=== PATIENT | male | born 1950 | race Caucasian/White ===

== ENCOUNTER → 2018-03-08 | Outpatient (CLI) | payer MEDICARE ==
--- NOTE | 2018-03-08 15:01 | CT ---
EXAMINATION TYPE: CT angio chest DATE OF EXAM: 03/08/2018 2:43 PM COMPARISON: None HISTORY: Chest pain and shortness of breath. CT DLP: 261.4 mGycm Automated exposure control for dose reduction was used. CONTRAST: CTA scan of the thorax is performed with IV Contrast, patient injected with 60ml mL of Isovue 370, pu lmonary embolism protocol. . FINDINGS: LUNGS: The lungs are grossly clear, there is no concerning parenchymal mass or nodule identified. T here is no pleural effusion or pneumothorax seen. The tracheobronchial tree is patent. Changes noted . 3 mm nodule right upper lobe MEDIASTINUM: There is satisfactory enhancement of the pulmonary artery and its branches, there is no CT evidence for pulmonary embolism. There are no greater than 1 cm hilar or mediastinal lymph nodes. No pericardial effusion is seen. Atherosclerotic change of the aorta. Coronary artery calcificatio n noted. Tiny pericardial effusion. Mild atherosclerotic change of the great vessels. Ascending aorta measures a maximal dimension of 3.7 cm OTHER: There is a spinal stimulator device or wire overlying the thoracic spine. Hypertrophic and de generative change of the vertebral column. 2.8 cm right adrenal lesion measures -25 Hounsfield units suggestive of adenoma. IMPRESSION: 1. No diagnostic evidence of central pulmonary embolism. 2. 3 mm right upper lobe pulmonary nodule too small to characterize recommend 6 month follow-up study to assess stability. 3. Correlate for COPD. 4. Tiny pericardial effusion.
== END | disposition home or self-care (01) ==
LOC: RADCTMAIN 13:25
PROVIDERS: ATTEND Family Medicine
DX: R91.1 Solitary pulmonary nodule (principal); R07.9 Chest pain, unspecified; R06.02 Shortness of breath; Z88.5 Allergy status to narcotic agent
CPT/HCPCS: 85379; 82565; 84520; 71275; Q9967

== ENCOUNTER → 2019-12-13 | Outpatient (CLI) | payer MEDICARE | END | disposition home or self-care (01) | LOC: LABWHC1 13:16 | PROVIDERS: ATTEND Family Medicine | DX: Z03.818 Encounter for observation for suspected exposure to other biological agents ruled out (principal) | CPT/HCPCS: U0003; C9803 ==

== ENCOUNTER → 2020-09-05 | Outpatient (CLI) | payer MEDICARE ==
[2020-09-05 18:54] LABS: Basophils # (A) 0.02 X 10*3/uL (0.00-0.10); Basophils % (A) 0.3 %; Eosinophils # (A) 0.14 X 10*3/uL (0.04-0.35); Eosinophils % (A) 2.4 %; HCT 35.9 % (39.6-50.0); HGB 10.9 g/dL (13.0-17.0); Lymphocytes # (A) 1.56 X 10*3/uL (0.90-5.00); Lymphocytes % (A) 26.5 %; MCH 29.2 pg (27.0-32.0); MCHC 30.4 g/dL (32.0-37.0); MCV 96.2 fL (80.0-97.0); Mean Platelet Volume 9.1 fL (9.5-12.2); Monocytes # (A) 0.48 X 10*3/uL (0.20-1.00); Monocytes % (A) 8.2 %; Neutrophils # (A) 3.66 X 10*3/uL (1.80-7.70); Neutrophils % (A) 62.3 %; Platelet Count 450 X 10*3/uL (140-440); RBC 3.73 X 10*6/uL (4.40-5.60); RDW 13.8 % (11.5-14.5); WBC 5.88 X 10*3/uL (4.50-10.00)
[2020-09-05 22:50] LABS: % Iron Saturation 18.4 (15.00-50.00); African American GFR (CKD) 71.1 (60.0-200.0); Albumin 4.1 g/dL (3.80-4.90); Albumin/Globulin Ratio 1.58 (1.60-3.17); Anion Gap 9.7 mmol/L (4.00-12.00); BUN/Creat Ratio 15.83 Ratio (12.00-20.00); Calcium 9.8 mg/dL (8.7-10.3); Carbon Dioxide 27.3 mmol/L (21.6-31.8); Globulin 2.6 g/dL (1.6-3.3); Non-African American GFR(CKD) 61.3 (60.0-200.0); Potassium 4.7 mmol/L (3.5-5.5); Total Bilirubin 0.4 mg/dL (0.3-1.2); Total Protein 6.7 g/dL (6.2-8.2)
[2020-09-05 23:33] LABS: Ferritin 617.5 ng/mL (22.0-322.0)
== END | disposition home or self-care (01) ==
LOC: LABWHC1 09:41
PROVIDERS: ATTEND Internal Medicine
DX: K25.9 Gastric ulcer, unspecified as acute or chronic, without hemorrhage or perforation (principal)
CPT/HCPCS: 36415; 80053; 82728; 83540; 83550; 85025

== ENCOUNTER → 2020-09-22 | Outpatient (CLI) | payer MEDICARE | END | disposition home or self-care (01) | LOC: RADMRIMAIN 08:49 | PROVIDERS: ATTEND Internal Medicine | DX: Z53.9 Procedure and treatment not carried out, unspecified reason (principal) ==

== ENCOUNTER 2020-10-07 08:23 | Day surgery (SDC) | payer MEDICARE ==
[2020-10-02 10:49] VITALS: BMI 24.8
[~2020-10-07 08:23] MED LIST: LACTATED RINGERS 1,000 ML IV SCH; LIDOCAINE 1% (10MG/ML) FOR IV START INTRADERMA PRN
[2020-10-07 08:47] VITALS: RESP 20; TEMP 97.6
[2020-10-07] MEDS ORDERED: LIDOCAINE 1% INJ 10MG/ML (20 ML MDV) ONE (09:14)
[2020-10-07] MEDS ORDERED: PROPOFOL 10 MG/ML 20 ML VIAL IV ONE (09:14)
--- NOTE | 2020-10-07 09:34 | P.PCN ---
Date of Procedure: 10/07/20 Description of Procedure: BRIEF HISTORY: Patient is a 70-year-old male presents for outpatient esophagogastroduodenoscopy for evaluation of pancreatitis and history of peptic ulcer disease. The patient had been seen at an outside hospital where he was treated for ileus, GI bleed and splenic vein thrombosis. EGD on 08/13/20 showed severe esophagitis, a cratered gastric ulcer in a linear gastric ulcer in the body and all with no active bleeding. The patient has been on Protonix therapy which has been decreased to daily. PROCEDURE PERFORMED: Esophagogastroduodenoscopy with biopsy. PREOPERATIVE DIAGNOSIS: Pancreatitis, peptic ulcer disease. ESTIMATED BLOOD LOSS: Minimal. IV sedation per anesthesia. PROCEDURE: After informed consent was obtained, the patient was brought into the endoscopy unit. IV sedation was administered by Anesthesia under continuous monitoring. Initially the Olympus GIF-190 video endoscope was inserted into the mouth. Esophagus intubated without any difficulty. It was gradually advanced into the stomach and duodenum and carefully examined. The bulb and the second part of the duodenum appeared normal, with biopsies taken. The scope at this time was withdrawn to the stomach, adequately insufflated with air, and upon careful examination, mucosa of the antrum, body, cardia and the fundus appeared normal, with some mild punctate erythema suggestive of mild gastritis biopsy of the antrum and body taken. Previously noted gastric ulcers appear to be well healed. The scope was then withdrawn into the esophagus. The GE junction was located at 41 cm from the incisors. The esophagus appeared marco antonio, with lower esophageal biopsies taken l. There were no erosions or ulcerations seen and the patient tolerated the procedure well. IMPRESSION: 1. Mild gastritis. 2. Previously noted peptic ulcer disease and esophagitis appears to be well- healed. 3. Biopsies of duodenum, antrum body and lower esophagus. RECOMMENDATIONS: The findings of this examination were discussed with the patient and his . Okay to resume diet. Okay to resume medications today and anticoagulation tomorrow. Recommend patient remains on daily Protonix therapy. Await pathology from biopsies. Follow up in the clinic as scheduled.
[2020-10-07 09:49] VITALS: PULSE 62
[2020-10-07 09:55] VITALS: BP 110/71
== END 2020-10-07 10:05 | disposition home or self-care (01) ==
LOC: ORWHC2ENDO 08:23
PROVIDERS: ATTEND Internal Medicine
DX: K29.50 Unspecified chronic gastritis without bleeding (principal); I10 Essential (primary) hypertension; E78.5 Hyperlipidemia, unspecified; Z87.891 Personal history of nicotine dependence; F41.9 Anxiety disorder, unspecified; K21.00 Gastro-esophageal reflux disease with esophagitis, without bleeding; Z88.5 Allergy status to narcotic agent; Z79.01 Long term (current) use of anticoagulants; Z79.891 Long term (current) use of opiate analgesic
CPT/HCPCS: 88305; 88312; 43239; J2001; J2704

== ENCOUNTER → 2020-10-08 | Outpatient (CLI) | payer MEDICARE ==
[2020-10-08 14:03] LABS: Basophils % (A) 0 %; Eosinophils # (A) 0.2 k/uL (0-0.7); Eosinophils % (A) 4 %; HCT 31.9 % (39.0-53.0); HGB 10.9 gm/dL (13.0-17.5); Lymphocytes # (A) 1.3 k/uL (1.0-4.8); Lymphocytes % (A) 24 %; MCH 31.2 pg (25.0-35.0); MCHC 34.1 g/dL (31.0-37.0); MCV 91.6 fL (80.0-100.0); Mean Platelet Volume 6.6; Monocytes # (A) 0.3 k/uL (0-1.0); Monocytes % (A) 6 %; Neutrophils # (A) 3.4 k/uL (1.3-7.7); Neutrophils % (A) 65 %; Platelet Count 323 k/uL (150-450); RBC 3.48 m/uL (4.30-5.90); RDW 14.6 % (11.5-15.5); WBC 5.3 k/uL (3.8-10.6)
[2020-10-08 14:16] LABS: Albumin 3.8 g/dL (3.5-5.0); Calcium 9.2 mg/dL (8.4-10.2); Potassium 5.1 mmol/L (3.5-5.1); Total Bilirubin 0.3 mg/dL (0.2-1.3); Total Protein 6.1 g/dL (6.3-8.2)
--- NOTE | 2020-10-08 15:23 | CT ---
CT pancreas HISTORY: Acute pancreatitis Helical acquisition obtained through the pancreas. Post contrast administration, patient received 100 cc Isovue-370 IV. Automated exposure control for dose reduction. DLP 755.10 mGycentimeters. No comparisons There is a focal oval area of low-attenuation involving the body tail the pancreas measuring approxim ately 11 cm in greatest transverse dimension by 6 cm in AP dimension by 6 cm in cephalad to caudal di mension with a peripheral enhancing wall, fluid attenuation, possibly internal septations. The liver, gallbladder, left adrenal gland, kidneys, and spleen are unremarkable. Right adrenal gland shows a low dense focus measuring 2.1 cm likely representing an adenoma. Infrarenal abdominal aorta show change measuring 4.3 calcification and plaque noted. No retroperitone al adenopathy or ascites. Fluid-filled loops of small bowel are noted and are nonspecific. Lung bases show emphysematous changes. No pleural effusion, there is small pericardial effusion. Postop changes are noted to the lumbar spine, there is degenerative disc change in the visualized spi ne. IMPRESSION: Findings may represent sequela of pancreatitis, pseudocyst formation along the pancreas, lesser curvature of the stomach. Infrarenal abdominal aortic aneurysm. Postop changes.
[2020-10-09 20:34] LABS: % Iron Saturation 23.08 (15.00-50.00)
[2020-10-09 20:42] LABS: Ferritin 210.7 ng/mL (22.0-322.0)
== END | disposition home or self-care (01) ==
LOC: RADCTMAIN 13:11
PROVIDERS: ATTEND Internal Medicine
DX: K85.90 Acute pancreatitis without necrosis or infection, unspecified (principal); I71.4 Abdominal aortic aneurysm, without rupture
CPT/HCPCS: 80053; 82728; 83540; 83550; 85025; 74160; Q9967

== ENCOUNTER → 2021-02-18 | Outpatient (CLI) | payer MEDICARE ==
--- NOTE | 2021-02-18 12:25 | NM ---
EXAMINATION TYPE: NM stress cardiolite complete DATE OF EXAM: 02/18/2021 COMPARISON: NONE HISTORY: Chest pain TECHNIQUE: After the intravenous administration of 9 mCi Tc 99m Sestamibi - Rest images obtained 45 minutes post injection. The patient exercised using a DELIA protocol and 1 minute prior to peak exe rcise was injected with 24.3 mCi Tc 99m Sestamibi - Stress images obtained 20 minutes post injection. FINDINGS: Targeted heart rate was achieved during performance of the study. Review of stress and rest SPECT marisol ges demonstrates multiple tiny area of stress-induced reversibility involving the inferior septum. G ated analysis shows normal wall motion with an estimated left ventricular ejection fraction of 56 %. IMPRESSION: 1. Cannot exclude a tiny area of stress-induced reversible ischemia in the inferior septum correlate clinically.
--- NOTE | 2021-02-18 14:30 | EST ---
EXERCISE STRESS AGE: 70 SEX: M HT: 69 WT: 174 lbs PROTOCOL: Cardiolite STAGE: 2 DURATION OF EXERCISE: 8:00 HEART RATE REST: 69 BLOOD PRESSURE REST: 130/85 MAXIMUM HEART RATE ACHIEVED: 129 MAXIMUM BLOOD PRESSURE: 200/102 85% MPHR: 128 100% MPHR: 151 METS: 7.1 RESULTS: Baseline EKG revealed normal sinus rhythm, with LVH by voltage criteria, isolated PVCs and no significant ST-segment changes. Patient exercised on standard King protocol for 8 minutes and achieved a maximal heart rate of 129 beats per minute which is 85% of predicted maximum. Developed fatigue and shortness of breath. There was a lot of baseline artifact but no ST-segment changes to indicate ischemia. Peak heart rate was almost 150 beats per minute. There were no EKG changes to indicate ischemia. There was a lot of baseline artifact. By EKG criteria, this is a negative stress test with fair exercise capacity. The nuclear scan results which are more pertinent, will be reported by the radiologist. The patient also complained of some nondescript chest tightness, but the quality of pain was not anginal. The nuclear scan results which are more pertinent, will be reported by the radiologist. MMODL / IJN: [id number] /
== END | disposition home or self-care (01) ==
LOC: RADNMMAIN 09:06
PROVIDERS: ATTEND Urology
DX: I20.9 Angina pectoris, unspecified (principal)
CPT/HCPCS: 93017; 78452; A9500

== ENCOUNTER 2021-02-27 06:32 | Day surgery (SDC) | payer MEDICARE ==
[2021-02-25 13:56] VITALS: BMI 25.4
[~2021-02-27 06:32] MED LIST changes: +ALPRAZolam 0.25 MG TAB PO PRN; +ALPRAZolam 0.5 MG TAB PO PRN; +ASPIRIN 325 MG TAB PO STA; +ATORVASTATIN 80 MG TAB PO STA; -LACTATED RINGERS 1,000 ML IV SCH; -LIDOCAINE 1% (10MG/ML) FOR IV START INTRADERMA PRN; +NITROGLYCERIN SL TABS 0.4 MG TAB SUBLINGUAL PRN; +SODIUM CHLORIDE 0.9% 1,000 ML in EMPTY BAG 1 BAG IV SCH
[2021-02-27 07:18] VITALS: TEMP 97.9
[2021-02-27] MEDS ORDERED: fentaNYL (PF) 50 MCG/ML 2 ML AMP ONE (07:26)
[2021-02-27] MEDS ORDERED: HEPARIN SODIUM 1,000 UN/ML (10ML VL) ONE (07:26)
[2021-02-27] MEDS ORDERED: fentaNYL (PF) 50 MCG/ML 2 ML AMP IV ONE (07:39)
[2021-02-27] MEDS ORDERED: LIDOCAINE 1% INJ 10MG/ML (20 ML MDV) SQ ONE (07:45)
[2021-02-27] MEDS ORDERED: MIDAZOLAM 2 MG/2 ML VIAL IV ONE (07:47)
[2021-02-27] MEDS ORDERED: HEPARIN SODIUM 1,000 UN/ML (10ML VL) IV ONE (07:52)
[2021-02-27] MEDS ORDERED: IOPAMIDOL-370 125ML BTL INJ ONE ×2 (08:03)
[2021-02-27] MEDS ORDERED: IOPAMIDOL-370 100ML BTL INJ ONE (08:06)
[2021-02-27] MEDS ORDERED: RX INFO: IV CONTRAST WAS GIVEN 1 EACH MISC MISCELLANE PRN (08:22)
[2021-02-27] MEDS ORDERED: SODIUM CHLORIDE 0.9% 1,000 ML IV SCH (08:30)
[2021-02-27] MEDS ORDERED: SENNOSIDES 8.6 MG TAB PO SCH (09:00)
[2021-02-27] MEDS ORDERED: CHOLECALCIFEROL 25 MCG (1000 IU) TABLET PO SCH (09:00)
[2021-02-27] MEDS ORDERED: FERROUS SULFATE 325 MG TAB PO SCH (09:00)
[2021-02-27 09:13] VITALS: RESP 16
--- NOTE | 2021-02-27 11:55 | CC ---
CARDIAC CATHETERIZATION REPORT DATE OF PROCEDURE: Mr. Adhikari is a 70-year-old male with known history of hypertension, hyperlipidemia and abdominal aortic aneurysm who has been complaining of episodes of chest discomfort. He underwent myocardial perfusion imaging recently that revealed evidence of inducible ischemia. In view of that, recommendation was made regarding cardiac catheterization. The procedure as well as its risks and complications were discussed with the patient, who was in full understanding and agreement. PROCEDURE DESCRIPTION: Patient was brought to the labelling machine operator in a fasting, semi-sedated state after receiving fentanyl and Benadryl and achieving a moderate conscious sedated state. Using Xylocaine anesthesia and Seldinger technique, a 6-Irish sheath was introduced in the right radial artery. Selective right and left coronary angiography was performed using 5- Irish 3.5 bend right and left Emelia catheters. Multiple views were taken of the arteries, including hemiaxial views. Following that, a 5-Irish tight pigtail catheter was introduced into the left ventricle and a 30-degree [place] view of the left ventricle was obtained. Following that, catheter and sheath were removed. Hemostasis was obtained with deployment of a TR band. There was no immediate complication. Patient was returned to his room in stable condition. Of note, the patient received 4000 units of intravenous heparin as well as intra-arterial verapamil. FINDINGS: LEFT MAIN: This is a short-sized vessel, bifurcating into left circumflex and left anterior descending coronary artery. Left main coronary artery has no evidence of high- grade stenosis. LEFT ANTERIOR DESCENDING ARTERY: This is a large-sized vessel reaching to the apex with a wrap around the apex segment giving rise to 2 small to moderate-sized diagonal branches proximally. The left anterior descending artery as well as its branches have no evidence of obstructive coronary artery disease. LEFT CIRCUMFLEX: This is a dominant vessel giving rise to a large obtuse marginal branch proximally, distally bifurcating into PDA and posterolateral segment and branches. The left circumflex as well as its branches have no evidence of obstructive coronary artery disease. RIGHT CORONARY ARTERY: This vessel is moderate in caliber, codominant, has a superior takeoff and has no evidence of high-grade stenosis. LEFT VENTRICULOGRAM: Left ventriculogram was performed in 30-degree [place] view and revealed normal left ventricular size and systolic function. Evidence of abdominal aortic aneurysm was noted, infrarenal. There was no significant mitral regurgitation. HEMODYNAMICS: There was no gradient across the aortic valve. The left ventricular end- diastolic pressure was 12-16 mmHg. CONCLUSION: 1. Normal coronary arteries. 2. Normal left ventricular size and systolic function. 3. Evidence of abdominal aortic aneurysm. RECOMMENDATIONS: In view of findings and anatomy, I have recommended continued medical therapy with the aggressive risk factor modifications that have been initiated. Those findings and recommendations were discussed with the patient and his family, who are in full understanding and agreement. MMODL / IJN: [id number] /
--- NOTE | 2021-02-27 11:55 | LTR ---
February 27, 2021 To: Dr. Nicole Re: Jordi Adhikari (52) Dear Dr. Nicole, I had the pleasure of performing cardiac catheterization on Mr. Adhikari at [facility] on February 27, and a full copy of the procedure will be forwarded to you. In brief, he was found to have no evidence of obstructive coronary artery disease, with preserved left ventricular size and systolic function, and evidence of abdominal aortic aneurysm. Based on these findings, I have recommended continued medical therapy with the aggressive coronary risk modifications that have been initiated. Thank you again for allowing me to participate in this patient's care. Please feel free to call with any questions. Sincerely, aRhul Spicer M.D. ABBEY / LENA: [id number] /
[2021-02-27 12:41] VITALS: BP 131/78; PULSE 50
[2021-02-27] MEDS ORDERED: traZODone HCL 100 MG TAB PO SCH (21:00)
[2021-02-27] MEDS ORDERED: ATORVASTATIN 80 MG TAB PO SCH (21:00)
[2021-02-28] MEDS ORDERED: NON FORMULARY DRUG (Omeprazole 20 MG Capsule) PO SCH (07:30)
== END 2021-02-27 12:00 | disposition home or self-care (01) ==
LOC: CATHCVL 06:32
PROVIDERS: ATTEND Internal Medicine Interventional Cardiology
DX: R07.9 Chest pain, unspecified (principal); Z20.822 Contact with and (suspected) exposure to COVID-19; I10 Essential (primary) hypertension; E78.5 Hyperlipidemia, unspecified; I71.4 Abdominal aortic aneurysm, without rupture; Z87.891 Personal history of nicotine dependence; J44.9 Chronic obstructive pulmonary disease, unspecified; I73.9 Peripheral vascular disease, unspecified; Z79.01 Long term (current) use of anticoagulants; Z79.899 Other long term (current) drug therapy
CPT/HCPCS: 93458; 87635; C1894; C1769; J2250; J2001; J3010; J1644; Q9967 ×2

== ENCOUNTER → 2021-05-05 | Outpatient (CLI) | payer MEDICARE ==
[2021-05-05 17:53] LABS: African American GFR (CKD) >90 (>60 ml/min/1.73 sqM); Blood Urea Nitrogen 19 mg/dL (9-20); Non-African American GFR(CKD) 80 (>60 ml/min/1.73 sqM)
--- NOTE | 2021-05-06 08:21 | CT ---
EXAMINATION TYPE: CT abdomen w con DATE OF EXAM: 05/05/2021 COMPARISON: 10/08/2020 HISTORY: Pseudocyst, pancreas. Hx pancreatitis. Consulted w/Dr. Mendez, no pancreatic protocol necess kelli, Abdomen with is sufficient CT DLP: 541.20 mGycm CONTRAST: CT scan of the abdomen and pelvis is performed with Oral Contrast and with IV Contrast, patient injec vicky with 100 mL of Isovue 300. FINDINGS: LUNG BASES-: No visible nodule. No infiltrate. LIVER/GB: No calcified gallstones. No space occupying hepatic lesion. Biliary tree is of normal ca liber. PANCREAS: There is pseudocyst again noted along the course of the of the pancreatic body which is sma ller in size and currently measures 9.1 cm x 5.0 cm versus 12.2 x 5.9 cm previously. No additional co llections are seen. The remainder of the pancreas is unremarkable. SPLEEN: No splenic enlargement. No lesion seen. ADRENALS: Stable right adrenal nodule measuring 1.8 cm. No thickening. KIDNEYS/BLADDER: No hydronephrosis. No nephrolithiasis. No distinct renal mass. Urinary bladder g rossly unremarkable. BOWEL: Normal appendix. Normal bowel caliber. No inflammation. GENITAL ORGANS: No gross abnormality. LYMPH NODES: No greater than 1cm abdominal or pelvic lymph nodes are appreciated. AORTA: Infrarenal abdominal aortic aneurysm measuring 3.8 cm AP dimension. OSSEOUS STRUCTURES: No significant abnormality is seen. OTHER: No significant additional abnormality is seen. IMPRESSION: 1. pseudocyst again noted along the course of the of the pancreatic body which is smaller in size and currently measures 9.1 cm x 5.0 cm versus 12.2 x 5.9 cm previously. No additional collections are se en.
== END | disposition home or self-care (01) ==
LOC: RADCTMAIN 16:43
PROVIDERS: ATTEND Internal Medicine Gastroenterology
DX: K86.3 Pseudocyst of pancreas (principal)
CPT/HCPCS: 82565; 84520; 74160; 36415; Q9967

== ENCOUNTER → 2021-10-26 | Outpatient (CLI) | payer MEDICARE ==
[2021-10-26 09:37] LABS: African American GFR (CKD) >90 (>60 ml/min/1.73 sqM); Blood Urea Nitrogen 14 mg/dL (9-20); Non-African American GFR(CKD) 87 (>60 ml/min/1.73 sqM)
--- NOTE | 2021-10-26 12:29 | CT ---
EXAMINATION TYPE: CT abdomen w con DATE OF EXAM: 10/26/2021 COMPARISON: CT dated 05/05/2021 HISTORY: Pseudocyst of Pancreas CT DLP: 561.8 mGycm Automated exposure control for dose reduction was used. TECHNIQUE: Helical acquisition of images was performed from the lung bases through the top of iliac crest to include entire abdomen. CONTRAST: Performed without Oral Contrast and with IV Contrast, patient injected with 100 mL of Isovue 300. FINDINGS: LUNG BASES: COPD changes. LIVER/GB: No significant abnormality is appreciated. PANCREAS: Slight interval regression of the previously seen heterogeneous cyst replacing the pancreat ic body and tail measuring 4.8 x 8.7 x 5.2 cm compared to 4.8 x 9.2 x 5.3 cm previously. Unremarkable pancreatic head. SPLEEN: No significant abnormality is seen. ADRENALS: Stable right adrenal nodule measuring 19 mm. Unremarkable left adrenal. KIDNEYS: Tiny focal cortical defect is seen at the lateral aspect of the right kidney. Stable slightl y hyperdense left renal cyst likely representing a proteinaceous/hemorrhagic cyst. Unremarkable kidne ys otherwise. BOWEL: Unremarkable stomach, duodenum and visualized small bowel. No gross abnormality of the visual ized portion of the colon. LYMPH NODES: No pathologically enlarged abdominal lymph nodes. OSSEOUS STRUCTURES: Previous lower lumbar and left sacroiliac joint fixation. FREE AIR: No free air is visualized. OTHER: Arterial atherosclerotic calcification. Multilobar infrarenal abdominal aortic aneurysm measur ing up to 5 cm, for vascular surgery consultation. No sizable abdominal ascites. Small fat-containing umbilical hernia. IMPRESSION: Persistent heterogeneous cyst replacing the pancreatic body and tail, only slightly regressed in size compared to April 2021 CT scan as described above. Other findings and recommendations as describe d above.
== END | disposition home or self-care (01) ==
LOC: RADCTMAIN 08:45
PROVIDERS: ATTEND Internal Medicine Gastroenterology
DX: K86.3 Pseudocyst of pancreas (principal)
CPT/HCPCS: 82565; 84520; 74160; 36415; Q9967

== ENCOUNTER 2022-02-14 11:30 | Inpatient (IN) | payer MEDICARE ==
[2022-02-14] MEDS ORDERED: DIPH,PERTUS(ACELL)TETVAC-LF 0.5 ML VIAL IM ONE (11:43)
[2022-02-14] MEDS ORDERED: SODIUM CHLORIDE 0.9% 500 ML 500 ML IV STA (11:43)
[2022-02-14] MEDS ORDERED: KETOROLAC 15 MG/ML 1 ML VIAL IVP STA (11:45)
[2022-02-14] MEDS ORDERED: MORPHINE SULFATE 2 MG/ML SYRINGE IVP STA ×2 (11:46→12:32)
[2022-02-14 11:52] LABS: Glucose,Whole Blood 130 mg/dL (70-110)
[2022-02-14 12:12] LABS: Basophils % (A) 0 %; Eosinophils # (A) 0.2 k/uL (0-0.7); Eosinophils % (A) 2 %; HCT 37.7 % (39.0-53.0); HGB 12.7 gm/dL (13.0-17.5); Lymphocytes # (A) 0.8 k/uL (1.0-4.8); Lymphocytes % (A) 10 %; MCH 31.1 pg (25.0-35.0); MCHC 33.7 g/dL (31.0-37.0); Mean Platelet Volume 7.4; Monocytes # (A) 0.3 k/uL (0-1.0); Monocytes % (A) 3 %; Neutrophils # (A) 6.5 k/uL (1.3-7.7); Neutrophils % (A) 83 %; Platelet Count 373 k/uL (150-450); RBC 4.08 m/uL (4.30-5.90); RDW 13.3 % (11.5-15.5); WBC 7.8 k/uL (3.8-10.6)
[2022-02-14 12:16] LABS: MCV 92.5 fL (80.0-100.0)
[2022-02-14 12:17] LABS: ALT 27 U/L (4-49); AST 30 U/L (17-59); African American GFR (CKD) >90 (>60 ml/min/1.73 sqM); Albumin 4.4 g/dL (3.5-5.0); Alcohol <10 mg/dL; Alkaline Phosphatase 89 U/L (38-126); Anion Gap 12 mmol/L; Blood Urea Nitrogen 16 mg/dL (9-20); Calcium 9.6 mg/dL (8.4-10.2); Carbon Dioxide 22 mmol/L (22-30); Chloride 101 mmol/L (98-107); Glucose 138 mg/dL (74-99); Non-African American GFR(CKD) 85 (>60 ml/min/1.73 sqM); Potassium 4.5 mmol/L (3.5-5.1); Sodium 135 mmol/L (137-145); Total Bilirubin 0.5 mg/dL (0.2-1.3); Total Protein 6.5 g/dL (6.3-8.2)
[2022-02-14 12:18] LABS: Partial Thromboplastin Time 23.2 sec (22.0-30.0); Prothrombin Time 11.2 sec (9.0-12.0)
--- NOTE | 2022-02-14 12:21 | XR ---
Right wrist. HISTORY: Pain following trauma. COMPARISON: None. TECHNIQUE: 3 views of the right wrist are obtained. FINDINGS: There is a markedly comminuted intra-articular displaced fracture of the distal right radius with ape x volar angulation. There is a probable small avulsion fracture of the ulnar styloid as well. The carpal bones and articulations are normal. No soft tissue abnormalities are seen. IMPRESSION: Fracture of the right wrist as described above.
--- NOTE | 2022-02-14 12:24 | XR ---
Pelvis: HISTORY: Pain following trauma. COMPARISON: None. TECHNIQUE: 2 AP views of the pelvis were obtained. FINDINGS: There is fusion of the left SI joint. There is metallic fusion of the lower lumbar spine. The osseous structures are mildly osteopenic. There is no diastases of the pubic symphysis. There are no pelvic fractures. The hips are normal and symmetric bilaterally without fracture or disl ocation. IMPRESSION: 1. Postsurgical changes of the lower lumbar spine and pelvis. 2. No evidence of acute fracture.
--- NOTE | 2022-02-14 12:25 | XR ---
EXAMINATION TYPE: XR chest 1V portable DATE OF EXAM: 02/14/2022 COMPARISON: NONE HISTORY: Trauma TECHNIQUE: Single frontal view of the chest is obtained. FINDINGS: There is no focal air space opacity, pleural effusion, or pneumothorax seen. The cardiac silhouette size is within normal limits. The osseous structures are intact. IMPRESSION: No acute process.
--- NOTE | 2022-02-14 12:31 | CT ---
EXAMINATION TYPE: CT brain denise drake DATE OF EXAM: 02/14/2022 COMPARISON: None HISTORY: Fall from [address] DLP: 1676.5 mGycm Automated exposure control for dose reduction was used. TECHNIQUE: CT scan of the head and cervical spine are performed without contrast. FINDINGS: There is no acute intracranial hemorrhage, mass effect, or midline shift identified. The ventricles and sulci are within normal limits in size. The globes are intact and the visualized sin uses are clear. Cervical spine is visualized in its entirety from C1 through upper thoracic levels and demonstrates s atisfactory alignment without evidence of acute fracture or dislocation. Prevertebral soft tissue ap pears within normal limits. The C1-C2 articulation is unremarkable. There is severe degenerative di sc C6-7 level and moderate degenerative disc disease at the C3-4 and C5-C6 levels. IMPRESSION: 1. There is no acute fracture or dislocation evident in the cervical spine. 2. No acute intracranial hemorrhage, mass effect, or midline shift is seen.
--- NOTE | 2022-02-14 12:32 | ED ---
General Adult HPI - General Chief complaint: Fall Stated complaint: fell 5' from ladder, open fx arm Time Seen by Provider: 02/14/22 11:30 Source: patient, EMS, RN notes reviewed, old records reviewed Limitations: no limitations - History of Present Illness Initial comments: This is a 71-year-old male who presents emergency department after falling off of a ladder his feet red 5 feet in the air. Patient is on blood thinners. Patient doesn't think he hit his head he doesn't remember necessarily. Patient complains of right wrist pain. Patient also states he hurt his right buttocks area. Patient denies any headache patient denies numbness weakness. Patient does complain of some posterior neck pain. Patient denies any chest or upper back pain. Patient denies any abdominal pain. Patient denies any other extremity pain. - Related Data Home Medications Medication Instructions Recorded Confirmed Apixaban [Eliquis] 5 mg PO BID 10/02/20 02/27/21 Atorvastatin [Lipitor] 80 mg PO HS 10/02/20 02/27/21 Cholecalciferol [Vitamin D3 (25 25 mcg PO DAILY 10/02/20 02/27/21 Mcg = 1000 Iu)] Ferrous Sulfate [Feosol] 325 mg PO DAILY 10/02/20 02/27/21 Sennosides [Senna] 8.6 mg PO BID 10/02/20 02/27/21 diazePAM [Valium] 10 mg PO HS 10/02/20 02/27/21 oxyCODONE-APAP 10-325MG [Percocet 1 tab PO Q6HR PRN 10/02/20 02/27/21 10-325 mg] traZODone HCL 100 mg PO HS 10/02/20 02/27/21 Omeprazole [PriLOSEC] 20 mg PO AC-BRKFST 02/25/21 02/27/21 Allergies Allergy/AdvReac Type Severity Reaction Status Date / Time hydrocodone bitartrate Allergy Itching Unverified 02/25/21 13:45 [From Vicodin] Review of Systems ROS Statement: Those systems with pertinent positive or pertinent negative responses have been documented in the HPI. ROS Other: All systems not noted in ROS Statement are negative. Past Medical History Past Medical History: Chest Pain / Angina, GERD/Reflux, Hyperlipidemia, Hypertension, Prostate Disorder Additional Past Medical History / Comment(s): blood clot in splenic vein, pancreatitis, constipation, History of Any Multi-Drug Resistant Organisms: None Reported Past Surgical History: Back Surgery, Tonsillectomy Additional Past Surgical History / Comment(s): back surgery x 5(Fusion,laminectomy,cage) Past Anesthesia/Blood Transfusion Reactions: Motion Sickness Past Psychological History: No Psychological Hx Reported Smoking Status: Former smoker - Past Family History Mother Family Medical History: No Reported History General Exam - General Exam Comments Initial Comments: GENERAL: Patient is well-developed and well-nourished. Patient is nontoxic and well- hydrated and is in moderate distress. ENT: Neck is soft and supple. No significant lymphadenopathy is noted. Oropharynx is clear. Moist mucous membranes. Patient had some spinous process tenderness at about the C4 region EYES: The sclera were anicteric and conjunctiva were pink and moist. Extraocular movements were intact and pupils were equal round and reactive to light. Eyelids were unremarkable. PULMONARY: Unlabored respirations. Good breath sounds bilaterally. No audible rales rhonchi or wheezing was noted. CARDIOVASCULAR: There is a regular rate and rhythm without any murmurs gallops or rubs. ABDOMEN: Soft and nontender with normal bowel sounds. SKIN: Skin is clear with no lesions or rashes and otherwise unremarkable. NEUROLOGIC: Patient is alert and oriented x3. Cranial nerves II through XII are grossly intact. Motor and sensory are also intact. Normal speech, volume and content. Symmetrical smile. MUSCULOSKELETAL: Patient has some tenderness on the iliac crest on the right. Patient also has a gross deformity of the right wrist and it appears to be open. Patient does have normal capillary refill and his fingertips and normal sensation of the fin gertips LYMPHATICS: No significant lymphadenopathy is noted PSYCHIATRIC: Normal psychiatric evaluation. Limitations: no limitations Course Vital Signs 02/14/22 02/14/22 11:43 12:15 Temperature 98 F 98 F Pulse Rate 60 51 L Respiratory 20 16 Rate Blood Pressure 163/109 182/105 O2 Sat by Pulse 100 99 Oximetry Medical Decision Making - Medical Decision Making EKG shows sinus bradycardia 54 bpm NC interval 244 QRS is 78 QT interval 410 QTC is 398. Patient's EKG shows no ST segment elevation or depression. I called as a priority [address] of the brain and C-spine showed no acute abnormality. At this point time I went in the room and remove the collar and examine his neck he was still significantly tender and he was tender with any flexion or turning of the head right to left side but the collar back in place. X-ray of the chest and pelvis show no acute abnormality however he still having considerable right lower pelvic pain and the SI joint area and some in the lumbar sacral spine now so a CAT scan will be ordered. Wrist shows a comminuted distal radius fracture with significant displacement there is also a fracture of the distal ulna CT of the C-spine abdomen pelvis showed no acute abnormality. Dr. Contreras came back down and will be taking the patient to the OR Wound was irrigated the emergency department. - Lab Data Result diagrams: 02/14/22 11:54 02/14/22 11:54 Lab Results 02/14/22 02/14/22 02/14/22 Range/Units 11:50 11:51 11:54 WBC 7.8 (3.8-10.6) k/uL RBC 4.08 L (4.30-5.90) m/uL Hgb 12.7 L (13.0-17.5) gm/dL Hct 37.7 L (39.0-53.0) % MCV 92.5 D (80.0-100.0) fL MCH 31.1 (25.0-35.0) pg MCHC 33.7 (31.0-37.0) g/dL RDW 13.3 (11.5-15.5) % Plt Count 373 (150-450) k/uL MPV 7.4 Neutrophils % 83 % Lymphocytes % 10 % Monocytes % 3 % Eosinophils % 2 % Basophils % 0 % Neutrophils # 6.5 (1.3-7.7) k/uL Lymphocytes # 0.8 L (1.0-4.8) k/uL Monocytes # 0.3 (0-1.0) k/uL Eosinophils # 0.2 (0-0.7) k/uL Basophils # 0.0 (0-0.2) k/uL PT (9.0-12.0) sec INR (<1.2) APTT (22.0-30.0) sec Sodium (137-145) mmol/L Potassium (3.5-5.1) mmol/L Chloride (98-107) mmol/L Carbon Dioxide (22-30) mmol/L Anion Gap mmol/L BUN (9-20) mg/dL Creatinine (0.66-1.25) mg/dL Est GFR (CKD-EPI)AfAm (>60 ml/min/1.73 sqM) Est GFR (CKD-EPI)NonAf (>60 ml/min/1.73 sqM) Glucose (74-99) mg/dL POC Glucose (mg/dL) 130 H (70-110) mg/dL POC Glu Family Services Coordinator ID [place], Daniel Calcium (8.4-10.2) mg/dL Total Bilirubin (0.2-1.3) mg/dL AST (17-59) U/L ALT (4-49) U/L Alkaline Phosphatase (38-126) U/L Troponin I (0.000-0.034) ng/mL Total Protein (6.3-8.2) g/dL Albumin (3.5-5.0) g/dL Urine Opiates Screen (NotDetected) Ur Oxycodone Screen (NotDetected) Urine Methadone Screen (NotDetected) Ur Propoxyphene Screen (NotDetected) Ur Barbiturates Screen (NotDetected) U Tricyclic Antidepress (NotDetected) Ur Phencyclidine Scrn (NotDetected) Ur Amphetamines Screen (NotDetected) U Methamphetamines Scrn (NotDetected) U Benzodiazepines Scrn (NotDetected) Urine Cocaine Screen (NotDetected) U Marijuana (THC) Screen (NotDetected) Serum Alcohol mg/dL Blood Type O Positive Blood Type Recheck O Pos Bld Type Recheck Status No Antibody Screen NEGATIVE Spec Expiration Date 02/17/2022234902/14/22 02/14/22 02/14/22 Range/Units 11:54 11:54 11:54 WBC (3.8-10.6) k/uL RBC (4.30-5.90) m/uL Hgb (13.0-17.5) gm/dL Hct (39.0-53.0) % MCV (80.0-100.0) fL MCH (25.0-35.0) pg MCHC (31.0-37.0) g/dL RDW (11.5-15.5) % Plt Count (150-450) k/uL MPV Neutrophils % % Lymphocytes % % Monocytes % % Eosinophils % % Basophils % % Neutrophils # (1.3-7.7) k/uL Lymphocytes # (1.0-4.8) k/uL Monocytes # (0-1.0) k/uL Eosinophils # (0-0.7) k/uL Basophils # (0-0.2) k/uL PT 11.2 (9.0-12.0) sec INR 1.0 (<1.2) APTT 23.2 (22.0-30.0) sec Sodium 135 L (137-145) mmol/L Potassium 4.5 (3.5-5.1) mmol/L Chloride 101 (98-107) mmol/L Carbon Dioxide 22 (22-30) mmol/L Anion Gap 12 mmol/L BUN 16 (9-20) mg/dL Creatinine 0.91 (0.66-1.25) mg/dL Est GFR (CKD-EPI)AfAm >90 (>60 ml/min/1.73 sqM) Est GFR (CKD-EPI)NonAf 85 (>60 ml/min/1.73 sqM) Glucose 138 H (74-99) mg/dL POC Glucose (mg/dL) (70-110) mg/dL POC Glu Family Services Coordinator ID Calcium 9.6 (8.4-10.2) mg/dL Total Bilirubin 0.5 (0.2-1.3) mg/dL AST 30 (17-59) U/L ALT 27 (4-49) U/L Alkaline Phosphatase 89 (38-126) U/L Troponin I <0.012 (0.000-0.034) ng/mL Total Protein 6.5 (6.3-8.2) g/dL Albumin 4.4 (3.5-5.0) g/dL Urine Opiates Screen (NotDetected) Ur Oxycodone Screen (NotDetected) Urine Methadone Screen (NotDetected) Ur Propoxyphene Screen (NotDetected) Ur Barbiturates Screen (NotDetected) U Tricyclic Antidepress (NotDetected) Ur Phencyclidine Scrn (NotDetected) Ur Amphetamines Screen (NotDetected) U Methamphetamines Scrn (NotDetected) U Benzodiazepines Scrn (NotDetected) Urine Cocaine Screen (NotDetected) U Marijuana (THC) Screen (NotDetected) Serum Alcohol <10 mg/dL Blood Type Blood Type Recheck Bld Type Recheck Status Antibody Screen Spec Expiration Date 02/14/22 Range/Units 12:44 WBC (3.8-10.6) k/uL RBC (4.30-5.90) m/uL Hgb (13.0-17.5) gm/dL Hct (39.0-53.0) % MCV (80.0-100.0) fL MCH (25.0-35.0) pg MCHC (31.0-37.0) g/dL RDW (11.5-15.5) % Plt Count (150-450) k/uL MPV Neutrophils % % Lymphocytes % % Monocytes % % Eosinophils % % Basophils % % Neutrophils # (1.3-7.7) k/uL Lymphocytes # (1.0-4.8) k/uL Monocytes # (0-1.0) k/uL Eosinophils # (0-0.7) k/uL Basophils # (0-0.2) k/uL PT (9.0-12.0) sec INR (<1.2) APTT (22.0-30.0) sec Sodium (137-145) mmol/L Potassium (3.5-5.1) mmol/L Chloride (98-107) mmol/L Carbon Dioxide (22-30) mmol/L Anion Gap mmol/L BUN (9-20) mg/dL Creatinine (0.66-1.25) mg/dL Est GFR (CKD-EPI)AfAm (>60 ml/min/1.73 sqM) Est GFR (CKD-EPI)NonAf (>60 ml/min/1.73 sqM) Glucose (74-99) mg/dL POC Glucose (mg/dL) (70-110) mg/dL POC Glu Family Services Coordinator ID Calcium (8.4-10.2) mg/dL Total Bilirubin (0.2-1.3) mg/dL AST (17-59) U/L ALT (4-49) U/L Alkaline Phosphatase (38-126) U/L Troponin I (0.000-0.034) ng/mL Total Protein (6.3-8.2) g/dL Albumin (3.5-5.0) g/dL Urine Opiates Screen Detected H (NotDetected) Ur Oxycodone Screen Detected H (NotDetected) Urine Methadone Screen Not Detected (NotDetected) Ur Propoxyphene Screen Not Detected (NotDetected) Ur Barbiturates Screen Not Detected (NotDetected) U Tricyclic Antidepress Not Detected (NotDetected) Ur Phencyclidine Scrn Not Detected (NotDetected) Ur Amphetamines Screen Not Detected (NotDetected) U Methamphetamines Scrn Not Detected (NotDetected) U Benzodiazepines Scrn Detected H (NotDetected) Urine Cocaine Screen Not Detected (NotDetected) U Marijuana (THC) Screen Not Detected (NotDetected) Serum Alcohol mg/dL Blood Type Blood Type Recheck Bld Type Recheck Status Antibody Screen Spec Expiration Date Critical Care Time Critical Care Time: Yes Total Critical Care Time: 35 Disposition Clinical Impression: Fall, Neck pain, Fracture of radial shaft, with ulna, right, open Disposition: ADMITTED IP TO THIS HOSP Referrals: None,Stated [Primary Care Provider] - 1-2 days Time of Disposition: 14:10
[2022-02-14] MEDS ORDERED: MORPHINE SULFATE 4 MG/ML SYRINGE IVP STA ×2 (12:34→13:47)
[2022-02-14] MEDS ORDERED: ONDANSETRON 4 MG/2 ML VIAL IVP STA (12:39)
[2022-02-14 13:22] LABS: Amphetamine Screen,Urine Not Detected (NotDetected); Barbiturate Screen,Urine Not Detected (NotDetected); Benzodiazepines Screen,Urine Detected (NotDetected); Cocaine Screen,Urine Not Detected (NotDetected); Methadone Screen, Urine Not Detected (NotDetected); Opiate Screen,Urine Detected (NotDetected); Oxycodone Screen, Urine Detected (NotDetected); Phencyclidine Screen,Urine Not Detected (NotDetected); Tricyclic Antidepressant,Urine Not Detected (NotDetected); Urn Cannabinoid Scrn Not Detected (NotDetected)
--- NOTE | 2022-02-14 13:26 | P.HPOR ---
History of Present Illness H&P Date: 02/14/22 Chief Complaint: Neck pain, right wrist pain 71 yo male presented as a trauma activation after fall 5ft off a ladder at home while doing work around the house. He fell straight on his back and buttock and right wrist he felt a pop. He states pain in his right wrist and refuse to move at this time. He also has pain in his neck and back with any motion. He has a hx of several neck and back surgeries. Denies any numbness/tingling. Denies any bowel or bladder issues. Denies any weakness. states no f/c/sob/cp at this time. Denies any BHT or LOC with the fall. Review of Systems 16 pt ROS completed as staetd in HPI. All others reviewed negative. Constitutional: Reports as per HPI Past Medical History Past Medical History: Chest Pain / Angina, GERD/Reflux, Hyperlipidemia, Hypertension, Prostate Disorder Additional Past Medical History / Comment(s): blood clot in splenic vein, pancreatitis, constipation, History of Any Multi-Drug Resistant Organisms: None Reported Past Surgical History: Back Surgery, Tonsillectomy Additional Past Surgical History / Comment(s): back surgery x 5(Fusion,laminectomy,cage) Past Anesthesia/Blood Transfusion Reactions: Motion Sickness Past Psychological History: No Psychological Hx Reported Smoking Status: Former smoker - Past Family History Mother Family Medical History: No Reported History Medications and Allergies Home Medications Medication Instructions Recorded Confirmed Type Apixaban [Eliquis] 5 mg PO BID 10/02/20 02/27/21 History Atorvastatin [Lipitor] 80 mg PO HS 10/02/20 02/27/21 History Cholecalciferol [Vitamin D3 (25 25 mcg PO DAILY 10/02/20 02/27/21 History Mcg = 1000 Iu)] Ferrous Sulfate [Feosol] 325 mg PO DAILY 10/02/20 02/27/21 History Sennosides [Senna] 8.6 mg PO BID 10/02/20 02/27/21 History diazePAM [Valium] 10 mg PO HS 10/02/20 02/27/21 History oxyCODONE-APAP 10-325MG [Percocet 1 tab PO Q6HR PRN 10/02/20 02/27/21 History 10-325 mg] traZODone HCL 100 mg PO HS 10/02/20 02/27/21 History Omeprazole [PriLOSEC] 20 mg PO AC-BRKFST 02/25/21 02/27/21 History Allergies Allergy/AdvReac Type Severity Reaction Status Date / Time hydrocodone bitartrate Allergy Itching Unverified 02/25/21 13:45 [From Vicodin] Physical Examination Osteopathic Statement: *. No significant issues noted on an osteopathic structural exam other than those noted in the History and Physical/Consult. AOX3 NAD, non septic, C collar in place TTP about the neck, T and L spine midline TTP about the right wrist with obvious deformity. There is small poke hole on the ulnar side of the wrist and distal radius due to fracture puncture likely. Pain with motion of any joint at this time but able to move relatively well NV intact distally UE and LE b/l Neg hoffmans Neg clonus Neg babinski SILT C5-T1 and L2-S1 b/l 2/4 DTR all 2/4 pulses all Compartment soft and compressive, right wrist is swollen and taut, but no CS. CNII-XII grossly intact Results XR show comminuted, displaced, distal radius fracture with intraarticular extension. There is associated ulnar styloid fracture CT of C spine shows no acute fracture or dislocation there is spondylosis through the C spine noted. Pt states previous surgery in his neck but no hardware evident. Mild to moderate stenosis noted through neck. OC and C1-[address] of ABD pelvis pending. - Labs Labs: Abnormal Lab Results - Last 24 Hours (Table) 02/14/22 02/14/22 02/14/22 Range/Units 11:51 11:54 11:54 RBC 4.08 L (4.30-5.90) m/uL Hgb 12.7 L (13.0-17.5) gm/dL Hct 37.7 L (39.0-53.0) % Lymphocytes # 0.8 L (1.0-4.8) k/uL Sodium 135 L (137-145) mmol/L Glucose 138 H (74-99) mg/dL POC Glucose (mg/dL) 130 H (70-110) mg/dL H & H 02/14/22 Range/Units 11:54 Hgb 12.7 L (13.0-17.5) gm/dL Hct 37.7 L (39.0-53.0) % Coagulation 02/14/22 Range/Units 11:54 INR 1.0 (<1.2) Result Diagrams: 02/14/22 11:54 02/14/22 11:54 Assessment and Plan Assessment: 71 yo male s/p fall from ladder Grade I Open distal radius fracture, comminuted, intraarticular Neck pain and Lumbar pain after fall 5 ft Fall from ladder Plan: -NPO -Pain control -ABX given, tetanus updated -NWB RUE. Plan for urgent ORIF with w/o right distal radius. Discussed with pt and family. They are questioning wanting to stay in for this vs going to another facility. I discussed with them that this is a more urgent matter given the open fracture status. They understand but want to discuss it. Would plan on ORIF toay 02/14/22 to follow.
--- NOTE | 2022-02-14 14:02 | CT ---
EXAMINATION TYPE: CT abdomen pelvis wo con DATE OF EXAM: 02/14/2022 COMPARISON: 04/27/2021 HISTORY: Trauma CT DLP: 1437.4 mGycm Automated exposure control for dose reduction was used. TECHNIQUE: Helical acquisition of images was performed from the lung bases through the pelvis. FINDINGS: The lung bases are clear. There is a tiny gallstone but there is no biliary ductal dilatation. There is no organomegaly involving the liver, spleen or adrenal glands. A large pseudocyst of the pond creas is again identified. There are no renal calcifications or hydronephrosis. There is a stable 4.2 cm infrarenal abdominal aortic aneurysm. The bowel loops are normal in caliber and there is no evidence of obstruction. There is no free intraperitoneal air or fluid. There is no pelvic mass or adenopathy. There are postsurgical changes involving the left pelvis and lower lumbar spine otherwise the osseous structures are intact. IMPRESSION: 1. No evidence of acute trauma. 2. Stable large pseudocyst of the pancreas. 3. Stable abdominal aortic aneurysm. 4. Postsurgical changes within the pelvis and lower lumbar spine.
[2022-02-14] MEDS ORDERED: SODIUM CHLORIDE 0.9% 1,000 ML IV ONE (14:48)
--- NOTE | 2022-02-14 14:59 | P.PN ---
Progress Note - Text Progress Note Date: 02/14/22 Orthopedic Surgery Risk Review Jordi Adhikari is a 71 yo RHD male presenting for evaluation of sudden onset Right wrist pain, neck pain, back pain and general pain due to fall off ladder today. He was Trauma activation and was worked up in ED. It was my pleasure to have seen and examined Jordi Adhikari. In our visit today we have had a chance to go over subjective complaints, p hysical examination findings and treatments including the natural course history without intervention and various interventional options. His imaging demonstrates Right distal radius fracture, displaced, comminuted, intraarticular . On physical exam, Jordi Adhikari demonstrates pain with motion of right wrist as well as poke hole open wound on the ulnar aspect of the wrist, which is NV intact at this time. I have explained to the patient that this fracture needs stabilization. Based on the patients imaging, physical exam, and the rapid progression and disabling nature of her symptoms, at this time I recommend surgery in the form or a: Irrigation and debridement with right distal radius open reduction and internal fixation I discussed the risk and benefits of this procedure at length with Jordi Adhikari and his and daughter in the room. Questions were invited and answered, and the patient wishes to proceed as outlined below. Currently, I am recommendin. Irrigation and debridement with right distal radius open reduction and internal fixation 2. Review of surgical risks and benefits as well as an educational packet on the proposed surgical procedure. Risks: All surgical procedures come with inherent risks, including those related to positioning, anesthesia, intraoperative findings, and postoperative complications. It is important to understand that surgery does not come with any guarantee of a successful outcome as complications and adverse events are always possible. The patient was given a handout discussing the surgical procedure and risks associated with the intervention, both of which were discussed with the patient. These risks include but are not limited to the following: - Experiencing same, different or even worse symptoms compared to before surgery. - Requiring further surgery or other forms of treatment presently or at some time in the future . - On an extreme but fortunately relatively rare basis severe complication such as blindness, stroke, heart attack, temporary and/or permanent nerve injury, paralysis, coma, or may occur, sometimes without known explanation. - Surgical complications may include but are not limited to risk of infection, fluid accumulation in the surgical dissection site, including a seroma or hematoma, that requires additional surgery, wound drainage, bleeding, new numbness or weakness, vision changes/loss, spinal fluid leakage, non-healing and/or infected incision, headaches, difficulty or inability to swallow, hoarseness, hemopneumothorax, pneumothorax, injury to nerves, spinal cord, blood vessels, lymphatics or other vital organs (i.e., bowel injury, injury to the great vessels); heterotopic bone formation; complications related to the hardware such as screws, rods, including misplaced hardware, device failure, hardware fracture/breakage, or hardware loosening; retained surgical instrumentations or devices and the need for further surgery. - Medical risks of the planned surgery include but are not limited to generalized Infections to the whole body or local areas outside of the surgical site (sepsis), heart attack, bleeding, anaphylaxis, meningitis, seizure, epilepsy, hearing loss, burn casiano, laceration of the head or other areas of the body, bruising, hypersensitivity of the skin, bladder over distension; allergic reaction; shoulder injury related to positioning; fat, blood and air clots to other areas of the body like heart, lungs, brain; failure of internal organs such as lungs, kidneys, liver and excessive bleeding. If blood transfusions are necessary, note that transfusions may cause intolerance reactions such as anaphylaxis or other complex reactions. Despite best efforts, the results of surgery might not heal in terms of bone, soft tissues such as skin, fascia, ligaments, and joints. [facility] has multiple operating rooms with single and overlapping rooms running daily. They currently function under the required guidelines as produced by the [facility] with regards to the overlapping rooms and will continue to comply with changes to this policy as they occur. The requirements include and are complied with as follows: (1) the critical portions of the overlapping rooms will not occur at the same time, (2) the attending physician will be physically present during the critical portions of the procedure and immediately available during the entire case, and (3) a back-up attending is designated should the primary attending not be immediately available. The patient has had a chance to review all the listed information, has been given print outs detailing this information, and has had all his/her questions answered to their satisfaction. It was my pleasure to have seen and examined Jordi Adhikari. In our visit today we have had a chance to go over my understanding of our patient's current condition, the natural course history without intervention and various interventional options. Questions were invited and answered, and the patient wishes to proceed as outlined above. I have seen and examined the patient for 25 minutes and we have spent more than 50% of the time in repeat and detailed counseling about the patient's condition, its natural course history with out and as much as can be predicted with surgery and re-review of various surgical treatment options. In conclusion, Jordi Adhikari and his and daughter in the room requested we proceed with the above suggested surgery and are willing to accept risks and limitations of the suggested surgery as nature of the disease process and our best attempts at treatment for the condition. Thank you again for allowing us to be part of your patient's care. Please don't hesitate to contact me if you have any further questions. Signed and authenticated by: Marco Smith [facility] [address] [facility], [address] [address]
[2022-02-14] MEDS ORDERED: LACTATED RINGERS 1,000 ML IV ONE ×2 (15:30)
[2022-02-14] MEDS ORDERED: SODIUM CHLORIDE 0.9% 100 ML BAG ONE (15:49)
[2022-02-14] MEDS ORDERED: LIDOCAINE 2% INJ 20 MG/ML (2 ML VIAL) ONE (15:49)
[2022-02-14] MEDS ORDERED: DEXAMETHASONE SOD PHOSPHATE 4 MG/ML 1 ML VIAL ONE (15:49)
[2022-02-14] MEDS ORDERED: SUCCINYLCHOLINE CHLORIDE 200 MG/10 ML VIAL IV ONE (15:49)
[2022-02-14] MEDS ORDERED: MIDAZOLAM 2 MG/2 ML VIAL ONE (15:49)
[2022-02-14] MEDS ORDERED: fentaNYL (PF) 50 MCG/ML 2 ML AMP ONE (15:49)
[2022-02-14] MEDS ORDERED: ePHEDrine 50 MG/ML 1 ML VIAL ONE (15:49)
[2022-02-14] MEDS ORDERED: ceFAZolin 1,000 MG VIAL ONE (15:49)
[2022-02-14] MEDS ORDERED: ROPIVACAINE 5 MG/ML 30 ML VIAL ONE (15:49)
[2022-02-14] MEDS ORDERED: PROPOFOL 10 MG/ML 20 ML VIAL IV ONE (15:49)
[2022-02-14] MEDS ORDERED: IV FLUID CONTINUATION 1,000 ML IV ONE (15:49)
--- NOTE | 2022-02-14 15:53 | P.ANPRN ---
Procedure Note - Anesthesia - Nerve Block Performed Right Axillary Single Time Out Performed: Yes Date of Procedure: 02/14/22 Procedure Start Time: 15:35 Procedure Stop Time: 15:45 Location of Patient: PreOp Indication: Acute Post-Operative Pain, Requested by Surgeon Sedation Type: Sedate with meaningful contact maintained Preparation: Sterile Prep Position: Supine Catheter: None Needle Types: Pajunk Needle Gauge: 21 Ultrasound used to visualize needle placement: Yes Ultrasound used to observe medication spread: Yes Injectate: 0.5% Ropivacaine (see comment for volume) (30 ml + decadron 4 mg) Blood Aspirated: No Pain Paresthesia on Injection Noted: No Resistance on Injection: Normal Image Stored and Saved: Yes Events: Uneventful and Well Tolerated
[2022-02-14] MEDS ORDERED: MORPHINE SULFATE 2 MG/ML SYRINGE IV PRN ×2 (17:31)
[2022-02-14] MEDS ORDERED: SENNOSIDES-DOCUSATE SODIUM 1 EACH TAB PO PRN (17:31)
[2022-02-14] MEDS ORDERED: HYDROcodone/APAP 5-325MG 1 EACH TAB PO PRN (17:31)
[2022-02-14] MEDS ORDERED: HYDROmorphone 1 MG/ML 1 ML SYRINGE IVP PRN (17:33)
[2022-02-14] MEDS ORDERED: HYDROmorphone 0.5 MG/0.5 ML SYRINGE IVP PRN (17:33)
[2022-02-14] MEDS ORDERED: ONDANSETRON 4 MG/2 ML VIAL IVP ONE (17:39)
[2022-02-14] MEDS: oxyCODONE-APAP 10-325MG 1 EACH TAB PO SCH (20:33)
[2022-02-14] MEDS: APIXABAN 5 MG TAB PO SCH (20:34)
[2022-02-14] MEDS: GABAPENTIN 300 MG CAP PO SCH (22:26)
[2022-02-15] MEDS: oxyCODONE-APAP 10-325MG 1 EACH TAB PO SCH ×7 (00:21→22:19)
--- NOTE | 2022-02-15 08:30 | P.PN ---
Subjective Progress Note Date: 02/15/22 Principal diagnosis: Neck pain, right wrist pain Patient seen and examined at bedside. Patient is resting in bed and states that he did not sleep well at all. Patient states pain is managed on current regimen. Splint is present on right wrist, clean dry and intact. Patient d enies any numbness or tingling to right upper extremity. Patient is able to wiggle digits of right hand. He may have a sling for comfort. Patient is resting with soft cervical collar in place. Mr. Adhikari is requesting discharge, this may be appropriate after PT/OT. Patient denies any fever/chills, shortness of breath, or chest pain. Objective - Vital Signs Vital signs: Vital Signs Temp 97.9 F 02/15/22 05:00 Pulse 64 02/15/22 05:00 Resp 18 02/14/22 18:30 BP 124/67 02/15/22 05:00 Pulse Ox 92 L 02/15/22 05:00 FiO2 Intake & Output 02/14/22 02/15/22 02/15/22 18:59 06:59 18:59 Intake Total 1000 950 Output Total 425 Balance 575 950 Weight 85.729 kg 85.729 kg Intake: IV 1000 Intake, IV Titration 950 Amount Sodium Chloride 0.9% 1, 900 000 ml @ 75 mls/hr IV . [id number] ONE Rx#:[id number] ceFAZolin 2 gm In Sodium 50 Chloride 0.9% 50 ml @ 100 mls/hr IVPB Q8HR [facility] Rx# :[id number] Output: Urine 350 Estimated Blood Loss 75 Other: Voiding Method Bedside Commode Urinal # Voids 1 - Exam Physical Examination General: The patient is awake and alert, in no acute distress Skin: Skin is warm and dry with no obvious rashes or lesions. Hairy patches absent, no dorsal skin dimples, no cafe au lait spots, Surgical incision to right wrist, splint is CDI. Eye: Pupils are equal, round and reactive to light, extra-ocular movements are intact; there is normal conjunctiva bilaterally. Neck: The neck is supple, there is slight tenderness and ROM limited and stiff due to fall from ladder Cardiovascular: There is a regular rate and rhythm. No murmur, rub or gallop is appreciated. Respiratory: Lungs are clear to auscultation, respirations are non-labored, breath sounds are equal. Gastrointestinal: Soft, non-distended, non-tender abdomen . Back: There is no tenderness to palpation in the midline, paralumbar, parathoracic or buttocks region. There is no obvious deformity . Musculoskeletal: ROM limited secondary to pain and stiffness from surgical procedure and Fall from ladder. Shoulder abduction 5/5, elbow flexors 5/5, left wrist dorsiflexors 5/5, right wrist LINDA due to splint, finger abductor 5/5, automated logistics specialist 5/5, hip flexor 5/5, knee flexor 5/5, ankle dorsiflexor 5/5, ankle pl antarflexion 5/5 and extensor hallucis 5/5. Neurological: CN 2-12 intact. There are no obvious motor or sensory deficits. Movement and coordination equal and intact. Sensory exam to light touch intact C5-T1 and intact from L2-S1. Reflexes 2/4 in bilateral upper and lower extremities. Negative Hoffmans, babinski, and clonus signs. Psychiatric: Cooperative, appropriate mood & affect, normal judgment. - Labs CBC & Chem 7: 02/14/22 11:54 02/14/22 11:54 Labs: Abnormal Lab Results - Last 24 Hours (Table) 02/14/22 02/14/22 02/14/22 Range/Units 11:51 11:54 11:54 RBC 4.08 L (4.30-5.90) m/uL Hgb 12.7 L (13.0-17.5) gm/dL Hct 37.7 L (39.0-53.0) % Lymphocytes # 0.8 L (1.0-4.8) k/uL Sodium 135 L (137-145) mmol/L Glucose 138 H (74-99) mg/dL POC Glucose (mg/dL) 130 H (70-110) mg/dL Urine Opiates Screen (NotDetected) Ur Oxycodone Screen (NotDetected) U Benzodiazepines Scrn (NotDetected) 02/14/22 Range/Units 12:44 RBC (4.30-5.90) m/uL Hgb (13.0-17.5) gm/dL Hct (39.0-53.0) % Lymphocytes # (1.0-4.8) k/uL Sodium (137-145) mmol/L Glucose (74-99) mg/dL POC Glucose (mg/dL) (70-110) mg/dL Urine Opiates Screen Detected H (NotDetected) Ur Oxycodone Screen Detected H (NotDetected) U Benzodiazepines Scrn Detected H (NotDetected) Assessment and Plan Assessment: s/p Post Op Day 1: Irrigation and debridement with right distal radius open reduction and internal fixation Plan: Plan: -Appreciate senior professional services consultant and team management. -Activity: Ambulate QID, OOB all meals, up and about. NWB for right upper extremity -Daily PT/OT, increase ambulation strength and balance. -Soft collar when up and about, not needed in bed or chair -Pain control: Adequate at this time -Meds: reviewed -GI ppx: senna, Miralax -DVT PPX: heparin, on discharge recommend aspirin 81mg daily x 4 weeks. -Hygiene: Shower today. Maintain dressing clean and dry. Keep Splint CDI. -Encourage IS 10x/hr -Dispo: Anticipate discharge home today pending PT. *I reviewed and discussed this case with my attending Dr. Contreras, whom has reviewed this chart and films and is in agreement with assessment and plan of care as outlined above. I have personally seen and examined the patient, performed the documentation and the assessment and plan as written. Number of minutes spent on the visit: 20m.
[2022-02-15] MEDS: GABAPENTIN 300 MG CAP PO SCH ×3 (08:55→22:18)
[2022-02-15] MEDS: APIXABAN 5 MG TAB PO SCH ×2 (08:56→22:19)
--- NOTE | 2022-02-15 09:37 | P.OP ---
Date of Procedure: 02/14/22 Preoperative Diagnosis: 1. Right Grade II open distal radius fracture 2. Blunt trauma 3. S/p fall from ladder 7 ft Postoperative Diagnosis: 1. Right Grade II open distal radius fracture 2. Blunt trauma 3. S/p fall from ladder 7 ft Procedure(s) Performed: 1. Open treatment distal radius fracture with manipulation (43421) 2. Irrigation and debridment skin, soft tissue, muscle and bone right wrist for open fracture 7x7x3 cm using the following (70518) -skin knife to debride soft tissue and skin -Curette to debride bone and muscle -Irrigation to remove foreign bodies and dirt 3. Short arm volar splint application RUE (30580) Implants: Arthrex standard Right distal radius locking plate Anesthesia: MAC, regional Surgeon: Marco Contreras Band Master #1: Harish Resendiz (Was present and assisted in all aspects of the case, positioniing, opeining, hardware, reduction, closure, dressing and splint) Estimated Blood Loss (ml): 75 IV fluids (ml): 1,000 Urine output (ml): 0 Pathology: none sent Condition: stable Disposition: PACU Indications for Procedure: 71 yo male presented to ED as trauma activation after fall from ladder 5-7 feet. He was cleaning the house and gutters and doing other work when he lost his balance and fell back onto his back, neck and right wrist. He c/o MCGEE and neck pain as well as back and buttock pain. He c/o right wrist pain and was found to have a right distal radius fracture that was open on the ulnar side. He stated some tingling in his fingers. He has had extensive back surgery in the past as well. for which he takes pain medications at home. He denied any LOC with the fall but does state BHT. We discussed different options and due to the extent of the fracture as well as the open status we discussed urgent surgical debridme nt and fixation. The family and the patient agreed. Description of Procedure: The patient was seen and examined in the preoperative area. All preoperative protocols were followed. Informed consent was obtained risks and benefits of the procedure were discussed at length. Risks including bleeding infection damage to the surrounding tissue and risk of reoperation were discussed with the patient. Risk of anesthesia up to and including was a discussed with the patient. These are outlined in the risk reviewed. They were willing to accept these risks and all of the risks of surgery. The patient was given a weight- based dose of antibiotics in the form of Ancef 2 g. The patient was seen and evaluated by the anesthesia team who deemed them fit for surgery. The site was marked, the patient was willing to proceed with the procedure. The patient was transferred to the operative suite by the Department of anesthesia. There were then drifted off to sleep by the department of anesthesia and regional anesthesia with LMA anesthesia was used. Once adequate anesthesia had been obtained the patient was carefully transferred to the operative bed. All bony prominences were padded accordingly. SCDs were placed on the nonoperative lower extremities. Arms were well padded. Right arm was exposed and placed on an arm board a well-padded tourniquet was placed around the right upper arm. 10:15 was placed on this. Preoperative briefing was done with the operative team and everyone was ready for the procedure to start. The patients right arm was then prepped and draped in the normal sterile fashion. Timeout was then performed and all parties in agreement with the procedure to be performed. The arm was exsanguinated tourniquet was increased to 250 mmHg. Standard volar Jeremias approach to the wrist was accomplished. Fractures identified there were multiple different pieces was extremely unstable. The styloid was completely dissociated as well as intra-articular pieces. The shaft was completely dissociated from these pieces. The pronator was cleaned off of this area and the fracture portions mobilized and irrigated. We then placed a styloid pin along with a transverse pin after reduction to hold the reduction. We then placed a [id number] clamp on the styloid to bring it into position. X-ray images showed good reduction of plate was then selected and placed and pinned into position once it was in good position on AP and lateral a shaft screw was drilled in the variable hole to allow for any distal or proximal migration needed once in good position the sac shaft screw was then tightened into place. We then drilled a distal screw hole and a nonlocking distal screw was placed in order to suck the plate to the bone and help with further reduction of the fracture. Once this was accomplished the locking guide was used to drill the distal locking row. We then replaced that nonlocking screw with a locking peg. We then drilled the styloid and placed locking pegs along with the proximal locking row. Once this was accomplished we drilled the remainder of the shaft screws measured and placed the screws. The pins were then removed and the clamp was removed and the fracture remained stable. The wrist was taken through a range of motion and remained stable. Final images confirmed good fracture reduction with good hardware placement and stable fracture. Then turned our attention to the ulnar side of the wrist where the ulnar styloid had come through the skin skin incision was made over this area and debridement taken out with the foreign bodies removed are removed and irrigation with copious amounts of low flow sterile saline. Curet was then used to scrape bone as well as soft tissue and knife used to excise any necrotic tissue. We then thoroughly irrigated the wound as well as the open portion of the fracture with normal sterile saline low flow 3 L. Once this was accomplished to proceed with closure the tourniquet was released at 60 minutes and hemostasis was performed. There were no large injuries. We then closed the main incision with 3-0 Vicryl followed by a running nylon stitch. We then closed the open wound with simple nylon sutures. The wound was then cleaned and dressed sterilely with Adaptic 4 x 4 ABDs the patient was placed in a well-padded well molded volar splint and this was overwrapped with an Grabiel wrap. The patient was then transferred back to their hospital bed. There were awakened by department of anesthesia having tolerated the procedure very well with no complications. The patient was then transported to the postoperative care unit in stable condition.
[2022-02-15] MEDS ORDERED: oxyCODONE-APAP 10-325MG 1 EACH TAB PO PRN (12:12)
[2022-02-15] MEDS ORDERED: traZODone HCL 100 MG TAB PO PRN (12:12)
[2022-02-15] MEDS: CYCLOBENZAPRINE 5 MG TAB PO PRN (12:18)
[2022-02-15] MEDS: PANTOPRAZOLE 40 MG TABLET PO SCH (12:18)
--- NOTE | 2022-02-15 12:21 | P.CONS ---
History of Present Illness - Reason for Consult Consult date: 02/15/22 - Chief Complaint Medical management - History of Present Illness 71-year-old man with medical history of hypertension, diabetes, chronic pain with narcotic dependence, hyperlipidemia presented with mechanical fall resulting in right humerus fracture. Patient was taken to the operating room and had open reduction internal fixation. Medicine was consulted by orthopedic surgery service for medical management. Patient is doing well following his procedure, his pain is well-controlled. He has not had a bowel movement, but has been passing gas. Has a good appetite. No acute complaints at this time. He denies fevers, chills, nausea, vomiting, chest pain, palpitations, syncope, precinct be, cough, dyspnea, abdominal pain, diarrhea, dysuria, dyschezia, numbness/weakness of extremities. Upon my evaluation, patient is afebrile, hemodynamically stable. CBC shows mild anemia down to 12.7, otherwise unremarkable. Chemistries are unremarkable. Liver function tests are unremarkable. Troponin was less than 0.012. Urine tox screen is positive for opiates, oxycodone, benzodiazepines. Serum alcohol level is less than 10. Head/cervical spine CT shows no acute fracture or dislocation. Pelvis x-ray shows postsurgical changes of the lower lumbar spine and pelvis without any acute fractures. Chest x-ray does not demonstrate any acute process. Abdomen/pelvic CT does not show any evidence of acute trauma. All Systems reviewed and pertinent positives and negatives noted in HPI, all other symptoms are negative Gen: in no apparent distress, resting comfortably in bed Eyes: PERRL, no scleral injection or icterus HENT: normocephalic, atraumatic, good hearing acuity, moist mucous membranes Neck: no tracheal deviation, full range of motion Resp: good air exchange, breathing comfortably with no accessory muscle use, no tactile fremitus CVS: good distal perfusion x 4, no pitting edema GI: soft, NTTP, ND, no hepatosplenomegaly : no suprapubic tenderness, no CVAT, ward catheter not present MSK: no clubbing, no cyanosis, no noted contractures of extremities, right arm in soft cast Skin: no noted rashes, petechiae; temperature of skin is appropriate Neuro: moving all extremities without signs of weakness, CN II-XII intact Psych: cooperative, euthymic mood, insight and judgment intact Labs and imaging as above Assessment/plan: Hypertension Diabetes type 2 Hyperlipidemia Iron deficiency anemia -Home medications were reviewed and reconciled Chronic pain with narcotic dependence Right wrist fracture -Care per primary team -Pain control -Bowel regimen Patient is full code Past Medical History Past Medical History: Chest Pain / Angina, GERD/Reflux, Hyperlipidemia, Hypertension, Prostate Disorder Additional Past Medical History / Comment(s): blood clot in splenic vein, pancreatitis, constipation, cyst on pancreas History of Any Multi-Drug Resistant Organisms: None Reported Past Surgical History: Back Surgery, Tonsillectomy Additional Past Surgical History / Comment(s): back surgery x 5(Fusion,laminectomy,cage) Past Anesthesia/Blood Transfusion Reactions: Motion Sickness Past Psychological History: No Psychological Hx Reported Smoking Status: Former smoker Past Alcohol Use History: None Reported Additional Past Alcohol Use History / Comment(s): quit smoking 30 yrs ago, smoked for 35 yrs Past Drug Use History: None Reported - Past Family History Mother Family Medical History: No Reported History Medications and Allergies Home Medications Medication Instructions Recorded Confirmed Type Apixaban [Eliquis] 5 mg PO BID 10/02/20 02/14/22 History Atorvastatin [Lipitor] 80 mg PO HS 10/02/20 02/14/22 History Cholecalciferol [Vitamin D3 (25 25 mcg PO DAILY 10/02/20 02/14/22 History Mcg = 1000 Iu)] Ferrous Sulfate [Iron (65 MG 325 mg PO DAILY 10/02/20 02/14/22 History Elemental)] Sennosides [Senna] 8.6 mg PO HS 10/02/20 02/14/22 History diazePAM [Valium] 10 mg PO HS 10/02/20 02/14/22 History oxyCODONE-APAP 10-325MG [Percocet 1 tab PO QID PRN 10/02/20 02/14/22 History 10-325 mg] traZODone HCL 150 mg PO HS PRN 10/02/20 02/14/22 History Omeprazole [PriLOSEC] 20 mg PO DAILY 02/25/21 02/14/22 History metFORMIN HCL [Glucophage] 500 mg PO DAILY 02/14/22 02/14/22 History Cyclobenzaprine [Flexeril] 5 mg PO TID #90 tablet 02/15/22 Rx Gabapentin 300 mg PO TID #90 cap 02/15/22 Rx cefaDROXiL [Duricef] 500 mg PO Q12HR 3 Days #6 cap 02/15/22 Rx oxyCODONE HCL [OxyIR] 5 mg PO Q4-6H PRN #42 tab 02/15/22 Rx Allergies Allergy/AdvReac Type Severity Reaction Status Date / Time hydrocodone bitartrate Allergy Rash/Hives Unverified 02/14/22 15:08 [From Vicodin] Physical Exam Osteopathic Statement: *. No significant issues noted on an osteopathic structural exam other than those noted in the History and Physical/Consult. Vitals: Vital Signs Temp Pulse Resp BP Pulse Ox 02/15/22 12:00 97.9 F 62 18 151/88 96 02/15/22 05:00 97.9 F 64 124/67 92 L 02/14/22 23:11 66 151/85 02/14/22 20:15 71 156/83 91 L 02/14/22 19:45 72 155/79 91 L 02/14/22 19:15 66 150/83 90 L 02/14/22 19:00 73 171/92 93 L 02/14/22 18:45 61 161/92 95 02/14/22 18:30 97.6 F 59 L 18 158/96 95 02/14/22 18:00 71 16 148/84 96 02/14/22 17:45 71 16 140/73 96 02/14/22 17:30 97.4 F L 71 16 150/81 96 Intake and Output 02/14/22 02/15/22 02/15/22 22:59 06:59 14:59 Intake Total 1000 950 296 Output Total 425 200 Balance 575 950 96 Intake: IV 1000 Intake, IV Titration 950 Amount Sodium Chloride 0.9% 1, 900 000 ml @ 75 mls/hr IV . [id number] ONE Rx#:[id number] ceFAZolin 2 gm In Sodium 50 Chloride 0.9% 50 ml @ 100 mls/hr IVPB Q8HR [facility] Rx# :[id number] Oral 296 Output: Urine 350 200 Estimated Blood Loss 75 Other: Voiding Method Bedside Commode Toilet Urinal Urinal # Voids 1 Weight 85.729 kg Results CBC & Chem 7: 02/14/22 11:54 02/14/22 11:54 Labs: Abnormal Lab Results - Last 24 Hours (Table) 02/14/22 02/14/22 02/14/22 Range/Units 11:54 11:54 12:44 RBC 4.08 L (4.30-5.90) m/uL Hgb 12.7 L (13.0-17.5) gm/dL Hct 37.7 L (39.0-53.0) % Lymphocytes # 0.8 L (1.0-4.8) k/uL Sodium 135 L (137-145) mmol/L Glucose 138 H (74-99) mg/dL Urine Opiates Screen Detected H (NotDetected) Ur Oxycodone Screen Detected H (NotDetected) U Benzodiazepines Scrn Detected H (NotDetected)
[2022-02-15] MEDS ORDERED: ONDANSETRON 4 MG/2 ML VIAL IVP PRN (12:41)
--- NOTE | 2022-02-15 14:52 | P.GSCN ---
History of Present Illness Consult date: 02/15/22 History of present illness: Patient seen and examined at 11 AM today CHIEF COMPLAINT: Fall HISTORY OF PRESENT ILLNESS: This is a 71-year-old male who fell from a 5 foot ladder while taking a tarp off of his disease though. He is on Eliquis at home. He did report hitting his head but no loss of consciousness. He did fall and hit his right wrist with evidence of a distal radial ulnar fracture. Patient admitted to orthopedic service and had open reduction internal fixation with irrigation and debridement of the right wrist fracture. Patient does report pain in that right wrist. He is complaining of a headache. His neck is also painful. CAT scan of the head and neck were negative for any acute findings. Patient is complaining of nausea and his acid reflux acting up. Requesting that his Prilosec is restarted. He is afebrile. White count 7.8. He is tolerating regular diet. He is on room air. Patient denies any abdominal pain. Denies any new aches or pains. PAST MEDICAL HISTORY: See list. PAST SURGICAL HISTORY: See list. MEDICATIONS: See list. ALLERGIES: See list. SOCIAL HISTORY: No illicit drug use. REVIEW OF SYSTEMS: CONSTITUTIONAL: Denies fever or chills. HEENT: Denies blurred vision, vision changes, or eye pain. Denies hemoptysis CARDIOVASCULAR: Denies chest pain or pressure. RESPIRATORY: No shortness of breath. GASTROINTESTINAL: See HPI for pertinent findings HEMATOLOGIC: Denies bleeding disorders. GENITOURINARY: Denies any blood in urine or increased urinary frequency. SKIN: Denies pruitis. Denies rash. PHYSICAL EXAM: VITAL SIGNS: Reviewed GENERAL: Well-developed in no acute distress. HEENT: No sclera icterus. Extraocular movements grossly intact. Moist buccal mucosa. Head is normocephalic. No bruising noted. No nasal drainage. Neck is in c-collar for support ABDOMEN: Soft. Nondistended. Nontender NEUROLOGIC: Alert and oriented. Cranial nerves II through XII grossly intact. Extremities: Patient is able to move all 4 extremities. Right arm is in place cast. Fingers are swollen. Patient does have full sensation in all 5 fingers. LABORATORY DATA: WBC 7.8 Hgb 12.7 platelets 373 INR 1.0 Sodium 135 potassium 4.5 creatinine 0.91 Glucose 138 LFTs normal troponin negative Urine drug screen positive for opiates, oxycodone and benzodiazepine IMAGING: Computed tomography scan abdomen and pelvis no evidence of acute trauma. Stable large pseudocyst of the pancreas. Stable abdominal aortic aneurysm. Postsurgical changes within the pelvis and lower lumbar spine. Computed tomography scan of the brain and cervical spine no acute fracture or dislocation of the cervical spine. No acute intracranial hemorrhage as affect or midline shift Chest x-ray no acute process Pelvic x-ray no acute process X-ray right wrist fracture ASSESSMENT: 1. Status post fall from about 5 feet with trauma to the right wrist 2. Distal radial and ulnar fracture status post orthopedic surgery 3. Neck strain. 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 Signing provider agrees with the documented findings, assessment, and plan of care. Past Medical History Past Medical History: Chest Pain / Angina, GERD/Reflux, Hyperlipidemia, Hypertension, Prostate Disorder Additional Past Medical History / Comment(s): blood clot in splenic vein, pancreatitis, constipation, cyst on pancreas History of Any Multi-Drug Resistant Organisms: None Reported Past Surgical History: Back Surgery, Tonsillectomy Additional Past Surgical History / Comment(s): back surgery x 5(Fusion,laminectomy,cage) Past Anesthesia/Blood Transfusion Reactions: Motion Sickness Past Psychological History: No Psychological Hx Reported Smoking Status: Former smoker Past Alcohol Use History: None Reported Additional Past Alcohol Use History / Comment(s): quit smoking 30 yrs ago, smoked for 35 yrs Past Drug Use History: None Reported - Past Family History Mother Family Medical History: No Reported History Medications and Allergies Home Medications Medication Instructions Recorded Confirmed Type Apixaban [Eliquis] 5 mg PO BID 10/02/20 02/14/22 History Atorvastatin [Lipitor] 80 mg PO HS 10/02/20 02/14/22 History Cholecalciferol [Vitamin D3 (25 25 mcg PO DAILY 10/02/20 02/14/22 History Mcg = 1000 Iu)] Ferrous Sulfate [Iron (65 MG 325 mg PO DAILY 10/02/20 02/14/22 History Elemental)] Sennosides [Senna] 8.6 mg PO HS 10/02/20 02/14/22 History diazePAM [Valium] 10 mg PO HS 10/02/20 02/14/22 History oxyCODONE-APAP 10-325MG [Percocet 1 tab PO QID PRN 10/02/20 02/14/22 History 10-325 mg] traZODone HCL 150 mg PO HS PRN 10/02/20 02/14/22 History Omeprazole [PriLOSEC] 20 mg PO DAILY 02/25/21 02/14/22 History metFORMIN HCL [Glucophage] 500 mg PO DAILY 02/14/22 02/14/22 History Cyclobenzaprine [Flexeril] 5 mg PO TID #90 tablet 02/15/22 Rx Gabapentin 300 mg PO TID #90 cap 02/15/22 Rx cefaDROXiL [Duricef] 500 mg PO Q12HR 3 Days #6 cap 02/15/22 Rx oxyCODONE HCL [OxyIR] 5 mg PO Q4-6H PRN #42 tab 02/15/22 Rx Allergies Allergy/AdvReac Type Severity Reaction Status Date / Time hydrocodone bitartrate Allergy Rash/Hives Unverified 02/14/22 15:08 [From Vicodin] Surgical - Exam Vital Signs Temp Pulse Resp BP Pulse Ox 98 F 60 20 163/109 100 02/14/22 11:43 02/14/22 11:43 02/14/22 11:43 02/14/22 11:43 02/14/22 11:43 Results - Labs 02/14/22 11:54 02/14/22 11:54 Abnormal Lab Results - Last 24 Hours (Table) 02/14/22 02/14/22 02/14/22 Range/Units 11:54 11:54 12:44 RBC 4.08 L (4.30-5.90) m/uL Hgb 12.7 L (13.0-17.5) gm/dL Hct 37.7 L (39.0-53.0) % Lymphocytes # 0.8 L (1.0-4.8) k/uL Sodium 135 L (137-145) mmol/L Glucose 138 H (74-99) mg/dL Urine Opiates Screen Detected H (NotDetected) Ur Oxycodone Screen Detected H (NotDetected) U Benzodiazepines Scrn Detected H (NotDetected) Diabetes panel 02/14/22 Range/Units 11:54 Sodium 135 L (137-145) mmol/L Potassium 4.5 (3.5-5.1) mmol/L Chloride 101 (98-107) mmol/L Carbon Dioxide 22 (22-30) mmol/L BUN 16 (9-20) mg/dL Creatinine 0.91 (0.66-1.25) mg/dL Glucose 138 H (74-99) mg/dL Calcium 9.6 (8.4-10.2) mg/dL AST 30 (17-59) U/L ALT 27 (4-49) U/L Alkaline Phosphatase 89 (38-126) U/L Total Protein 6.5 (6.3-8.2) g/dL Albumin 4.4 (3.5-5.0) g/dL Calcium panel 02/14/22 Range/Units 11:54 Calcium 9.6 (8.4-10.2) mg/dL Albumin 4.4 (3.5-5.0) g/dL Pituitary panel 02/14/22 Range/Units 11:54 Sodium 135 L (137-145) mmol/L Potassium 4.5 (3.5-5.1) mmol/L Chloride 101 (98-107) mmol/L Carbon Dioxide 22 (22-30) mmol/L BUN 16 (9-20) mg/dL Creatinine 0.91 (0.66-1.25) mg/dL Glucose 138 H (74-99) mg/dL Calcium 9.6 (8.4-10.2) mg/dL Adrenal panel 02/14/22 Range/Units 11:54 Sodium 135 L (137-145) mmol/L Potassium 4.5 (3.5-5.1) mmol/L Chloride 101 (98-107) mmol/L Carbon Dioxide 22 (22-30) mmol/L BUN 16 (9-20) mg/dL Creatinine 0.91 (0.66-1.25) mg/dL Glucose 138 H (74-99) mg/dL Calcium 9.6 (8.4-10.2) mg/dL Total Bilirubin 0.5 (0.2-1.3) mg/dL AST 30 (17-59) U/L ALT 27 (4-49) U/L Alkaline Phosphatase 89 (38-126) U/L Total Protein 6.5 (6.3-8.2) g/dL Albumin 4.4 (3.5-5.0) g/dL
[2022-02-15] MEDS: KETOROLAC 15 MG/ML 1 ML VIAL IVP SCH ×3 (16:56→23:54)
[2022-02-15] MEDS ORDERED: SENNOSIDES 8.6 MG TAB PO SCH (21:00)
[2022-02-15] MEDS ORDERED: APIXABAN 5 MG TAB PO SCH (21:00)
[2022-02-15] MEDS ORDERED: ATORVASTATIN 80 MG TAB PO SCH (21:00)
[2022-02-15] MEDS ORDERED: diazePAM 5 MG TAB PO SCH (21:00)
[2022-02-16] MEDS: oxyCODONE-APAP 10-325MG 1 EACH TAB PO SCH ×2 (02:30→04:17)
[2022-02-16 04:49] VITALS: BP 130/78; PULSE 59; RESP 16; TEMP 97.8
[2022-02-16 07:51] LABS: Glucose,Whole Blood 130 mg/dL (70-110)
[2022-02-16] MEDS: KETOROLAC 15 MG/ML 1 ML VIAL IVP SCH (08:27)
[2022-02-16] MEDS: GABAPENTIN 300 MG CAP PO SCH (08:28)
[2022-02-16] MEDS: APIXABAN 5 MG TAB PO SCH (08:28)
[2022-02-16] MEDS: CYCLOBENZAPRINE 5 MG TAB PO PRN (08:28)
[2022-02-16] MEDS: PANTOPRAZOLE 40 MG TABLET PO SCH (08:28)
--- NOTE | 2022-02-16 08:34 | P.PN ---
Subjective Progress Note Date: 02/16/22 Principal diagnosis: Neck pain, right wrist pain Patient seen and examined at bedside. Patient is resting in bed. Patient states pain is managed on current regimen. Splint is present on right wrist, clean dry and intact. Patient denies any numbness or tingling to right upper extremity. Patient is able to wiggle digits of right hand, Sling has been ordered. Patient is resting with soft cervical collar in place. He reports ambulating independently within the room and restroom without difficulty. Patient denies any fever/chills, shortness of breath, or chest pain. Objective - Vital Signs Vital signs: Vital Signs Temp 97.8 F 02/16/22 04:48 Pulse 59 L 02/16/22 04:48 Resp 16 02/16/22 04:48 BP 130/78 02/16/22 04:48 Pulse Ox 94 L 02/16/22 04:48 FiO2 Intake & Output 02/15/22 02/16/22 02/16/22 18:59 06:59 18:59 Intake Total 888 50 Output Total 400 Balance 488 50 Intake: Intake, IV Titration 50 Amount ceFAZolin 2 gm In Sodium 50 Chloride 0.9% 50 ml @ 100 mls/hr IVPB Q8HR [facility] Rx# :[id number] Oral 888 Output: Urine 400 Other: Voiding Method Toilet Toilet Urinal Urinal - Exam Physical Examination General: The patient is awake and alert, in no acute distress Skin: Skin is warm and dry with no obvious rashes or lesions. Hairy patches absent, no dorsal skin dimples, no cafe au lait spots, Surgical incision to right wrist, splint is CDI. Eye: Pupils are equal, round and reactive to light, extra-ocular movements are intact; there is normal conjunctiva bilaterally. Neck: The neck is supple, there is slight tenderness and ROM limited and stiff due to fall from ladder Cardiovascular: There is a regular rate and rhythm. No murmur, rub or gallop is appreciated. Respiratory: Lungs are clear to auscultation, respirations are non-labored, breath sounds are equal. Gastrointestinal: Soft, non-distended, non-tender abdomen . Back: There is no tenderness to palpation in the midline, paralumbar, parathoracic or buttocks region. There is no obvious deformity . Musculoskeletal: ROM limited secondary to pain and stiffness from surgical procedure and Fall from ladder. Shoulder abduction 5/5, elbow flexors 5/5, left wrist dorsiflexors 5/5, right wrist LINDA due to splint, finger abductor 5/5, director occupational 5/5, hip flexor 5/5, knee flexor 5/5, ankle dorsiflexor 5/5, ankle plantarflexion 5/5 and extensor hallucis 5/5. Neurological: CN 2-12 intact. There are no obvious motor or sensory deficits. Movement and coordination equal and intact. Sensory exam to light touch intact C5-T1 and intact from L2-S1. Reflexes 2/4 in bilateral upper and lower extremities. Negative Hoffmans, babinski, and clonus signs. Psychiatric: Cooperative, appropriate mood & affect, normal judgment. 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 -Activity: Ambulate QID, OOB all meals, up and about. NWB for right upper extremity -Daily PT/OT, increase ambulation strength and balance. -Soft collar when up and about, not needed in bed or chair -Pain control: Adequate at this time -Meds: reviewed -GI ppx: senna, Miralax -DVT PPX: heparin, on discharge recommend aspirin 81mg daily x 4 weeks. -Hygiene: Shower today. Maintain dressing clean and dry. Keep Splint CDI. -Encourage IS 10x/hr -Dispo: Anticipate discharge home today. *I reviewed and discussed this case with my attending Dr. Contreras, whom has reviewed this chart and films and is in agreement with assessment and plan of care as outlined above. I have personally seen and examined the patient, performed the documentation and the assessment and plan as written. Number of minutes spent on the visit: 20m.
--- NOTE | 2022-02-16 08:42 | P.DS ---
Providers Date of admission: 02/14/22 14:48 Expected date of discharge: 02/16/22 Attending physician: Marco Contreras DO Consults: 02/14/22 14:48 Consult Physician Urgent Consulting Provider: Steven Martinez Consult Reason/Comments: Trauma Do you want consulting provider notified?: Yes Consult Physician Urgent Consulting Provider: Chuck Negrete Consult Reason/Comments: Medical management Do you want consulting provider notified?: Yes Primary care physician: Stated None Hospital Course: Hospital Course: The patient was evaluated preoperatively and found to have the diagnosis of Right Grade II open distal radius fracture. They underwent appropriate preoperative care and were willing to undergo the intended procedure. They underwent a successful Irrigation and debridement with right distal radius open reduction and internal fixation, were recovered appropriately and sent to the floor. While on the floor they worked with physical therapy, occupational therapy and nursing to enhance their recovery experience. Their pain was well controlled through their stay and they were started on appropriate medications, DVT ppx modalities, activity and dietary needs. Daily labs were monitored closely, and transfusions were only used when necessary. Medicine as well as other consulting services have made their input and have helped with our team approach and multidisciplinary care. PT milestones have been met and passed and they have made the recommendation of home for this patient and treating providers agree with this care path. The patient will be discharged home with appropriate medications, instructions and follow-up information and in stable condition. Patient Condition at Discharge: Good Plan - Discharge Summary Discharge Rx Participant: Yes New Discharge Prescriptions: New cefaDROXiL [Duricef] 500 mg PO Q12HR 3 Days #6 cap Cyclobenzaprine [Flexeril] 5 mg PO TID #90 tablet Gabapentin 300 mg PO TID #90 cap oxyCODONE HCL [OxyIR] 5 mg PO Q4-6H PRN #42 tab PRN Reason: Pain Continue Atorvastatin [Lipitor] 80 mg PO HS Apixaban [Eliquis] 5 mg PO BID Sennosides [Senna] 8.6 mg PO HS Omeprazole [PriLOSEC] 20 mg PO DAILY oxyCODONE-APAP 10-325MG [Percocet 10-325 mg] 1 tab PO QID PRN PRN Reason: Pain Ferrous Sulfate [Iron (65 MG Elemental)] 325 mg PO DAILY Cholecalciferol [Vitamin D3 (25 Mcg = 1000 Iu)] 25 mcg PO DAILY diazePAM [Valium] 10 mg PO HS traZODone HCL 150 mg PO HS PRN PRN Reason: Insomnia metFORMIN HCL [Glucophage] 500 mg PO DAILY Discharge Medication List Apixaban [Eliquis] 5 mg PO BID 10/02/20 [History] Atorvastatin [Lipitor] 80 mg PO HS 10/02/20 [History] Cholecalciferol [Vitamin D3 (25 Mcg = 1000 Iu)] 25 mcg PO DAILY 10/02/20 [History] Ferrous Sulfate [Iron (65 MG Elemental)] 325 mg PO DAILY 10/02/20 [History] Sennosides [Senna] 8.6 mg PO HS 10/02/20 [History] diazePAM [Valium] 10 mg PO HS 10/02/20 [History] oxyCODONE-APAP 10-325MG [Percocet 10-325 mg] 1 tab PO QID PRN 10/02/20 [History] traZODone HCL 150 mg PO HS PRN 10/02/20 [History] Omeprazole [PriLOSEC] 20 mg PO DAILY 02/25/21 [History] metFORMIN HCL [Glucophage] 500 mg PO DAILY 02/14/22 [History] Cyclobenzaprine [Flexeril] 5 mg PO TID #90 tablet 02/15/22 [Rx] Gabapentin 300 mg PO TID #90 cap 02/15/22 [Rx] cefaDROXiL [Duricef] 500 mg PO Q12HR 3 Days #6 cap 02/15/22 [Rx] oxyCODONE HCL [OxyIR] 5 mg PO Q4-6H PRN #42 tab 02/15/22 [Rx] Follow up Appointment(s)/Referral(s): Dennis Benjamin MD [REFERRING] - 02/17/22 2:00 pm Marco Contreras DO [Doctor of Osteopathic Medicine] - 02/25/22 9:10 am Patient Instructions/Handouts: Cefadroxil (By mouth), Cyclobenzaprine (By mouth), Gabapentin (By mouth), Wrist Fracture in Adults (ED), Wrist Fracture in Adults (DC), Wrist Fracture in Adults (GEN) Activity/Diet/Wound Care/Special Instructions: NWB with right upper extremity- Sling prn Stay in Splint until follow up in office in 10 days Keep Splint clean, dry, intact. Do not get wet. Ice/Elevation for pain relief and reduce edema Take Aspirin 81mg daily x4 weeks. Do not take Oxy IR 5mg and Percocet 10/325mg together. If you feel you can manage your pain on just the Percocet than stop Oxy IR. Discharge Disposition: HOME SELF-CARE
[2022-02-16] MEDS ORDERED: FERROUS SULFATE 325 MG TAB PO SCH (09:00)
[2022-02-16] MEDS ORDERED: CHOLECALCIFEROL 25 MCG (1000 IU) TABLET PO SCH (09:00)
[2022-02-16] MEDS ORDERED: NON FORMULARY DRUG (Omeprazole 20 MG Capsule) PO SCH (09:00)
== END 2022-02-16 10:00 | disposition home or self-care (01) | DRG 512 ==
LOC: EC 11:30 → 5NMEDONC 14:48
PROVIDERS: ADMIT Orthopaedic Surgery; ATTEND Orthopaedic Surgery
PROC: 0PBH0ZZ Excision of Right Radius, Open Approach (ICD-10-PCS; 2022-02-14)
PROC: 3E0T3BZ Introduction of Anesthetic Agent into Peripheral Nerves and Plexi, Percutaneous Approach (ICD-10-PCS; 2022-02-14)
PROC: 0PSH34Z Reposition Right Radius with Internal Fixation Device, Percutaneous Approach (ICD-10-PCS; principal; 2022-02-14 15:30)
DX: S52.571B Other intraarticular fracture of lower end of right radius, initial encounter for open fracture type I or II (principal); W11.XXXA Fall on and from ladder, initial encounter; Z88.5 Allergy status to narcotic agent; K21.9 Gastro-esophageal reflux disease without esophagitis; I10 Essential (primary) hypertension; E78.5 Hyperlipidemia, unspecified; Z79.01 Long term (current) use of anticoagulants; Z79.84 Long term (current) use of oral hypoglycemic drugs; Z79.899 Other long term (current) drug therapy; Z87.891 Personal history of nicotine dependence
CPT/HCPCS: 36415; 64415; 70450; 71045; 72125; 72170; 74176; 76942; 80053; 80306; 80320; 84484; 85025; 85610; 85730; 86850; 86900; 86901; 90471; 90715; 96365; 96375; 96376; 99291

== ENCOUNTER → 2022-04-19 | Outpatient (CLI) | payer MEDICARE ==
--- NOTE | 2022-04-19 11:38 | FL ---
EXAMINATION TYPE: FL barium swallow DATE OF EXAM: 04/19/2022 11:21 AM COMPARISON: 02/14/2022 CT abdomen pelvis CLINICAL INDICATION:Male, 71 years old with history of K21.9 GASTRO-ESOPHAGEAL REFLUX DISEASE WITHOUT ESO; TECHNIQUE: The procedure was explained and patient history elicited. All patient questions were ans wered prior to start of procedure. Multiple spot fluoroscopic images of the esophagus were obtained a fter the oral ingestion of effervescent crystals and liquid barium as the contrast agent. Fluoroscopic time: 35 second Radiographs taken: 263 FINDINGS: The esophagus demonstrates Tertiary contractions are present. Is . The esophageal mucosa is smooth w ithout evidence of focal stricture, ulceration, or abnormal outpouching. No gastroesophageal reflux disease was identified. No evidence of hiatal hernia. There is delayed emptying of the distal esophag us. Visualized portions of the gastric lumen and duodenum grossly unremarkable. IMPRESSION: Esophageal dysmotility, worse while lying prone.
== END | disposition home or self-care (01) ==
LOC: RADUSWWP 07:53
PROVIDERS: ATTEND Otolaryngology Otolaryngology/Facial Plastic Surgery
DX: K22.4 Dyskinesia of esophagus (principal); K21.9 Gastro-esophageal reflux disease without esophagitis
CPT/HCPCS: 74220

== ENCOUNTER 2022-04-22 07:46 | Day surgery (SDC) | payer MEDICARE ==
[2022-04-22] MEDS ORDERED: diazePAM 5 MG TAB PO PRN (08:27)
[2022-04-22 08:54] VITALS: RESP 18; TEMP 97.3
[2022-04-22] MEDS ORDERED: HYDROcodone/APAP 10-325MG 1 EACH TAB PO STA (10:23)
[2022-04-22] MEDS ORDERED: oxyCODONE-APAP 10-325MG 1 EACH TAB PO PRN (10:25)
--- NOTE | 2022-04-22 10:34 | CT ---
EXAMINATION TYPE: CT lumbar spine w con CT DLP: 1024 mGycm, Automated exposure control for dose reduction was used. DATE OF EXAM: 04/22/2022 10:14 AM COMPARISON: CT 02/14/2022. CLINICAL INDICATION:Male, 71 years old with history of M43.26 Status post lumbar fusion; TECHNIQUE: Multiple axial images were obtained from the midportion of T11 through the sacroiliac radha nts. Soft tissue and bone windows in coronal and sagittal planes were obtained and reviewed. 3-D ref ormats of the bones were created on a separate workstation and submitted for review. Contrast used:10ml mL of Isovue M200 none. Oral contrast used: none. FINDINGS: Alignment: There are 5 lumbar type vertebral bodies with postsurgical straightening. Bone: Multilevel disc degeneration changes versus with L1 compression deformity consistent with fract ure which is new from 02/14/2022 with 2 mm retropulsion. Fixation hardware involving L5 and S1 and the left sacroiliac joint. Discs: T12-L1: No spinal canal or neural foraminal stenosis is identified. L1-L2: No spinal canal or neural foraminal stenosis is identified. L2-L3: No spinal canal or neural foraminal stenosis is identified. L3-L4: No spinal canal or neural foraminal stenosis is identified. L4-L5: No spinal canal or neural foraminal stenosis is identified. L5-S1: No spinal canal or neural foraminal stenosis is identified. Other: There is saccular dilation of the infrarenal aorta measuring up to 4.3. Atherosclerosis the ar terial vasculature. IMPRESSION: 1. L1 compression fracture new from 02/14/2022 mild retropulsion 2 mm. 2. No evidence of significant spinal canal or neural foraminal stenosis. 3. Infrarenal abdominal saccular aneurysmal dilation measuring up to 4.3 cm. 4. Right adrenal lipid rich adenoma.
--- NOTE | 2022-04-22 11:21 | FL ---
EXAMINATION TYPE: FL myelogram lumbosacral DATE OF EXAM: 04/22/2022 10:16 AM CLINICAL INDICATION:Male, 71 years old with history of M43.26 S/P lumbar fusion; COMPARISON: 02/14/2022 ATTENDING: Guanako Mendez D.O. FINDINGS: Informed consent was obtained including discussion of the risks and benefits. Timeout was taken per p rotocol. Real-time fluoroscopy was performed to localize the L5-S1 intervertebral space. The patient was prepped and draped. Under sterile technique with local anesthesia a 22-gauge spinal needle was in troduced into the arachnoid space with return of clear CSF. A total of 10 cc of Isovue-200 M was inje cted with appropriate opacification of the thecal sac. Total fluoroscopy time was 2.0 minutes Total fluoroscopic images 0. Radiographs taken: 1 IMPRESSION: Successful lumbar puncture with injection for CT myelogram. CT pending.
[2022-04-22] MEDS ORDERED: ACETAMINOPHEN TAB 325 MG TAB PO ONE (13:15)
[2022-04-22] MEDS ORDERED: ACETAMINOPHEN TAB 325 MG TAB ONE (13:16)
[2022-04-22 13:47] VITALS: BP 150/79; PULSE 56
== END 2022-04-22 13:52 | disposition home or self-care (01) ==
LOC: RADPROMAIN 07:46
PROVIDERS: ATTEND Orthopaedic Surgery
DX: M48.56XA Collapsed vertebra, not elsewhere classified, lumbar region, initial encounter for fracture (principal); Z98.1 Arthrodesis status
CPT/HCPCS: 62304; 72132; J2001; Q9966

== ENCOUNTER → 2022-04-28 | Outpatient (CLI) | payer MEDICARE ==
[2022-04-28 17:34] LABS: African American GFR (CKD) >90 (>60 ml/min/1.73 sqM); Blood Urea Nitrogen 18 mg/dL (9-20); Non-African American GFR(CKD) 88 (>60 ml/min/1.73 sqM)
--- NOTE | 2022-04-28 22:44 | CT ---
EXAMINATION TYPE: CT abdomen w con CT DLP: 1217.5 mGycm, Automated exposure control for dose reduction was used. DATE OF EXAM: 04/28/2022 6:08 PM COMPARISON: CT abdomen pelvis most recent from 10/08/2020, 02/14/2022. CLINICAL INDICATION:Male, 71 years old with history of K86.3 MALIGNANT NEOPLASM OF LOWER LOBE, LEFT; Cyst and pseudocyst of pancreas. TECHNIQUE: Axial CT of the abdomen and pelvis. Sagittal and coronal reformats were created on a [employer] workstation. Contrast used:100cc mL of Isovue 300 with IV Contrast, Oral contrast used: with Oral Contrast FINDINGS: LOWER CHEST: Central lobular emphysema changes are seen in the lung bases. Right gynecomastia changes . ABDOMEN LIVER: Unremarkable GALLBLADDER AND BILE DUCTS: Unremarkable. PANCREAS: Complex mass measuring up to 8.2 x 5.0 x 5.3 cm, previously 12.2 x 5.9 x 5.9 cm in 2020 and 8.6 x 5.1 x 5.0 cm on 02/14/2022. There is internal complexities present and located in the pancreati c body/tail. ADRENAL GLANDS: Stable right adrenal 2.0 cm probable benign lipid rich adrenal adenoma. Left adrenal gland is unremarkable. KIDNEYS AND URETERS: No evidence of hydronephrosis or renal calculus. The ureters are unremarkable. PELVIS BLADDER: Unremarkable REPRODUCTIVE: Unremarkable. ABDOMEN & PELVIS STOMACH AND BOWEL: No evidence of bowel obstruction. Scattered clonic diverticula. Metallic densities in the lower abdomen could be from prior surgical intervention. PERITONEUM: No evidence of pneumoperitoneum or free fluid. VASCULATURE: No evidence of aortic aneurysm. Atherosclerosis of the arterial vasculature with a tortu ous course to the abdomen. There is fusiform dilation of the infrarenal aorta measuring up to 3.7 cm this is similar to prior on 10/08/2020. MUSCULOSKELETAL: No acute osseous abnormalities , left sacroiliac joint fixation hardware which appea rs intact. LYMPH NODES: No gross evidence for lymphadenopathy. SOFT TISSUE/ABDOMINAL WALL: Fat-containing umbilical hernia. IMPRESSION: 1. Stable to minimally decreased in size pancreatic body/tail probable pseudocyst. 2. Infrarenal aortic aneurysm measuring up to 3.7 cm compared to priors dating back to 2020.
== END | disposition home or self-care (01) ==
LOC: RADCTMAIN 16:46
PROVIDERS: ATTEND Internal Medicine Gastroenterology
DX: K86.3 Pseudocyst of pancreas (principal); I71.43 Infrarenal abdominal aortic aneurysm, without rupture
CPT/HCPCS: 82565; 84520; 74160; 36415; Q9967 ×2

== ENCOUNTER → 2022-05-05 | Outpatient (CLI) | payer MEDICARE ==
[2022-05-05 17:11] LABS: INR 1.1 (<1.2); Prothrombin Time 11.5 sec (9.0-12.0)
[2022-05-05 22:55] LABS: Basophils # (A) 0.02 X 10*3/uL (0.00-0.10); Basophils % (A) 0.3 %; Eosinophils # (A) 0.18 X 10*3/uL (0.04-0.35); Eosinophils % (A) 2.6 %; HCT 40.3 % (39.6-50.0); HGB 12.7 g/dL (13.0-17.0); Immature Grans, Automated 0.4 %; Lymphocytes # (A) 1.56 X 10*3/uL (0.90-5.00); Lymphocytes % (A) 22.6 %; MCH 30.7 pg (27.0-32.0); MCHC 31.5 g/dL (32.0-37.0); MCV 97.3 fL (80.0-97.0); Mean Platelet Volume 9.2 fL (9.5-12.2); Monocytes % (A) 7.2 %; NRBC Per 100 WBC 0 /100 WBCS (0.0-0.0); Neutrophils # (A) 4.61 X 10*3/uL (1.80-7.70); Neutrophils % (A) 66.9 %; Platelet Count 366 X 10*3/uL (140-440); RBC 4.14 X 10*6/uL (4.40-5.60); RDW 13.2 % (11.5-14.5)
[2022-05-06 00:05] LABS: African American GFR (CKD) 78.4 (60.0-200.0); Anion Gap 8.9 mmol/L (10.00-18.00); BUN/Creat Ratio 14.91 Ratio (12.00-20.00); Blood Urea Nitrogen 16.4 mg/dL (9.0-27.0); Calcium 9.7 mg/dL (8.7-10.3); Carbon Dioxide 29.1 mmol/L (20.0-27.5); Non-African American GFR(CKD) 67.7 (60.0-200.0); Potassium 4.7 mmol/L (3.5-5.5)
== END | disposition home or self-care (01) ==
LOC: LABWHC1 15:55
PROVIDERS: ATTEND Orthopaedic Surgery
DX: Z01.818 Encounter for other preprocedural examination (principal); S32.010A Wedge compression fracture of first lumbar vertebra, initial encounter for closed fracture; R00.1 Bradycardia, unspecified; Z22.322 Carrier or suspected carrier of Methicillin resistant Staphylococcus aureus; X58.XXXA Exposure to other specified factors, initial encounter
CPT/HCPCS: 36415; 80048; 85025; 85610; 87070; 93005

== ENCOUNTER → 2022-05-05 | Outpatient (CLI) | payer MEDICARE ==
--- NOTE | 2022-05-05 19:42 | XR ---
EXAMINATION TYPE: XR shoulder complete RT DATE OF EXAM: 05/05/2022 3:55 PM INDICATION: Patient age:Male; 71 years old; Reason for study: pain; COMPARISON: None TECHNIQUE: The right shoulder was examined in AP, internally rotated and scapular Y projections. . FINDINGS: No evidence of acute osseous pathology, joint dislocation, or soft tissue swelling. The remaining por tions of the visualized chest are unremarkable. Mild joint space narrowing and degeneration changes o f the AC and glenohumeral joints. IMPRESSION: 1. No acute osseous pathology. 2. Mild right shoulder degeneration of the acromioclavicular and glenohumeral joint.
== END | disposition home or self-care (01) ==
LOC: RADXRMAIN 15:32
PROVIDERS: ATTEND Orthopaedic Surgery
DX: M19.011 Primary osteoarthritis, right shoulder (principal)
CPT/HCPCS: 86850; 86900; 86901

== ENCOUNTER 2022-05-14 11:00 | Day surgery (SDC) | payer MEDICARE ==
[2022-05-11 11:48] VITALS: BMI 26.5
[~2022-05-14 11:00] MED LIST changes: +ACETAMINOPHEN TAB 500 MG TAB PO PRN; -ALPRAZolam 0.25 MG TAB PO PRN; -ALPRAZolam 0.5 MG TAB PO PRN; -ASPIRIN 325 MG TAB PO STA; -ATORVASTATIN 80 MG TAB PO STA; +GABAPENTIN 300 MG CAP PO PRN; -NITROGLYCERIN SL TABS 0.4 MG TAB SUBLINGUAL PRN; +ONDANSETRON 4 MG/2 ML VIAL IVP PRN; -SODIUM CHLORIDE 0.9% 1,000 ML in EMPTY BAG 1 BAG IV SCH; +TRANEXAMIC ACID IN NACL,ISO-OS 1,000 MG in SALINE 1 100ML.BAG IVPB PRN
[2022-05-14] MEDS ORDERED: LACTATED RINGERS 1,000 ML IV SCH (11:15)
[2022-05-14] MEDS ORDERED: ONDANSETRON 4 MG/2 ML VIAL IVP ONE (11:15)
[2022-05-14] MEDS ORDERED: LIDOCAINE 1% (10MG/ML) FOR IV START INTRADERMA PRN (11:15)
[2022-05-14] MEDS ORDERED: DEXAMETHASONE SOD PHOSPHATE 4 MG/ML 1 ML VIAL IV ONE (11:15)
[2022-05-14] MEDS ORDERED: MIDAZOLAM 2 MG/2 ML VIAL IV PRN (11:15)
[2022-05-14 11:50] LABS: Glucose,Whole Blood 105 mg/dL (70-110)
--- NOTE | 2022-05-14 12:38 | P.HPOR ---
History of Present Illness H&P Date: 05/05/22 .D:Date: 05/05/22 : 02:31pm .T:Title: [facility] Date of :[birth year] Age: 71 year Height: 5'10" Weight: 186 lbs BMI: 26.69 kg/m2 Occupation: Retired VAS: 6 CHIEF COMPLAINT: Recheck Low back pain and review CT myelogram DOI: 02/14/2022 right distal radius DOS: 02/14/2022 right distal radius, lumbar spine, SI joint through Dr. Cifuentes and Dr. Welsh Duration of current treatment regiment: >3 months HISTORY : Xrays No new xrays taken in office Trauma or injury No Work-Related No Pain description aching, burning, sharp. Location posterior Patient notes that their pain radiates to left lower extremity Activity Modification yes Hand Dominance right TREATMENTS COMPLETED: 6 weeks of PT completed? Month and Year of last PT date? No Physician directed home exercise completed? yes Patient has trialed the physician directed home exercise program for greater than 3 months without relief of their symptoms. Medications yes List: Percocet with mild/temporary relief of his symptoms. Alternative interventions Chiropractic: No Massage therapy: No R.I.C.E: yes heat/ice without relief Brace: No Injections No RFA: No SUBJECTIVE: Mr. Adhikari returns to the office for a recheck of their low back pain and review his CT myelogram obtained after the last appointment. Patient reports no improvements to his symptoms since the time of the last appointment. The patient continues to complain of aching, burning, sharp, increasing lumbar pain ongoing for several years with no known injury or trauma to indicate an exact onset of their symptoms. Of note the patient does report that he did fall off of a ladder "a couple weeks ago" which did exacerbate his symptoms. In addition to their lumbar pain, they do report that it radiates into the left lower extremity, associatedwith numbness and tingling through the left leg diffusely. Overall the patient has seen a progressive increase in symptoms since their onset. Mr. Adhikari symptoms are exacerbated with any standing, ambulation, and high impact movements like walking up and down stairs, due to this they notes that it is increasingly difficult for Mr. Adhikari to complete many of their daily tasks. Patient is having severe sleep disturbances as well due to their ongoing pain and associated symptoms. Regarding treatments, the patient has previously trialed all abovementioned treatment modalities without relief of her symptoms. Patient denies trialing any other modalities at this time. For their symptoms, the patient has been taking Percocet and Gabapentin without relief of his symptoms. Patient is currently on Eliquis Otherwise the patient denies any f/c/sob/cp, no incision concerns, no bladder or bowel retention/incontinence, no perineal numbness/tingling, and ambulates independently. HPI: Mr. Adhikari last returned to the office on 03/29/22 for an evaluation of their low back pain. Patient reports aching, burning, sharp, increasing lumbar pain ongoing for several years with no known injury or trauma to indicate an exact onset of their symptoms. Of note the patient does report that he did fall off of a ladder "a couple weeks ago" which did exacerbate his symptoms. Furthermore the patient does have a history of prior lumbar fusion and left SI joint fusion. In addition to their lumbar pain, they do report that it radiates into the left lower extremity, associatedwith numbness and tingling through the left leg diffusely. Overall the patient has seen a progressive increase in symptoms since their onset. Mr. Adhikari symptoms are exacerbated with prolonged standing, ambulation, and high impact movements like walking up and down stairs, due to this they notes that it is increasingly difficult for Mr. Adhikari to complete many of their daily tasks. Patient is having moderate sleep disturbances as well (due to their ongoing pain and associated symptoms). Regarding treatments, the patient has previously trialed all abovementioned treatment modalities without relief of his symptoms. Patient denies trialing any other modalities at this time. Otherwise the patient denies any f/c/sob/cp, no incision concerns, no bladder or bowel retention/incontinence, no perineal numbness/tingling, and ambulates independently. Mr. Adhikari was last seen on 03/15/2022 regarding right right distal radius but has not been seen previously for his lumbar spine. The patients' past social, medical, family, surgical history, as well as review of systems, have been reviewed. Please refer to the Neurosurgery History and Physical form that has been scanned in to our electronic medical record system. 14 points review of systems completed and as stated in HPI, all other systems reviewed are negative. Social History: Reviewed, see appropriate section of the chart for details. P3 Social History: Smoking: never a smoker P3 Alcohol: none P3 Family History: Reviewed, see appropriate section of the chart for details. P2 Past Medical History: Reviewed, see appropriate section of the chart for details. [id number] Medications: Rx: Eliquis 5 mg tablet Ref: 0 Rx: iron Ref: 0 Rx: Lipitor 80 mg tablet Ref: 0 Rx: metFORMIN 500 mg tablet Ref: 0 Rx: Percocet 10 mg-325 mg tablet Ref: 0 Rx: Senokot 8.6 mg tablet Ref: 0 Rx: traZODone 100 mg tablet Ref: 0 Rx: Vitamin D3 Ref: 0 Rx: cefaDROXil 500 mg capsule Ref: 0 PHYSICAL EXAMINATION: General: Awake, alert, appropriate for age, in no acute distress. HEENT: No unusual neck masses around region of lateral neck triangle, thyroid, supraclavicular groove Heart: Regular rate and rhythm, normal S1, S2 and no murmur/gallop. Lungs: Clear to auscultation bilaterally with no use of accessory muscles. Extremities: Skin warm and dry without acute lesions, coloration, temperature, skin intact, no tenderness or erythema Integument: Hairy patches: ABSENT Dorsal skin dimples: ABSENT Cafe au lait spots: ABSENT Surgical incisions: Well healed right distal radius incision Palpation: Please see Pain drawing on Intake sheet for further detail. Midline spinal tenderness: Yes, pain with ballottement of L1 E6 Cervical Tenderness: No E6 Paralumbar tenderness: Yes E6 Parathoracic tenderness: Yes E6 Buttocks tenderness: No E6 POSTURAL and MUSCULO-SKELETAL EVALUATION: Coronal Balance: NEUTRAL Recumbent testing: Patient is able to lay flat on back Sagittal Balance: NEUTRAL Shoulder Profile: LEVEL Pelvic Girdle: LEVEL Neck ROM: UNRESTRICTED Lumbar ROM: RESTRICTED Shoulder ROM: Symmetrical Hip ROM: Symmetrical Knee ROM: Symmetrical Hands: Normal appearance, symmetrical Feet: Normal appearance, Symmetrical VASCULAR STATUS : LEFT RIGHT Wrist Pulses INTACT INTACT Pedal Pulses (Dors. pedis & post.tibialis) INTACT INTACT Color NORMAL NORMAL Edema Absent Absent NEUROLOGIC EXAMINATION: Mental Status:Awake and alert, fully oriented, with normal attention, concentration and memory, and fluent, appropriate speech. Cranial Nerves: I: Olfactory not tested. II: Visual acuity normal, no visual field deficit noted with confrontation. III,IV: Normal pupillary reflexes & intact extraocular movements without nystagmus. V,: Intact symmetrical facial sensation. VII: Intact symmetrical facial motor movement VIII: Hearing intact. IX,X: Intact gag, swallow, & normal voice. XI: Sternocleidomastoid, trapezius function intact. XII: Tongue midline with normal movements. L'hermitte's Sign: Negative / absent Spurling'Sign: Absent bilaterally. Cubital percussion test: Absent bilaterally. Noguera-Tinel sign - Carpal region: Absent bilaterally. Straight Leg Raising: Absent bilaterally. Crossed straight leg raise: negative O8 MOTOR EXAM (0-5/5, N/T Muscle appearance: Symmetrical, without signs of atrophy or dystrophy UPPER EXTREMITY RIGHT LEFT Shoulder Abduction 5/5 5/5 Biceps 5/5 5/5 Triceps 5/5 5/5 Wrist Extension 4+/5 5/5 Hand Intrinsics 4+/5 5/5 Phd Internship 4+/5 5/5 Right hand weaker due to general deconditioning after his recent surgery Hand and finger dexterity intact bilaterally? yes Disdiadochokinesis examination negative bilaterally? yes LOWER EXTREMITY RIGHT LEFT Hip Flexion 5/5 5/5 Knee Extension 5/5 5/5 Knee Flexion 5/5 5/5 Dorsiflexion 5/5 4+/5 Plantarflexion 5/5 4+/5 EHL 5/5 5/5 FHL 5/5 5/5 Toe heel walk / heel-toe walk intact while maintaining satisfactory balance? No Squatting/straightening w/o assistance to a min of 60 degree knee flexion? No Single leg stance: not intact on the left side Trendelenburg sign negative bilaterally REFLEXES(0-4/2, NT)Upper ExtremityLower Extremity Right 2 2 Left 2 2 Pathological Reflexes RIGHT LEFT Noguera's Absent Absent Clonus Absent Absent Babinski Absent Absent Sensory system (0-4, N/T) Test type RU SOPHIA RL LL Joint-Position 2 2 2 2 Vibration 2 2 2 2 Pain & LT sense 2 2 2 2 Dermatomal Deficit: None None None None Gait and Functional Evaluation: Ambulatory aids: Independent Romberg's test: Intact bilaterally Unsteady Gait RADIOGRAPHIC STUDIES: CT myelogram from 04/21/22 completed at [facility] of the lumbar spine: Images reviewed with pt. Post surgical changes L4-5 with likely pseudoarthrosis L4-5 L1 VCF with 50% collapse, interval change since previous images, worsened. Mild retropulson. Spondylosis L3-4 noted and L5-S1, moderate, no severe stenosis L1-2 spondylosis with no severe stenosis Alighnment is kyphotic due to fracture at L1 No other fractures No lesions XRay Lumbar Multiview (AP, Lateral, Flexion, Extension) ; 4 views taken at [facility] on 03/29/22 of Lumbar Spine: images reviewed the patient demonstrated postsurgical changes L4-L5 with posterior lateral interbody fusion noted. There is a left-sided SI fusion noted as well done in a minimally invasive approach. These appear within normal limits. Screws and rods appear to be in position without evidence of loosening. His adjacent segment disease L5-S1 secondary to disc collapse as well as L3-L4 secondary to disc collapse. His increased segmental lordosis L5- S1 secondary to this as well as L3 to 4 secondary to retrolisthesis. No acute fractures otherwise noted other than the previously noted Acute fracture at L1. Which is stable at this time. IMPRESSION: It was my pleasure to have seen and examined Jordi. I reviewed the patient's clinical syndrome, physical findings, and imaging studies during the appointment today. It is my impression that the patient has a diagnosis of. 1. L1 VCF 50% collapsed, progression since previous images with increased and continued pain 2. Mechanical back pain secondary to #1 3. LE radiculopathy, likely chronic 4. 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 s/p Right wrist ORIF 6. S/p fall from ladder I outlined the natural course history without intervention and various interventional options. PLAN: Based on my findings I suggest the following course of action: - Patient referred to Dr. Reyes for further evaluation of his ongoing right shoulder pain and symptoms. - Patient given order for right shoulder xrays to be completed at the hospital as they could not be obtained in clinic at this time. - I discussed treatment options with the patient, including operative and non- operative options, and they have elected to proceed with the following surgical procedure: lumbar (L1) Kyphoplasty The indications, risks, benefits, and alternatives to surgery were discussed with the patient and family at length. Specifically (but not limited to) the risks of infection, stiffness, recurrence of symptoms, need for revision surgery, local numbness, neurovascular injury, and blood clots were discussed. The patient's questions were answered. The decision to proceed was made. Consent will be obtained for the procedure. -Advised patient to continue with supplements, health maintenance, and home exercise programs. Patient expressed understanding and will continue with these modalities. Spine Surgery Risk Review Mr. Adhikari is presenting for evaluation of low back pain. It was my pleasure to have seen and examined Mr. Adhikari. In our visit today we have had a chance to go over subjective complaints, physical examination findings and treatments including the natural course history without intervention and various interventional options. The patients imaging demonstrates: CT myelogram from 04/21/22 completed at [facility] of the lumbar spine: Images reviewed with pt. Post surgical changes L4-5 with likely pseudoarthrosis L4-5 L1 VCF with 50% collapse, interval change since previous images, worsened. Mild retropulson. Spondylosis L3-4 noted and L5-S1, moderate, no severe stenosis L1-2 spondylosis with no severe stenosis Alighnment is kyphotic due to fracture at L1 No other fractures No lesions XRay Lumbar Multiview (AP, Lateral, Flexion, Extension) ; 4 views taken at [facility] on 03/29/22 of Lumbar Spine: images reviewed the patient demonstrated postsurgical changes L4-L5 with posterior lateral interbody fusion noted. There is a left-sided SI fusion noted as well done in a minimally invasive approach. These appear within normal limits. Screws and rods appear to be in position without evidence of loosening. His adjacent segment disease L5-S1 secondary to disc collapse as well as L3-L4 secondary to disc collapse. His increased segmental lordosis L5- S1 secondary to this as well as L3 to 4 secondary to retrolisthesis. No acute fractures otherwise noted other than the previously noted freshen fracture at L1. Which is stable at this time. On physical exam, Mr. Adhikari demonstrates increasing low back pain and pain with ballottement of L1. Furthermore the patient reports continued, severely restricted lumbar ROM. Overall functional testing is very limited due to pain. He does demonstrate left lower extremity weakness and is unsteady on his feet. Patient ambulating independently. I have explained to the patient that as their condition progresses it will cause further neurological deficits and eventual paralysis. Based on the patients imaging, physical exam, and the rapid progression and disabling nature of their symptoms, at this time I recommend surgery in the form or a: lumbar (L1) Kyphoplasty . I discussed the risk and benefits of this procedure at length with Mr. Adhikari. The patient agreed to considered pursuing the procedure abovementioned. Prior to surgery, she should follow up with her PCP (Cardio, ID, IM etc) for clearance. Questions were invited and answered, and the patient wishes to proceed as outlined below. Currently, I am recommendin.lumbar (L1) Kyphoplasty 2.Follow up with PCP for surgical clearance 3.Review of surgical risks and benefits as well as an educational packet on the proposed surgical procedure. Risks: All surgical procedures come with inherent risks, including those related to positioning, anesthesia, intraoperative findings, and postoperative complications. It is important to understand that surgery does not come with any guarantee of a successful outcome as complications and adverse events are always possible. The patient was given a handout in office today discussing the surgical procedure and risks associated with the intervention, both of which were discussed with the patient. These risks include but are not limited to the following: * Experiencing same, different or even worse symptoms in back, neck, arms, or legs compared to before surgery. Requiring further surgery or other forms of treatment presently or at some time in the future at same or other levels of the intended spine surgery. On an extreme but fortunately relatively rare basis severe complication such as blindness, stroke, heart attack, temporary and/or permanent nerve injury, paralysis, coma, or may occur, sometimes without known explanation. Surgical complications may include but are not limited to risk of infection, fluid accumulation in the surgical dissection site, including a seroma or hematoma, that requires additional surgery, wound drainage, bleeding, new numbness or weakness, vision changes/loss, spinal fluid leakage, non-healing and/or infected incision, headaches, difficulty or inability to swallow, ho arseness, hemopneumothorax, pneumothorax, impotence, retrograde ejaculation, vaginal dryness; injury to nerves, spinal cord, blood vessels, lymphatics or other vital organs (i.e., bowel injury, injury to the great vessels); heterotopic bone formation; complications related to the hardware such as screws, rods, cages including misplaced hardware, device failure, instrumentation at the wrong spine level, hardware fracture/breakage, or hardware loosening; vertebral failure of the spinal column above or below the newly placed hardware; retained surgical instrumentations or devices and the need for further surgery. * Medical risks of the planned spine surgery include but are not limited to generalized Infections to the whole body or local areas outside of the surgical site (sepsis), heart attack, bleeding, anaphylaxis, meningitis, seizure, epilepsy, hearing loss, burn casiano, laceration of the head or other areas of the body, bruising, hypersensitivity of the skin, bladder over diste nsion; allergic reaction; shoulder injury related to positioning; fat, blood and air clots to other areas of the body like heart, lungs, brain; failure of internal organs such as lungs, kidneys, liver and excessive bleeding. If blood transfusions are necessary, note that transfusions may cause intolerance reactions such as anaphylaxis or other complex reactions. Despite best efforts, the results of spine surgery might not heal in terms of bone, soft tissues such as skin, fascia, ligaments, and joints. Additionally, in order to achieve best possible results, spine surgery may be carried out b eyond the initially planned levels and involve decompression, fusion including insertion of hardware at levels other than the original intended area of surgical interest change some portions of the procedure in order to ensure the best possible outcomes. With spine surgery and spinal fusion, there are different off label uses of instrumentation (devices, implants and hardware) as well as biological substances (bone morphogenic proteins, demineralized bone matrix) as well as using extra bone from allograft sources (i.e. cadaver bone) or autograft (iliac crest bone, ribs, or the spine itself). The patient has been given information about these practices and their inherent risks and benefits. [facility] is an educational center that serves as a training facility for neurosurgical and orthopedic BILINGUAL TEACHER AIDE and Nursing students. Physician assistants are medically trained surgical providers who function in the outpatient, inpatient, and operating room setting under the direct supervision of the attending surgeon. [facility] has multiple operating rooms with single and overlapping rooms running daily. They currently function under the required guidelines as produced by the Senate Finance Committee with regards to the overlapping rooms and will continue to comply with changes to this policy as they occur. The requirements include and are complied with as follows: (1) the critical portions of the overlapping rooms will not occur at the same time, (2) the attending physician will be physically present during the critical portions of the procedure and immediately available during the entire case, and (3) a back-up attending is designated should the primary attending not be immediately available. The patient has had a chance to review all the listed information, has been given print outs detailing this information, and has had all his/her questions answered to their satisfaction. It was my pleasure to have seen and examined Mr. Adhikari. In our visit today we have had a chance to go over my understanding of our patient's current condition, the natural course history without intervention and various interventional options. Questions were invited and answered, and the patient wishes to proceed as outlined above. I have seen and examined the patient for 25 minutes and we have spent more than 50% of the time in repeat and detailed counseling about the patient's condition, its natural course history with out and as much as can be predicted with surgery and re-review of various surgical treatment options. In conclusion, Mr. Adhikari requested we proceed with the above suggested surgery and are willing to accept risks and limitations of the suggested surgery as nature of the disease process and our best attempts at treatment for the condition. Thank you again for allowing us to be part of your patient's care. Please don't hesitate to contact me if you have any further questions. Signed and authenticated by: Follow- up: 2 weeks post-procedure Patient Education: (Informational booklet, instructions, etc) given at today's appointment: Yes .ED:Patient Education: Y Plan at next visit: review progress and obtain xrays Medications Reviewed: YES In our visit today Mr. Adhikari and I have had a chance to go over my understanding of the patient's current condition, the natural course history without intervention and various interventional options. Questions were invited and answered, and the patient wishes to proceed as outlined above. I will be sure to keep you updated afterMr. Adhikari returns here for further follow-up. Thank you again for your referral. Please do not hesitate to contact me if you have any further questions. Signed and authenticated by: Marco Smith [facility] [address], [address] [address] This message is confidential, intended only for the named recipient(s) and may contain information that is privileged or exempt from disclosure under applicable law. If you are not the intended recipient(s), you are notified that the dissemination, distribution or copying of this information is strictly prohibited. If you received this message in error, please notify the sender then delete this message. Patient verbalizes understanding of the information discussed. The above note was initiated by Marco Adams, physician recording kennel assistant for Dr. Marco Contreras. This note has been reviewed by Dr. Contreras, who has made his personal changes and impressions for this document. # SIGNED BY Marco Contreras (GOO)05/05/2022 04:52PM Past Medical History Past Medical History: Chest Pain / Angina, GERD/Reflux, Hyperlipidemia, Hypertension, Prostate Disorder Additional Past Medical History / Comment(s): blood clot in splenic vein, pancreatitis, constipation, cyst on pancreas History of Any Multi-Drug Resistant Organisms: None Reported Past Surgical History: Back Surgery, Tonsillectomy Additional Past Surgical History / Comment(s): back surgery x 5 (Fusion,laminectomy,cage), Myelogram X 4 pre surgical Past Anesthesia/Blood Transfusion Reactions: No Reported Reaction Past Psychological History: No Psychological Hx Reported Smoking Status: Former smoker Past Alcohol Use History: None Reported Additional Past Alcohol Use History / Comment(s): quit smoking 30 yrs ago, smoked for 35 yrs Past Drug Use History: None Reported - Past Family History Mother Family Medical History: No Reported History Medications and Allergies Home Medications Medication Instructions Recorded Confirmed Type Apixaban [Eliquis] 5 mg PO BID 10/02/20 05/11/22 History Atorvastatin [Lipitor] 80 mg PO HS 10/02/20 05/11/22 History Cholecalciferol [Vitamin D3 (25 25 mcg PO DAILY 10/02/20 05/11/22 History Mcg = 1000 Iu)] Ferrous Sulfate [Iron (65 MG 325 mg PO DAILY 10/02/20 05/11/22 History Elemental)] Sennosides [Senna] 8.6 mg PO HS 10/02/20 05/11/22 History oxyCODONE-APAP 10-325MG [Percocet 1 tab PO QID PRN 10/02/20 05/11/22 History 10-325 mg] traZODone HCL 100 mg PO HS PRN 10/02/20 05/11/22 History Omeprazole [PriLOSEC] 20 mg PO DAILY 02/25/21 05/11/22 History metFORMIN HCL [Glucophage] 500 mg PO DAILY 02/14/22 05/11/22 History oxyCODONE HCL [OxyIR] 5 mg PO Q4-6H PRN #42 tab 02/15/22 05/11/22 Rx Allergies Allergy/AdvReac Type Severity Reaction Status Date / Time hydrocodone bitartrate Allergy Rash/Hives Verified 05/14/22 11:25 [From Vicodin] Physical Examination Osteopathic Statement: *. No significant issues noted on an osteopathic structural exam other than those noted in the History and Physical/Consult.
[2022-05-14] MEDS ORDERED: SUCCINYLCHOLINE CHLORIDE 200 MG/10 ML VIAL IV ONE (12:56)
[2022-05-14] MEDS ORDERED: MIDAZOLAM 2 MG/2 ML VIAL ONE (12:56)
[2022-05-14] MEDS ORDERED: ePHEDrine 50 MG/ML 1 ML VIAL ONE (12:56)
[2022-05-14] MEDS ORDERED: fentaNYL (PF) 50 MCG/ML 2 ML AMP ONE (12:56)
[2022-05-14] MEDS ORDERED: LIDOCAINE 2% INJ 20 MG/ML (2 ML VIAL) ONE (12:56)
[2022-05-14] MEDS ORDERED: PROPOFOL 10 MG/ML 20 ML VIAL IV ONE (12:56)
[2022-05-14] MEDS ORDERED: BUPIVACAIN-EPI 0.25%-1:200,000 30 ML VIAL SQ ONE (12:59)
[2022-05-14] MEDS ORDERED: IOPAMIDOL M200 10 ML VIAL MISCELLANE ONE (12:59)
--- NOTE | 2022-05-14 13:48 | XR ---
EXAM TYPE: LUMBAR SPINE X RAY SERIES COMPARISON: NONE HISTORY: Kyphoplasty TECHNIQUE: 6 views are submitted. FINDINGS: Limited intraoperative resolution images demonstrate compression deformities of vertebral bodies with vertebroplasty changes. IMPRESSION: 1. Postsurgical changes.
--- NOTE | 2022-05-14 13:49 | FL ---
EXAMINATION TYPE: FL guidance operating room DATE OF EXAM: 05/14/2022 HISTORY: Fluoroscopy time 38 seconds of fluoroscopy provided. IMPRESSION: 1. Fluoroscopy time.
[2022-05-14 13:54] VITALS: TEMP 97
[2022-05-14] MEDS: HYDROmorphone 0.5 MG/0.5 ML SYRINGE IVP PRN ×2 (14:00→14:29)
[2022-05-14] MEDS ORDERED: LACTATED RINGERS 1,000 ML IV ONE (14:30)
[2022-05-14] MEDS ORDERED: hydrALAZINE HCL 20 MG/ML 1 ML VIAL IVP ONE (14:35)
[2022-05-14 15:05] VITALS: RESP 18
[2022-05-14] MEDS ORDERED: oxyCODONE-APAP 5-325MG 1 EACH TAB ONE (15:09)
[2022-05-14 15:34] VITALS: BP 147/78
[2022-05-14 15:49] VITALS: PULSE 78
--- NOTE | 2022-05-17 12:04 | P.OP ---
Date of Procedure: 05/14/22 Preoperative Diagnosis: 1. L1 VCF 60%, wedge 2. Mechanical low back pain Postoperative Diagnosis: 1. L1 VCF 60%, wedge 2. Mechanical low back pain Procedure(s) Performed: 1. L1 kyphoplasty with biopsy 2. Needle localization of L1 using flouroscopic imaging Implants: -Samuel cement Anesthesia: GETA Surgeon: Marco Contreras Estimated Blood Loss (ml): 2 IV fluids (ml): 200 Urine output (ml): 0 Pathology: other (L1 vertebral body) Condition: stable Disposition: PACU Indications for Procedure: Mr. Adhikari is presenting for evaluation of low back pain. It was my pleasure to have seen and examined Mr. Adhikari. In our visit today we have had a chance to go over subjective complaints, physical examination findings and treatments including the natural course history without intervention and various interventional options. The patients imaging demonstrates: CT myelogram from 04/21/22 completed at [facility] of the lumbar spine: Images reviewed with pt. Post surgical changes L4-5 with likely pseudoarthrosis L4-5 L1 VCF with 50% collapse, interval change since previous images, worsened. Mild retropulson. Spondylosis L3-4 noted and L5-S1, moderate, no severe stenosis L1-2 spondylosis with no severe stenosis Alighnment is kyphotic due to fracture at L1 No other fractures No lesions XRay Lumbar Multiview (AP, Lateral, Flexion, Extension) ; 4 views taken at [facility] on 03/29/22 of Lumbar Spine: images reviewed the patient demonstrated postsurgical changes L4-L5 with posterior lateral interbody fusion noted. There is a left-sided SI fusion noted as well done in a minimally invasive approach. These appear within normal limits. Screws and rods appear to be in position without evidence of loosening. His adjacent segment disease L5-S1 secondary to disc collapse as well as L3-L4 secondary to disc collapse. His increased segmental lordosis L5- S1 secondary to this as well as L3 to 4 secondary to retrolisthesis. No acute fractures otherwise noted other than the previously noted freshen fracture at L1. Which is stable at this time. On physical exam, Mr. Adhikari demonstrates increasing low back pain and pain with ballottement of L1. Furthermore the patient reports continued, severely restricted lumbar ROM. Overall functional testing is very limited due to pain. He does demonstrate left lower extremity weakness and is unsteady on his feet. Patient ambulating independently. I have explained to the patient that as their condition progresses it will cause further neurological deficits and eventual paralysis. Based on the patients imaging, physical exam, and the rapid progression and disabling nature of their symptoms, at this time I recommend surgery in the form or a: lumbar (L1) Kyphoplasty . I discussed the risk and benefits of this procedure at length with Mr. Adhikari. The patient agreed to considered pursuing the procedure abovementioned. Prior to surgery, she should follow up with her PCP (Cardio, ID, IM etc) for clearance. Questions were invited and answered, and the patient wishes to proceed as outlined below. Currently, I am recommendin.lumbar (L1) Kyphoplasty Description of Procedure: The patient was seen and examined in the preoperative area. All preoperative protocols were followed. Informed consent was obtained, risks and benefits of the procedure were discussed at length. Risks including bleeding infection damage to the surrounding tissue and risk of re-operation were discussed with the patient. Risk of anesthesia up to and including was discussed with the patient. These are outlined in the risk review. They were willing to accept these risks and all the risks of surgery. The patient was given a weight-based dose of antibiotics in the form of 2 g Ancef. The patient was seen and evaluated by the anesthesia team who deemed them fit for surgery. The site was marked, the patient was willing to proceed with the procedure. The patient was transferred to the operative suite by the Department of anesthesia. They were then drifted off to sleep by the department anesthesia and GETA was performed. The patient tolerated this well. Once confirmation of lines and ventilation the patient was transferred to a prone Osmar table very carefully. All bony prominences including wrists, elbows, axilla, chest, hips, and thighs, and feet were padded very well. Special attention was paid to the genitalia, and these were padded accordingly. SCDs were placed on bilateral lower extremities and were connected. Arms were well padded and placed on arm boards up and out in the 90/90 position. Once in position, again we confirmed good ventilation capabilities and that lines were running appropriately. The patients Lumbar spine was then exposed. 1010s were placed outlining the incision site. Standard alcohol was used to clean the incision site and allowed to dry. C-arm was used to needle localize the pedicles at L1 and bio-royal the patient and confirm level for incision which was marked with a skin marker. Operative briefing was performed with all teams and everyone in agreement to proceed. The patient was then prepped and draped in a normal sterile fashion. Timeout was then performed, and all parties agreed with the procedure to be performed. Skin max was made. Jamshitdi was passed into the L1 vertebral body via the pedicle. This was done with biplane fluoroscopy. Once in good position in the body the trochar removed. Biopsy needle was passed into the body and biopsy taken. Drill was then passed and biopsy material taken from drill as well. Curette then used to reduce endplate and create more space. Balloon was then passed an inflated which showed good reduction of endplate on AP and Lateral and confirmed central placement. The cement was then placed and pt remained stable. Good fill of cement was seen without extravasation. Once good fill, the Jamshedi was removed and the wound irrigated. The skin was closed with a simple stitch and dressed with a bandaid. The patient was then transferred off the table back to their hospital bed a- traumatically. They were extubated by the department of anesthesia. They were then transferred to PACU in stable condition having tolerated the procedure with no complications.
== END 2022-05-14 16:00 | disposition home or self-care (01) ==
LOC: OR 11:00
PROVIDERS: ATTEND Orthopaedic Surgery
DX: S32.010A Wedge compression fracture of first lumbar vertebra, initial encounter for closed fracture (principal); I10 Essential (primary) hypertension; E78.5 Hyperlipidemia, unspecified; I25.10 Atherosclerotic heart disease of native coronary artery without angina pectoris; E11.9 Type 2 diabetes mellitus without complications; J44.9 Chronic obstructive pulmonary disease, unspecified; I71.40 Abdominal aortic aneurysm, without rupture, unspecified; K21.9 Gastro-esophageal reflux disease without esophagitis; Z79.84 Long term (current) use of oral hypoglycemic drugs; Z88.8 Allergy status to other drugs, medicaments and biological substances; Z79.899 Other long term (current) drug therapy
CPT/HCPCS: 22514; 20220; 86900; 86901; 86850; 88307; 88311; 72100; J2250; J0330; J0360; J1100; J0690; J2405; J3010; J2704; J1170; Q9966; J2001

== ENCOUNTER → 2022-05-19 | Outpatient (CLI) | payer MEDICARE ==
--- NOTE | 2022-05-19 19:38 | CT ---
EXAMINATION TYPE: CT angio abdomen pelvis DATE OF EXAM: 05/19/2022 COMPARISON: 04/28/2022 INDICATION: Aortic abdominal aneurysm w/o rupture DLP: 1205 mGycm, Automated exposure control for dose reduction was used. CONTRAST: 100 mL of Isovue 370. Study performed with Oral Contrast TECHNIQUE: Axial images were obtained from above the diaphragm to the pubic rami in the axial plane a t 5 mm thick sections. Reconstructed images are reviewed on the computer in the coronal plane. FINDINGS: Limited CT sections are obtained the lung bases. The lung bases are clear. CT ABDOMEN: Aorta: The celiac axis and superior mesenteric arteries are patent. The renal arteries ar e patent. At the level the renal arteries there is fusiform prominence of the abdominal aorta. This b ecomes aneurysmal within the mid abdominal aorta a 4.0 cm AP dimension of this is 4.1 cm just above t he bifurcation. The aneurysm resolves at the bifurcation. There is some fusiform prominence of the bi lateral common iliac arteries measuring 1.8 cm on the left the 1.5 cm on the right. Internal/external iliac vessels appear patent. Common femoral arteries are patent. Liver: Normal Spleen: Normal Pancreas: There is a large hypodense structure within the body of the pancreas measuring 8.8 x 4.8 cm . This is stable in size Adrenal glands: The adrenal glands are normal. Gallbladder: Possible small gallstones are present. Kidneys: No masses are evident. No hydronephrosis is present. No cysts are present. Delayed images were obtained through the kidneys, which remain unremarkable. Aorta: Vascular calcification is within the aorta. Inferior vena cava: Normal. CT PELVIS: Beam Hardening artifact limits portions of the evaluation within the upper pelvis. Loops of bowel within the abdomen and pelvis are normal. Scattered diverticuli are evident. Oral cont rast is present and extends to the distal small bowel loops. There are loops of bowel which are in completely distended or lack oral contrast limiting their evaluation. Appendix: Not identified. No dilated tubular structure or inflammatory changes identified. Urinary bladder: Incompletely distended, unremarkable as visualized. Genitourinary structures: Prostate is prominent Osseous structures: No suspicious lytic or sclerotic lesions. IMPRESSIONS: 1. Infrarenal abdominal aortic aneurysm measuring up to 4.1 cm appears to terminate at the bifurcati on. There is some fusiform prominence of the mid iliac vessels. 2. Stable appearance hypodense lesion within the body of the pancreas.
== END | disposition home or self-care (01) ==
LOC: RADCTMAIN 11:53
PROVIDERS: ATTEND Surgery
DX: I71.43 Infrarenal abdominal aortic aneurysm, without rupture (principal); K86.9 Disease of pancreas, unspecified
CPT/HCPCS: 82565; 84520; 36415; 74174; Q9967

== ENCOUNTER 2022-05-26 12:05 | Day surgery (SDC) | payer MEDICARE ==
[2022-05-21 15:38] VITALS: BMI 26.5
--- NOTE | 2022-05-25 12:25 | P.HPOR ---
History of Present Illness H&P Date: 05/25/22 Chief Complaint: Left cubital tunnel syndrome, left ulnar nerve neuroma Subjective: This is a 71 year old male that presents today for follow up evaluation regarding left hand paresthesias. He sustained an open comminuted intra- articular distal radius fracture on 02/14/22 and underwent urgent distal radius fracture ORIF and I&D of his open fracture . He notes about 2 weeks after he started to notice numbness and tingling mainly isolated to the ring and small fingers. He denies any paresthesias prior to surgery or immediately after. He states the pain and numbness radiates from the medial elbow down to the fingertips of the ring and small fingers. He also notes extreme sensitivity around the area of the laceration at the ulnar wrist which sends shocks and stabbing pain towards the back of the hand along the small and ring fingers. He states it effects his sleep and is getting worse. Physical Examination: LUE: AIN/PIN/Radial/Ulnar/Median motor intact. Radial/Ulnar/Median SILT. 2+/4 Radial/Ulnar pulses palpated. 5/5 APB, 5/5 FDI. Volar incision well healed. Wrist F/E 50/40. Supination/pronation 45/45. Healed scar over ulnar aspect of wrist from site of open injury. Positive tinels over site on dorsal wrist at location of laceration in the dorsal ulnar cutaneous branch nerve distribution. No intrinsic waisting or atrophy appreciated. EMG/NCV: EMG/NCV of left upper extremity demonstrates right ulnar nerve compression at the elbow Impression: 1.) Left cubital tunnel syndrome 2.) S/P left open distal radius ORIF 3.) Possible neuroma of dorsal sensory branch of ulnar nerve at site of open fracture Plan: Diagnosis and treatment options were discussed with the patient. We discussed he has signs and symptoms of cubital tunnel syndrome after his open distal radius fracture. We discussed he also could be experiencing neuroma formation of the dorsal ulnar sensory branch at the site of his open fracture. I recommend surgical intervention since his symptoms continue to worsen in the form of left open cubital tunnel release with possible anterior transposition and ulnar nerve neurolysis vs neuroplasty at level of the wrist with possible Axogen nerve protector application. Risks and benefits of surgery including bleeding, infection, damage to surrounding tissue, need for further surgery, residual numbness were discussed and the patient wished to go forward with surgery. -Eliazar Bustillo DO Orthopedic Hand/Upper Extremity Surgeon Past Medical History Past Medical History: Chest Pain / Angina, Diabetes Mellitus, GERD/Reflux, Hearing Disorder / Deafness, Hyperlipidemia, Hypertension, Prostate Disorder Additional Past Medical History / Comment(s): blood clot in splenic vein, pancreatitis, constipation, cyst on pancreas History of Any Multi-Drug Resistant Organisms: None Reported Past Surgical History: Back Surgery, Tonsillectomy Additional Past Surgical History / Comment(s): back surgery x 5 (Fusion,laminectomy,cage), Myelogram X 4 pre surgical Past Anesthesia/Blood Transfusion Reactions: No Reported Reaction Past Psychological History: No Psychological Hx Reported Smoking Status: Former smoker Past Alcohol Use History: None Reported Additional Past Alcohol Use History / Comment(s): STARTED SMOKING AGE 19 quit smoking AGE 41, smoked APPROX 1PPD Past Drug Use History: None Reported - Past Family History Mother Family Medical History: No Reported History Medications and Allergies Home Medications Medication Instructions Recorded Confirmed Type Apixaban [Eliquis] 5 mg PO BID 10/02/20 05/21/22 History Atorvastatin [Lipitor] 80 mg PO HS 10/02/20 05/21/22 History Ferrous Sulfate [Iron (65 MG 325 mg PO DAILY 10/02/20 05/21/22 History Elemental)] Sennosides [Senna] 8.6 mg PO HS 10/02/20 05/21/22 History oxyCODONE-APAP 10-325MG [Percocet 1 tab PO QID PRN 10/02/20 05/21/22 History 10-325 mg] traZODone HCL 100 mg PO HS PRN 10/02/20 05/21/22 History Omeprazole [PriLOSEC] 20 mg PO DAILY 02/25/21 05/21/22 History metFORMIN HCL [Glucophage] 500 mg PO DAILY 02/14/22 05/21/22 History Omeprazole [PriLOSEC] 40 mg PO HS 05/21/22 05/21/22 History Allergies Allergy/AdvReac Type Severity Reaction Status Date / Time hydrocodone bitartrate Allergy Rash/Hives Verified 05/21/22 15:11 [From Vicodin] Physical Examination Osteopathic Statement: *. No significant issues noted on an osteopathic structural exam other than those noted in the History and Physical/Consult.
[~2022-05-26 12:05] MED LIST changes: -ACETAMINOPHEN TAB 500 MG TAB PO PRN; +DEXAMETHASONE SOD PHOSPHATE 4 MG/ML 1 ML VIAL IV ONE; -GABAPENTIN 300 MG CAP PO PRN; +LACTATED RINGERS 1,000 ML IV SCH; +LIDOCAINE 1% (10MG/ML) FOR IV START INTRADERMA PRN; +ONDANSETRON 4 MG/2 ML VIAL IVP ONE; -ONDANSETRON 4 MG/2 ML VIAL IVP PRN; -TRANEXAMIC ACID IN NACL,ISO-OS 1,000 MG in SALINE 1 100ML.BAG IVPB PRN; +fentaNYL (PF) 50 MCG/ML 2 ML AMP IV PRN
[2022-05-26] MEDS ORDERED: LACTATED RINGERS 1,000 ML IV ONE ×2 (12:39→15:11)
[2022-05-26 12:45] LABS: Glucose,Whole Blood 116 mg/dL (70-110)
--- NOTE | 2022-05-26 12:58 | P.HPOR ---
History of Present Illness H&P Date: 05/26/22 Chief Complaint: Right cubital tunnel syndrome, right ulnar nerve sensory ne uroma Chief Complaint: Left cubital tunnel syndrome, left ulnar nerve neuroma Subjective: This is a 71 year old male that presents today for follow up evaluation regarding right hand paresthesias. He sustained an open comminuted intra- articular distal radius fracture on 02/14/22 and underwent urgent distal radius fracture ORIF and I&D of his open fracture . He notes about 2 weeks after he started to notice numbness and tingling mainly isolated to the ring and small fingers. He denies any paresthesias prior to surgery or immediately after. He states the pain and numbness radiates from the medial elbow down to the fingertips of the ring and small fingers. He also notes extreme sensitivity around the area of the laceration at the ulnar wrist which sends shocks and stabbing pain towards the back of the hand along the small and ring fingers. He states it effects his sleep and is getting worse. Physical Examination: RUE: AIN/PIN/Radial/Ulnar/Median motor intact. Radial/Ulnar/Median SILT. 2+/4 Radial/Ulnar pulses palpated. 5/5 APB, 5/5 FDI. Volar incision well healed. Wrist F/E 50/40. Supination/pronation 45/45. Healed scar over ulnar aspect of wrist from site of open injury. Positive tinels over site on dorsal wrist at location of laceration in the dorsal ulnar cutaneous branch nerve distribution. No intrinsic waisting or atrophy appreciated. EMG/NCV: EMG/NCV of right upper extremity demonstrates right ulnar nerve compression at the elbow Impression: 1.) Right cubital tunnel syndrome 2.) S/P Right open distal radius ORIF 3.) Possible neuroma of dorsal sensory branch of ulnar nerve at site of open fracture Plan: Diagnosis and treatment options were discussed with the patient. We discussed he has signs and symptoms of cubital tunnel syndrome after his open distal radius fracture. We discussed he also could be experiencing neuroma formation of the dorsal ulnar sensory branch at the site of his open fracture. I recommend surgical intervention since his symptoms continue to worsen in the form of right open cubital tunnel release with possible anterior transposition and ulnar nerve neurolysis vs neuroplastyat level of the wrist with possible Axogen nerve protector application. Risks and benefits of surgery including bleeding, infection, damage to surrounding tissue, need for further surgery, residual numbness were discussed and the patient wished to go forward with surgery. -Eliazar Bustillo DO Orthopedic Hand/Upper Extremity Surgeon Past Medical History Past Medical History: Chest Pain / Angina, Diabetes Mellitus, GERD/Reflux, Hearing Disorder / Deafness, Hyperlipidemia, Hypertension, Prostate Disorder Additional Past Medical History / Comment(s): blood clot in splenic vein, pancreatitis, constipation, cyst on pancreas History of Any Multi-Drug Resistant Organisms: None Reported Past Surgical History: Back Surgery, Tonsillectomy Additional Past Surgical History / Comment(s): back surgery x 5 (Fusion,laminectomy,cage), Myelogram X 4 pre surgical Past Anesthesia/Blood Transfusion Reactions: No Reported Reaction Past Psychological History: No Psychological Hx Reported Smoking Status: Former smoker Past Alcohol Use History: None Reported Additional Past Alcohol Use History / Comment(s): STARTED SMOKING AGE 19 quit smoking AGE 41, smoked APPROX 1PPD Past Drug Use History: None Reported - Past Family History Mother Family Medical History: No Reported History Medications and Allergies Home Medications Medication Instructions Recorded Confirmed Type Apixaban [Eliquis] 5 mg PO BID 10/02/20 05/21/22 History Atorvastatin [Lipitor] 80 mg PO HS 10/02/20 05/21/22 History Ferrous Sulfate [Iron (65 MG 325 mg PO DAILY 10/02/20 05/21/22 History Elemental)] Sennosides [Senna] 8.6 mg PO HS 10/02/20 05/21/22 History oxyCODONE-APAP 10-325MG [Percocet 1 tab PO QID PRN 10/02/20 05/26/22 History 10-325 mg] traZODone HCL 100 mg PO HS PRN 10/02/20 05/21/22 History Omeprazole [PriLOSEC] 20 mg PO DAILY 02/25/21 05/21/22 History metFORMIN HCL [Glucophage] 500 mg PO DAILY 02/14/22 05/26/22 History Omeprazole [PriLOSEC] 40 mg PO HS 05/21/22 05/21/22 History Allergies Allergy/AdvReac Type Severity Reaction Status Date / Time hydrocodone bitartrate Allergy Rash/Hives Verified 05/26/22 12:30 [From Vicodin] Physical Examination Osteopathic Statement: *. No significant issues noted on an osteopathic structural exam other than those noted in the History and Physical/Consult. Results - Labs Labs: Abnormal Lab Results - Last 24 Hours (Table) 05/26/22 Range/Units 12:42 POC Glucose (mg/dL) 116 H (70-110) mg/dL
[2022-05-26] MEDS ORDERED: LIDOCAINE 2% INJ 20 MG/ML (2 ML VIAL) ONE (13:34)
[2022-05-26] MEDS ORDERED: ePHEDrine 50 MG/ML 1 ML VIAL ONE (13:34)
[2022-05-26] MEDS ORDERED: fentaNYL (PF) 50 MCG/ML 2 ML AMP ONE (13:34)
[2022-05-26] MEDS ORDERED: PROPOFOL 10 MG/ML 20 ML VIAL IV ONE (13:34)
[2022-05-26] MEDS ORDERED: MIDAZOLAM 2 MG/2 ML VIAL ONE (13:34)
[2022-05-26] MEDS ORDERED: BUPIVACAINE (PF) 0.5% 30 ML VIAL SQ ONE (14:15)
[2022-05-26 15:30] VITALS: TEMP 96.8
[2022-05-26 16:01] VITALS: RESP 16
[2022-05-26 16:15] VITALS: BP 126/85; PULSE 66
--- NOTE | 2022-05-26 17:46 | P.OP ---
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 Procedure(s) Performed: 1.) Right open cubital tunnel release at elbow (96418) 2.) Right ulnar nerve dorsal sensory branch neurolysis at level of wrist with application of Axogen nerve protector ([id number]) Implants: Axogen Axoguard Nerve Protector Anesthesia: GETA Surgeon: Eliazar Bustillo Roadmaster #1: Harish Resendiz Estimated Blood Loss (ml): 10 Pathology: none sent Condition: stable Disposition: PACU Operative Findings: This is a 71 year old male who presented today for a right open cubital tunnel release and wound exploration with possible neurolysis of the dorsal sensory branch of the ulnar nerve after having failed conservative treatment. Risks and benefits of surgery were discussed with the patient including bleeding, damage to surrounding tissue, infection, need for further surgery as well as risks of anesthesia including pulmonary embolism and even and the patient wished to proceed with surgical intervention. The patient was seen in the pre-operative area by myself. Consent and H&P were completed and updated. The correct extremity was marked in the pre-operative area by myself and all other questions were answered. Operative Narrative: The patient was brought to the operating room by the department of anesthesia. They remained on the portable stretcher and a rolling hand table was brought to the side of the operative extremity. Pre-operative time out was performed indicating the correct patient, procedure and laterality. All in the room agreed. Pre-operative antibiotics were given prior to skin incision. The patient was then drifted off to sleep by the department of anesthesia. A nonsterile tourniquet was then applied to the operative extremity and the right upper extremity was then prepped and draped in normal sterile fashion. The operative extremity was the exsanguinated with an esmarch bandage and the tourniquet was inflated to 250mmHg. Attention was brought to the medial elbow. 15 blade scalpel was used to incise skin in between the medial epicondyle and olecranon in a curvlinear and longitudinal fashion. Blunt dissection was taken down through subcutaneous tissue with tenotomy scissors and branches of the MABCN were identified and protected. Dissection was carried proximally and the ulnar nerve was identified and released from surrounding proximal attachments near the Alex[place] of [place], the nerve appeared healthy at this level. Dissection was then carried distally and the patient was found to have a robust anconeus epitrochlearis muscle superficial to ross's ligament were were both released at the medial epicondy le, the nerve appeared compressed at this location. Dissection was then carried out further distal and the superficial and deep fascia of the two heads of the FCU were incised and the ulnar nerve was decompressed with Neva and tenotomy scissors and appeared to be tension free. The elbow was the flexed and extended and the ulnar nerve appeared to be stable in a tension free manner. 0.5% bupivacaine was injected into the subcutaneous tissues. Skin closure was performed with interrupted 4-0 Monocryl sutures followed by running 4-0 Monocyl suture. Attention was then drawn to the dorsal ulnar aspect of the wrist. Site of maximum irritation with positive tinels was marked in the pre-op area. This happened to be at the distal end of the scar from the patients previous open distal radius fracture. 15 blade scalpel was utilized to incise the skin over the area of the tender marked spot in a 45 degree Randolph type fashion taking care to not incise directly over the site of the possible neuroma. Blunt dissection was taken down to subcutaneous tissues and upon dissection the dorsal ulnar sensory branch was immediately identified and appeared very thin and flattened and circumstantially encased in scar tissue. No formal neuroma was identified. The scar surrounding the nerve was freed and external neurolysis was performed. After the nerve was freed from all adhesions an Agoxen 5x4mm Axoguard NerveProtector was then used to wrap the nerve circumstantially in a tension free manner. Under loupe magnification and with microvascular instrumentation several 8-0 nylon sutures were used connect the ends of the nerve protector in a tension free manner. The wound was then irrigated and closure was performed with interrupted and running 4-0 nylon suture. Tourniquet was then let down and the hand had immediate perfusion. 20cc's of 0.5% bupivicaine was injected near the medial elbow and dorsal radial wrist incision. Sterile dressing consisting of mastisol and steri strips was applied to the elbow. Large bulky soft dressing was applied with fluffs, 4x4s, cast padding and an adria wrap. The patient was then woken by the department of anesthesia and transferred to PACU in stable condition. Harish AIKEN was present to assist in major portions of the case including protection of vital neurovascular structures and retraction. Eliazar Bustillo D.O. Orthopedic Hand/Upper Extremity Surgeon
== END 2022-05-26 16:55 | disposition home or self-care (01) ==
LOC: OR 12:05
PROVIDERS: ATTEND Orthopaedic Surgery Hand Surgery
DX: G56.21 Lesion of ulnar nerve, right upper limb (principal); G56.01 Carpal tunnel syndrome, right upper limb; E11.9 Type 2 diabetes mellitus without complications; K21.9 Gastro-esophageal reflux disease without esophagitis; I10 Essential (primary) hypertension; E78.5 Hyperlipidemia, unspecified; Z87.891 Personal history of nicotine dependence; Z79.01 Long term (current) use of anticoagulants; Z79.84 Long term (current) use of oral hypoglycemic drugs; Z88.5 Allergy status to narcotic agent
CPT/HCPCS: 64718; 64719; J1100; J0690; J2405

== ENCOUNTER → 2022-05-27 | Outpatient (CLI) | payer MEDICARE ==
--- NOTE | 2022-05-27 15:19 | P.SLEEP ---
History of Present Illness DATE: 05/27/2022 CONSULTATION/NEW PATIENT EVALUATION HISTORY OF PRESENT ILLNESS/SLEEP-WAKE EVALUATION: 71-year-old gentleman had been evaluated in the sleep center for possible obstructive sleep apnea hypopnea syndrome. SLEEP SCHEDULE: Usually sleep schedule from 9:3011:30 PM to 810 AM. FALLING ASLEEP: Patient has problems with falling asleep, has TV set in bedroom. DURING SLEEP: Patient snores, wakes up from sleep up to 10 times with 4 episodes of nocturia. No history of hypnogogical hallucinations, sleep paralysis, or cataplexy. DURING THE DAY/WAKE STATE: In the morning patient wake up tired. [place] sleepiness scale is 5. Patient takes 1 nap around 2 PM. PAST MEDICAL HISTORY: Abdominal aortic aneurysm, acid reflux, back problems, BPH, prediabetes, hyperlipidemia, pancreatitis, nasal fracture, closed head injury. PAST SURGICAL HISTORY: Back surgery 5, hand surgery, sinoplasty. MEDICATIONS: Percocet, Prilosec 20 mg once a day, metformin 500 mg once a day, trazodone 100 mg 2 tablets at night, Eliquis 5 mg twice a day, Lipitor 80 mg once a day, Senokot twice a day, iron supplement. SOCIAL HISTORY: Positive history of smoking for 30 pack years, quit, alcohol consumption occasional. FAMILY HISTORY: Emphysema. REVIEW OF SYSTEMS: Multiple awakenings from sleep, difficulties to initiate sleep. No fevers. No double vision. No recent chest pain. No shortness of breath. No abdominal pain. No bleeding episodes. No blood in urine. No seizure episodes. PHYSICAL EXAMINATION: GENERAL: A pleasant patient without any distress. VITAL SIGNS: BP 105/66, HR 68, RR 16, weight 187.2 pounds, height 5 foot 9-1/4 inches, body mass index 27.4. HEENT: PERRLA, EOMI. Evaluation of oropharynx showed tongue protrudes midline, low position of soft palate Mallampati 4. NECK: Supple. No JVD. Thyroid is not palpable. 17 inches in circumference. LUNGS: Clear to percussion and to auscultation. Good air exchange. No wheezing or rhonchi. HEART: S1, S2 regular. No murmurs, gallops or rubs. ABDOMEN: Soft and nontender. Bowel sounds are present. No organomegaly appreciated. EXTREMITIES: No clubbing or cyanosis. 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 Cranial nerves 2 to 7 intact. There is no fasciculation or atrophy noted. No focal deficits observed. ASSESSMENT: 1. Multiple awakenings from sleep, snoring, low position of soft palate Mallampati 4, wide neck 17 inches in circumference, sleepiness patient takes naps. Obstructive sleep apnea-hypopnea syndrome. 2. Abdominal aortic aneurysm. 3. BPH. 4. Back problems, status post multiple back surgeries. 5. Prediabetes. 6 . Acid reflux. 7. Hyperlipidemia. 8. History of pancreatitis. 9 . Status post nasal fracture and nasal surgery. 10. Status post closed head injury. 11. Insomnia with difficulties to initiate sleep PLAN: 1. Polysomnography for evaluation of patient's breathing during sleep. 2. CPAP/BiPAP titration if sleep study confirms obstructive sleep apnea- hypopnea syndrome. 3. Preferable position during sleep on the side. 4. No driving if patient feels any sleepiness. Patient is aware of civil and criminal liability for unsafe driving. 5. Sleep hygiene with regular sleep time for at least 7.5-8 hours. 6. Watching weight. 7. I discussed with patient the psychological techniques for treatment of insomnia including stimulus control, paradoxical intention. Thank you very much for referring this patient for consultation. Sincerely, Liang Hills MD, PhD, FAASM. Diplomat of [place] [employer], Sleep Medicine Board by [place] [employer] [place] [employer] [facility] [employer] [facility] [place] Past Medical History Past Medical History: Chest Pain / Angina, Diabetes Mellitus, GERD/Reflux, Hearing Disorder / Deafness, Hyperlipidemia, Hypertension, Prostate Disorder Additional Past Medical History / Comment(s): blood clot in splenic vein, pancreatitis, constipation, cyst on pancreas History of Any Multi-Drug Resistant Organisms: None Reported Past Surgical History: Back Surgery, Tonsillectomy Additional Past Surgical History / Comment(s): back surgery x 5 (Fusion,laminectomy,cage), Myelogram X 4 pre surgical Past Anesthesia/Blood Transfusion Reactions: No Reported Reaction Past Psychological History: No Psychological Hx Reported Smoking Status: Former smoker Past Alcohol Use History: None Reported Additional Past Alcohol Use History / Comment(s): STARTED SMOKING AGE 19 quit smoking AGE 41, smoked APPROX 1PPD Past Drug Use History: None Reported - Past Family History Mother Family Medical History: No Reported History Medications and Allergies Home Medications Medication Instructions Recorded Confirmed Type Apixaban [Eliquis] 5 mg PO BID 10/02/20 05/21/22 History Atorvastatin [Lipitor] 80 mg PO HS 10/02/20 05/21/22 History Ferrous Sulfate [Iron (65 MG 325 mg PO DAILY 10/02/20 05/21/22 History Elemental)] Sennosides [Senna] 8.6 mg PO HS 10/02/20 05/21/22 History oxyCODONE-APAP 10-325MG [Percocet 1 tab PO QID PRN 10/02/20 05/26/22 History 10-325 mg] traZODone HCL 100 mg PO HS PRN 10/02/20 05/21/22 History Omeprazole [PriLOSEC] 20 mg PO DAILY 02/25/21 05/21/22 History metFORMIN HCL [Glucophage] 500 mg PO DAILY 02/14/22 05/26/22 History Omeprazole [PriLOSEC] 40 mg PO HS 05/21/22 05/21/22 History Allergies Allergy/AdvReac Type Severity Reaction Status Date / Time hydrocodone bitartrate Allergy Rash/Hives Verified 05/26/22 12:30 [From Vicodin] Sleep Note - Sleep Note Sleep Note: Temperature: Pulse Rate: Respiratory Rate: Blood Pressure: SpO2: Height: Weight: BMI: Neck Circumference:
== END ==
LOC: SLEEP 13:26
PROVIDERS: ATTEND Internal Medicine
DX: G47.33 Obstructive sleep apnea (adult) (pediatric) (principal); N40.0 Benign prostatic hyperplasia without lower urinary tract symptoms; M54.9 Dorsalgia, unspecified; K21.9 Gastro-esophageal reflux disease without esophagitis; E78.5 Hyperlipidemia, unspecified; I71.40 Abdominal aortic aneurysm, without rupture, unspecified; Z98.890 Other specified postprocedural states; Z87.820 Personal history of traumatic brain injury; Z99.89 Dependence on other enabling machines and devices; E11.9 Type 2 diabetes mellitus without complications; Z79.84 Long term (current) use of oral hypoglycemic drugs; Z88.5 Allergy status to narcotic agent
CPT/HCPCS: 99211

== ENCOUNTER → 2022-06-03 | Outpatient (CLI) | payer MEDICARE ==
--- NOTE | 2022-06-03 20:34 | MR ---
EXAMINATION TYPE: MR shoulder RT wo con DATE OF EXAM: 06/03/2022 COMPARISON: Outside right shoulder x-ray May 21, 2022 HISTORY: Right shoulder pain difficulty raising arm overhead due to fall off ladder one year earlier. TECHNIQUE: Multiplanar, multisequence imaging of the right shoulder is performed without contrast. FINDINGS: Rotator Cuff: Small focal tear articular surface distal supraspinatus tendon measures 5 mm AP diamete r sagittal image 7 correlates with coronal image 9. Infraspinatus tendon intact. Rotator cuff muscle bulk preserved. Acromioclavicular Joint: Mild to moderate capsular hypertrophy and mild spurring. Mass effect on supe rior aspect of the supraspinatus muscle sagittal image 18 for reference. Glenohumeral Joint: Subchondral cystic change involving the superior portion of the osseous glenoid g reatest posteriorly. No significant effusion. Labrum: The superior labrum shows increased signal coronal image 14 for reference consistent with deg enerative tearing. Biceps Tendon: The long head of biceps is in normal location within bicipital groove. Bone marrow signal: Additional heterogeneous lesion of low T1 and increased T2 signal superior medial humeral head axial image 14. Smaller subchondral cystic change posterior superior humeral head. Other: No additional significant abnormality is appreciated. IMPRESSION: Small focal articular surface tear of the distal supraspinatus tendon. Degenerative jones es as detailed above with suggestion of underlying impingement, correlate clinically.
== END | disposition home or self-care (01) ==
LOC: RADMRIMAIN 13:02
PROVIDERS: ATTEND Orthopaedic Surgery
DX: M19.011 Primary osteoarthritis, right shoulder (principal); M75.111 Incomplete rotator cuff tear or rupture of right shoulder, not specified as traumatic

== ENCOUNTER → 2022-08-10 | Outpatient (CLI) | payer MEDICARE ==
[2022-08-10 19:48] LABS: Basophils # (A) 0.04 X 10*3/uL (0.00-0.10); Basophils % (A) 0.5 %; Eosinophils # (A) 0.11 X 10*3/uL (0.04-0.35); Eosinophils % (A) 1.5 %; HCT 35.5 % (39.6-50.0); HGB 11.1 g/dL (13.0-17.0); Immature Grans, Automated 0.5 %; Lymphocytes # (A) 1.15 X 10*3/uL (0.90-5.00); Lymphocytes % (A) 15.7 %; MCH 30.6 pg (27.0-32.0); MCHC 31.3 g/dL (32.0-37.0); MCV 97.8 fL (80.0-97.0); Mean Platelet Volume 8.7 fL (9.5-12.2); Monocytes # (A) 0.52 X 10*3/uL (0.20-1.00); Monocytes % (A) 7.1 %; NRBC Per 100 WBC 0 /100 WBCS (0.0-0.0); Neutrophils # (A) 5.48 X 10*3/uL (1.80-7.70); Neutrophils % (A) 74.7 %; Platelet Count 425 X 10*3/uL (140-440); RBC 3.63 X 10*6/uL (4.40-5.60); RDW 14.6 % (11.5-14.5); WBC 7.34 X 10*3/uL (4.50-10.00)
[2022-08-10 19:52] LABS: Anion Gap 10.6 mmol/L (10.00-18.00); Carbon Dioxide 26.4 mmol/L (20.0-27.5)
== END | disposition home or self-care (01) ==
LOC: LABPAT 13:12
PROVIDERS: ATTEND Orthopaedic Surgery
DX: Z01.812 Encounter for preprocedural laboratory examination (principal); M75.42 Impingement syndrome of left shoulder
CPT/HCPCS: 80051; 85025

== ENCOUNTER → 2022-08-12 | Outpatient (CLI) | payer MEDICARE ==
[2022-08-12 12:01] LABS: African American GFR (CKD) >90 (>60 ml/min/1.73 sqM); Albumin 3.9 g/dL (3.5-5.0); Anion Gap 4 mmol/L; Blood Urea Nitrogen 16 mg/dL (9-20); Calcium 9.1 mg/dL (8.4-10.2); Carbon Dioxide 31 mmol/L (22-30); Chloride 102 mmol/L (98-107); Glucose 141 mg/dL (74-99); Non-African American GFR(CKD) >90 (>60 ml/min/1.73 sqM); Phosphorus 3.4 mg/dL (2.5-4.5); Potassium 4.5 mmol/L (3.5-5.1); Sodium 137 mmol/L (137-145)
== END | disposition home or self-care (01) ==
LOC: LABWHC1 11:00
PROVIDERS: ATTEND Nurse Practitioner Family
DX: K86.2 Cyst of pancreas (principal)
CPT/HCPCS: 36415; 80069

== ENCOUNTER → 2022-08-12 | Outpatient (CLI) | payer MEDICARE ==
--- NOTE | 2022-08-12 14:08 | CT ---
EXAMINATION TYPE: CT abdomen w con DATE OF EXAM: 08/12/2022 COMPARISON: 06/28/2022 HISTORY: pseudocyst of pancreas. pt states he had stents place in pancreas in may 2022. CT DLP: 1115 mGycm Automated exposure control for dose reduction was used. TECHNIQUE: Helical acquisition of images was performed from the lung bases through the top of iliac crest to include entire abdomen. CONTRAST: Performed without Oral Contrast and with IV Contrast, patient injected with 100 mL of Isovue 370. FINDINGS: LUNG BASES: Heart size is prominent and is tiny pericardial effusion. Mild emphysematous changes invo lving LIVER/GB: No significant abnormality is appreciated. PANCREAS: There is either atrophy or previous pancreatectomy in the pancreas. There remains a drainag e catheter extending from the stomach into the pancreas near complete resolution of the large pancrea tic pseudocyst.. SPLEEN: No significant abnormality is seen. ADRENALS: There is a low density lesion involving the right adrenal gland measuring 17 Hounsfield uni ts and 1.8 cm and appears stable prior exam. Indeterminant by Hounsfield unit measurement. KIDNEYS: No hydronephrosis. There are subcentimeter low-density lesions in both kidneys too small to characterize. BOWEL: No significant abnormality is seen. LYMPH NODES: No significant abnormality is seen. OSSEOUS STRUCTURES: Postsurgical changes involving the pelvis and vertebral column with multilevel d egenerative disc disease vertebral plasty is seen involving L1 vertebral segments demonstrates severe compression fracture. OTHER: There is a 4.3 x 4.1 infrarenal abdominal aortic aneurysm extending to the aortic bifurcation. Atherosclerotic changes of the aorta and its branch vessels noted. IMPRESSION: 1. INTERVAL NEAR COMPLETE RESOLUTION OF PANCREATIC PSEUDOCYST. MINIMAL RESIDUAL ATTENUATION INFLAMMAT ORY CHANGES NOTED. 2. INFRARENAL ABDOMINAL AORTIC ANEURYSM EXTENDING THE AORTIC BIFURCATION MEASURING 4.1 X 4.3 CM
== END | disposition home or self-care (01) ==
LOC: RADCTMAIN 11:25
PROVIDERS: ATTEND Internal Medicine Gastroenterology
DX: I71.43 Infrarenal abdominal aortic aneurysm, without rupture (principal); K86.3 Pseudocyst of pancreas
CPT/HCPCS: 74160; Q9967

== ENCOUNTER 2022-08-25 09:49 | Day surgery (SDC) | payer MEDICARE ==
[~2022-08-25 09:49] MED LIST changes: -DEXAMETHASONE SOD PHOSPHATE 4 MG/ML 1 ML VIAL IV ONE; -ONDANSETRON 4 MG/2 ML VIAL IVP ONE; -fentaNYL (PF) 50 MCG/ML 2 ML AMP IV PRN
[2022-08-25 10:18] VITALS: TEMP 97
[2022-08-25 10:19] LABS: Glucose,Whole Blood 118 mg/dL (70-110)
[2022-08-25] MEDS ORDERED: PROPOFOL 10 MG/ML 20 ML VIAL IV ONE (10:31)
[2022-08-25] MEDS ORDERED: LIDOCAINE 2% INJ 20 MG/ML (2 ML VIAL) ONE (10:31)
--- NOTE | 2022-08-25 10:45 | P.PCN ---
Date of Procedure: 08/25/22 Procedure(s) Performed: BRIEF HISTORY: Patient is a 72-year-old, pleasant, white male scheduled for an upper endoscopy as a part of evaluation of persistent epigastric pain for the last several months duration. He had history of acute severe active colitis in August 2020 that was coffee treated with a large one of necrosis for which she underwent endoscopic ultrasound and stent placement for drainage of 3 months ago. Repeat CAT scan done 2 weeks ago did not show any residual pancreas pseudocyst. Because of the persistent epigastric pain is scheduled for an upper endoscopy to evaluate further. PROCEDURE PERFORMED: Esophagogastroduodenoscopy with biopsy. PREOPERATIVE DIAGNOSIS: Chronic epigastric pain. IV sedation per anesthesia. PROCEDURE: After informed consent was obtained, the patient was brought into the endoscopy unit. IV sedation was administered by Anesthesia under continuous monitoring. Initially the Olympus GIF-140 video endoscope was inserted into the mouth. Esophagus intubated without any difficulty. It was gradually advanced into the stomach and duodenum and carefully examined. The bulb and the second part of the duodenum appeared normal. The scope at this time was withdrawn to the stomach, adequately insufflated with air, and upon careful examination, mucosa of the antrum had mild gastritis and biopsies were done from this area. There was a stent noted in the proximal body the stomach and the site of previous and chronic cyst drainage. The rest of the mucosa of the, body, cardia and the fundus appeared normal. The scope was then withdrawn into the esophagus. The GE junction was located at 39 cm from the incisors. Small island of Deng's appearing mucosa measuring about 3-4 mm in size and a small tongue measuring to 6 mm in size just proximal to the GE junction was noted which was biopsied. The rest of the esophagus appeared normal. There were no erosions or ulcerations seen and the patient tolerated the procedure well. IMPRESSION: 1. Plastic pigtail stent noted in the proximal gastric body at the site of pancreatic cyst drainage. 2. Mild antral gastritis 3. Short segment Deng's esophagus. RECOMMENDATIONS: The findings of this examination were discussed with the patient as well as his family. He was advised to follow with the biopsy results. In the meantime he will continue with omeprazole 20 mg twice daily and follow antireflux measures..
[2022-08-25 11:15] VITALS: BP 146/88; PULSE 55; RESP 16
== END 2022-08-25 11:40 | disposition home or self-care (01) ==
LOC: ORWHC2ENDO 09:49
PROVIDERS: ATTEND Internal Medicine Gastroenterology
DX: K29.50 Unspecified chronic gastritis without bleeding (principal); K86.2 Cyst of pancreas; I10 Essential (primary) hypertension; E78.5 Hyperlipidemia, unspecified; E11.9 Type 2 diabetes mellitus without complications; N40.0 Benign prostatic hyperplasia without lower urinary tract symptoms; K21.9 Gastro-esophageal reflux disease without esophagitis; Z87.891 Personal history of nicotine dependence; Z79.899 Other long term (current) drug therapy; Z79.84 Long term (current) use of oral hypoglycemic drugs
CPT/HCPCS: 88305; 43239; J2704; J2001

== ENCOUNTER 2022-09-02 05:35 | Day surgery (SDC) | payer MEDICARE ==
[2022-08-30 13:14] VITALS: BMI 26.9
--- NOTE | 2022-09-01 14:12 | HP ---
HISTORY AND PHYSICAL DATE OF SCHEDULED SURGERY: 09/02/2022. HISTORY OF PRESENT ILLNESS: Jordi Adhikari is a 72-year-old gentleman seen with progressive right shoulder pain. We discussed options for treatment. He elected to proceed with arthroscopy. Consent regarding the procedure was obtained. PAST MEDICAL HISTORY: Emphysema, hyperlipidemia, [id number] diabetes, COPD, chronic low back pain. SURGICAL HISTORY: Neck surgery, lumbar spine surgery, SI joint fusion. DAILY MEDICATIONS: 1. Eliquis. 2. Lipitor. 3. Metformin. 4. Percocet. 5. Trazodone. ALLERGIES: Vicodin. SOCIAL HISTORY: Denies tobacco use. PHYSICAL EVALUATION OF THE RIGHT SHOULDER: Flexion is 120 degrees, abduction is 90 degrees, external rotation is 40 degrees with weakness. He has tenderness along the anterolateral acromion and rotator cuff insertion. Impingement is positive at 90 degrees. Cross-body adduction sign is positive. Drop-arm sign is positive. Distal neurovascular exam is intact. RADIOGRAPHS: Radiographs of the right shoulder revealed a type 2 acromion along with acromioclavicular joint osteoarthritis. Right shoulder MRI revealed a partial rotator cuff tear, impingement and labral tear. IMPRESSION: 1. Right shoulder impingement with partial rotator cuff tear. 2. Right shoulder acromioclavicular joint osteoarthritis. 3. Right shoulder labral tear. 4. Hypertension. 5. Hyperlipidemia. 6. COPD. PLAN: Right shoulder arthroscopy with subacromial decompression, arthroscopic rotator cuff repair, possible Alaina procedure and debridement. MMODL / IJN: [id number] /
[~2022-09-02 05:35] MED LIST changes: -LIDOCAINE 1% (10MG/ML) FOR IV START INTRADERMA PRN; +ONDANSETRON 4 MG/2 ML VIAL IVP ONE
[2022-09-02 06:39] LABS: Glucose,Whole Blood 136 mg/dL (70-110)
[2022-09-02 06:41] VITALS: RESP 16
[2022-09-02] MEDS ORDERED: DEXAMETHASONE SOD PHOSPHATE 4 MG/ML 1 ML VIAL IV ONE (06:46)
[2022-09-02] MEDS ORDERED: MIDAZOLAM HCL 10 MG/10 ML VIAL IV ONE (06:53)
[2022-09-02] MEDS ORDERED: HYDROmorphone 0.5 MG/0.5 ML SYRINGE IVP PRN (07:00)
[2022-09-02] MEDS ORDERED: fentaNYL (PF) 50 MCG/ML 2 ML AMP IV PRN (07:00)
[2022-09-02] MEDS ORDERED: DEXAMETHASONE SOD PHOSPHATE 4 MG/ML 1 ML VIAL ONE (07:22)
[2022-09-02] MEDS ORDERED: SUCCINYLCHOLINE CHLORIDE 200 MG/10 ML VIAL IV ONE (07:22)
[2022-09-02] MEDS ORDERED: ePHEDrine 50 MG/ML 1 ML VIAL ONE (07:22)
[2022-09-02] MEDS ORDERED: MIDAZOLAM 2 MG/2 ML VIAL ONE (07:22)
[2022-09-02] MEDS ORDERED: PROPOFOL 10 MG/ML 20 ML VIAL IV ONE (07:22)
[2022-09-02] MEDS ORDERED: ROPIVACAINE 5 MG/ML 30 ML VIAL ONE (07:22)
[2022-09-02] MEDS ORDERED: LIDOCAINE 2% INJ 20 MG/ML (2 ML VIAL) ONE (07:22)
[2022-09-02] MEDS ORDERED: LACTATED RINGERS 1,000 ML IV ONE (08:37)
--- NOTE | 2022-09-02 08:59 | P.OP ---
Date of Procedure: 09/02/22 Preoperative Diagnosis: Right shoulder impingement Postoperative Diagnosis: 1. Right shoulder rotator cuff tear 2. Right shoulder impingement 3. Right shoulder acromioclavicular joint osteoarthritis 4. Right shoulder partial long head biceps tendon tear 5. 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 Right shoulder arthroscopic rotator cuff repair 2. Right shoulder arthroscopic subacromial decompression 3. Right shoulder arthroscopic Alaina procedure 4. Right shoulder arthroscopic biceps tenotomy Implants: 1Arthrex 4.75 swivel lock anchor Anesthesia: GETA, regional (Interscalene block) Surgeon: Johnny Reyes Mechanical Design Engineer Facilities #1: Khadar Peters Estimated Blood Loss (ml): 10 Pathology: none sent Condition: stable Disposition: PACU Indications for Procedure: 72-year-old patient seen with progressive right shoulder pain. After treatment options were discussed, he elected to proceed with arthroscopy. Operative Findings: See description of procedure Description of Procedure: Patient underwent an interscalene block by department of anesthesia. The patient was then taken to the operative suite. The patient underwent a general anesthetic by the department of anesthesia. The patient was placed into a lateral position and secured. There was appropriate padding of the bony prominence. Right shoulder was then prepped and draped in normal sterile orthopedic fashion. We placed the extremity in 10 pounds of longitudinal traction. A posterior incision was now made for a posterior working portal site. The trocar and cannula were inserted into the glenohumeral joint. Arthroscopy was initiated. Spinal needle was now inserted anteriorly, to ascertain the anterior working portal site. An incision was now made in that area, a trocar was inserted followed by a probe. There were grade 2/3 chondromalacia changes involving both the humeral head and glenoid fossa. It appeared more predominantly along the central portion glenoid fossa. There were no osteochondral tears present. There was some superficial fraying of the superior labrum. There was some partial tearing and hyperemia long head biceps tendon. I performed an arthroscopic biceps tenotomy. I debrided that superficial labral tear getting down to stable labral tissue. The residual labrum was probed and was found to be stable. Instruments were now removed from glenohumeral joint. Utilizing the posterior working portal site, the trocar and cannula were inserted into the subacromial space. Arthroscopy initiated. I made an incision 2 fingerbreadths lateral to the acromion. I introduced my trocar followed by my ArthroCare ablator. I now began ablating thick subacromial bursal tissue, which exposed the undersurface of the anterior acromion. There was diminished subacromial space. There was a very prominent anterior acromion. A motorized bur was introduced and a subacromial decompression was performed. I also excised some osteophytes off the inferior aspect of the distal clavicle. The AC joint was visualized and noted to be fairly arthritic. The motorized bur was introduced in the anterior portal site and a Alaina procedure was performed without difficulty, decompressing the AC joint nicely. I turned my attention to the rotator cuff. There was a 1 cm tear involving the posterior aspect of the distal supraspinatus. I debrided the margins getting down to stable tendon tissue. The defect/tear measuring approximately 1.5 cm and was freely mobile over the footprint. I abraded the footprint with a motorized bur. With the assistance of Sanchez AIKEN I now passed 3 everted mattress sutures through good bites of rotator cuff tendon. I punched a hole in the footprint area for insertion of an anchor. All 6 limbs of suture were passed through the eyelet of a Arthrex 4.75 swivel lock anchor. I now placed the eyelet into our pre-punched hole. I held in position while Sanchez AIKEN tensioned all 6 limbs of suture and deployed the anchor with good fixation noted. All residual suture limbs were now clipped. We had good compression of the tendon along the entire footprint. Instruments now removed from the portal sites. All portal sites were approximated with nylon suture. Sterile dressings were applied followed by a shoulder sling. Khadar AIKEN assisted in this complex case. The patient was awakened, transferred to a bed, and taken to recovery in stable condition.
[2022-09-02 09:15] VITALS: TEMP 97
[2022-09-02 09:50] VITALS: BP 131/85; PULSE 63
--- NOTE | 2022-09-02 20:20 | P.ANPRN ---
Procedure Note - Anesthesia - Nerve Block Performed Right Interscalene Single Time Out Performed: Yes Date of Procedure: 09/02/22 Procedure Start Time: 06:52 Procedure Stop Time: 06:58 Location of Patient: PreOp Indication: Acute Post-Operative Pain, Requested by Surgeon Sedation Type: Sedate with meaningful contact maintained Preparation: Sterile Prep Position: Supine Needle Types: Pajunk Needle Gauge: 21 Ultrasound used to visualize needle placement: Yes Ultrasound used to observe medication spread: Yes Blood Aspirated: No Pain Paresthesia on Injection Noted: No Resistance on Injection: Normal Image Stored and Saved: Yes Events: Uneventful and Well Tolerated (Ropivacaine 0.5% 20 mL plus dexamethasone 4 mg)
== END 2022-09-02 10:20 | disposition home or self-care (01) ==
LOC: OR 05:35
PROVIDERS: ATTEND Orthopaedic Surgery
DX: M75.101 Unspecified rotator cuff tear or rupture of right shoulder, not specified as traumatic (principal); M19.011 Primary osteoarthritis, right shoulder; S46.111A Strain of muscle, fascia and tendon of long head of biceps, right arm, initial encounter; M75.41 Impingement syndrome of right shoulder; M94.211 Chondromalacia, right shoulder; G89.18 Other acute postprocedural pain; E78.5 Hyperlipidemia, unspecified; E11.9 Type 2 diabetes mellitus without complications; J44.9 Chronic obstructive pulmonary disease, unspecified; G89.29 Other chronic pain; Z98.890 Other specified postprocedural states; Z79.01 Long term (current) use of anticoagulants; Z79.84 Long term (current) use of oral hypoglycemic drugs; Z79.899 Other long term (current) drug therapy; Z88.5 Allergy status to narcotic agent
CPT/HCPCS: 29827; 29826; 29824; 64415; C1713 ×2; J2250 ×2; J0330; J1100; J0690; J2405; J2795; J2704; J2001

== ENCOUNTER 2022-10-10 18:47 | Emergency (ER) | payer MEDICARE ==
[2022-10-10 18:51] VITALS: PULSE 55; TEMP 98
--- NOTE | 2022-10-10 20:07 | XR ---
EXAMINATION TYPE: XR shoulder complete RT DATE OF EXAM: 10/10/2022 7:48 PM INDICATION: Patient age:Male; 72 years old; Reason for study: swelling; COMPARISON: Right shoulder radiographs 05/05/2022 TECHNIQUE: The right shoulder was examined in AP, internally rotated and scapular Y projections. . FINDINGS: No evidence of acute osseous pathology, joint dislocation, or soft tissue swelling. Degenerative silva ges of the right shoulder and acromioclavicular joint noted. The remaining portions of the visualized chest are unremarkable. IMPRESSION: 1. No acute osseous pathology. 2. Mild osteoarthritis of the right glenohumeral and acromioclavicular joints
[2022-10-10] MEDS ORDERED: HYDROmorphone 1 MG/ML 1 ML SYRINGE IM STA (20:10)
--- NOTE | 2022-10-10 21:29 | ED ---
Upper Extremity HPI - General Chief Complaint: Extremity Injury, Upper Stated Complaint: R shoulder injury Time Seen by Provider: 10/10/22 18:50 Source: patient Mode of arrival: ambulatory Limitations: no limitations - History of Present Illness Initial Comments: 72-year-old male presents to the emergency department reporting right shoulder pain. Patient is status post rotator cuff surgery with by tendon repair on September 02. He is right-hand dominant. He reports that on he woke from sleep and had significant pain in his right shoulder. Denies any known trauma. He does take Percocet at home however this was not touching his pain. He denies any fevers. No redness. He has been wearing his sling for comfort. He denies any numbness, tingling or weakness into his hand. No elbow pain. He does not take any blood thinners. No other alleviating, precipitating or modifying factors - Related Data Home Medications Medication Instructions Recorded Confirmed Apixaban [Eliquis] 5 mg PO BID 10/02/20 10/10/22 Atorvastatin [Lipitor] 80 mg PO HS 10/02/20 10/10/22 Ferrous Sulfate [Iron (65 MG 325 mg PO DAILY 10/02/20 10/10/22 Elemental)] Sennosides [Senna] 8.6 mg PO HS 10/02/20 10/10/22 oxyCODONE-APAP 10-325MG [Percocet 1 tab PO QID PRN 10/02/20 10/10/22 10-325 mg] Omeprazole [PriLOSEC] 20 mg PO DAILY 02/25/21 10/10/22 metFORMIN HCL [Glucophage] 500 mg PO DAILY 02/14/22 10/10/22 Omeprazole [PriLOSEC] 40 mg PO HS 05/21/22 10/10/22 Albuterol Inhaler [Ventolin Hfa 2 puff INHALATION RT-Q4H PRN 10/10/22 10/10/22 Inhaler] Budesonide/Formoterol Fumarate 2 puff INHALATION RT-BID 10/10/22 10/10/22 [Symbicort 160-4.5 Mcg Inhaler] Cholecalciferol [Vitamin D3 (25 25 mcg PO DAILY 10/10/22 10/10/22 Mcg = 1000 Iu)] Famotidine 40 mg PO HS 10/10/22 10/10/22 Ipratropium E[place]ka [Ipratropium 1 spray NASAL DAILY 10/10/22 10/10/22 [place] 0.03%] Melatonin 5 mg PO HS 10/10/22 10/10/22 Sertraline [Zoloft] 100 mg PO DAILY 10/10/22 10/10/22 Tamsulosin [Flomax] 0.4 mg PO DAILY 10/10/22 10/10/22 lisinopriL [Zestril] 5 mg PO DAILY 10/10/22 10/10/22 lisinopriL [Zestril] 10 mg PO DAILY 10/10/22 10/10/22 traZODone HCL 300 mg PO HS 10/10/22 10/10/22 Allergies Allergy/AdvReac Type Severity Reaction Status Date / Time hydrocodone bitartrate Allergy Rash/Hives, Verified 10/10/22 20:53 [From Vicodin] Itching Review of Systems ROS Statement: Those systems with pertinent positive or pertinent negative responses have been documented in the HPI. ROS Other: All systems not noted in ROS Statement are negative. Past Medical History Past Medical History: Chest Pain / Angina, Diabetes Mellitus, GERD/Reflux, Hearing Disorder / Deafness, Hyperlipidemia, Hypertension, Prostate Disorder Additional Past Medical History / Comment(s): blood clot in splenic vein, pancreatitis, constipation, cyst on pancreas History of Any Multi-Drug Resistant Organisms: None Reported Past Surgical History: Back Surgery, Tonsillectomy Additional Past Surgical History / Comment(s): back surgery x 5 (Fusion,laminectomy,cage), Myelogram X 4 pre surgical, colonoscopy Past Anesthesia/Blood Transfusion Reactions: No Reported Reaction Past Psychological History: No Psychological Hx Reported Smoking Status: Former smoker Past Alcohol Use History: Occasional Past Drug Use History: None Reported - Past Family History Mother Family Medical History: No Reported History General Exam Limitations: no limitations General appearance: alert, in no apparent distress Head exam: Present: atraumatic, normocephalic, normal inspection Eye exam: Present: normal appearance, PERRL, EOMI. Absent: scleral icterus, conjunctival injection, periorbital swelling ENT exam: Present: normal exam, mucous membranes moist Neck exam: Present: normal inspection. Absent: tenderness, meningismus, lymphadenopathy Respiratory exam: Present: normal lung sounds bilaterally. Absent: respiratory distress, wheezes, rales, rhonchi, stridor Cardiovascular Exam: Present: regular rate, normal rhythm, normal heart sounds. Absent: systolic murmur, diastolic murmur, rubs, gallop, clicks GI/Abdominal exam: Present: soft, normal bowel sounds. Absent: distended, tenderness, guarding, rebound, rigid Extremities exam: Present: tenderness (Patient has some overlying swelling to the right shoulder. No ecchymosis. He does have pain with greater than 90 of abduction and flexion. Equal convention manager strength. Intact motor strength in the median, radial, ulnar nerve groups. 2+ radial and ulnar pulses), normal capillary refill, joint swelling. Absent: pedal edema, calf tenderness Back exam: Present: normal inspection Neurological exam: Present: alert, oriented X3, CN II-XII intact Psychiatric exam: Present: normal affect, normal mood Skin exam: Present: warm, dry, intact, normal color. Absent: rash Course Vital Signs 10/10/22 10/10/22 18:48 21:23 Temperature 98 F Pulse Rate 55 L 55 L Respiratory 18 16 Rate Blood Pressure 127/70 113/76 O2 Sat by Pulse 96 99 Oximetry Medical Decision Making - Medical Decision Making Was pt. sent in by a medical professional or institution (, PA, GRAB SETTER, urgent care, hospital, or correction...) When possible be specific @ -No Did you speak to anyone other than the patient for history (EMS, parent, family, police, friend...)? What history was obtained from this source @ -No Did you review nursing and triage notes (agree or disagree)? Why? @ -I reviewed and agree with nursing and triage notes Were old charts reviewed (outside hosp., previous admission, EMS record, old EKG, old radiological studies, urgent care reports/EKG's, correction records)? Report findings @ -I reviewed the patient's operative note from September 02 Differential Diagnosis (chest pain, altered mental status, abdominal pain women, abdominal pain men, vaginal bleeding, weakness, fever, dyspnea, syncope, headache, dizziness, GI bleed, back pain, seizure, CVA, palpatations, mental health, musculoskeletal)? @ -Differential Musculoskeletal Muscular strain, contusion, ligament sprain, fracture, arthritis, septic arthritis, bursitis, cellulitis, muscle spasm, nerve compression, DVT, arterial occlusion, herpes zoster, electrolyte abnormality, tumor.... This is not meant to be in all inclusive list EKG interpreted by me (3pts min.). @ -Not done X-rays interpreted by me (1pt min.). @ -X-ray interpreted by me as negative for any acute process CT interpreted by me (1pt min.). @ -None done U/S interpreted by me (1pt. min.). @ -None done What testing was considered but not performed or refused? (CT, X-rays, U/S, labs)? Why? @ -None What meds were considered but not given or refused? Why? @ -None Did you discuss the management of the patient with other professionals (professionals i.e. Dr., PA, GRAB SETTER, lab, RT, psych nurse, healthcare social worker, fastener technologist, teacher, police officer booking, rehabilitation case coordinator)? Give summary @ -I spoke with Harish Resendiz in regards to the patient Was smoking cessation discussed for >3mins.? @ -No Was critical care preformed (if so, how long)? @ -No Were there social determinants of health that impacted care today? How? (Homelessness, low income, unemployed, alcoholism, drug addiction, transportation, low edu. Level, literacy, decrease access to med. care, [facility], rehab)? @ -No Was there de-escalation of care discussed even if they declined (Discuss DNR or withdrawal of care, Hospice)? DNR status @ -No What co-morbidities impacted this encounter? (DM, HTN, Smoking, COPD, CAD, Cancer, CVA, ARF, Chemo, Hep., AIDS, mental health diagnosis, sleep apnea, morbid obesity)? @ -None Was patient admitted / discharged? Hospital course, mention meds given and route, prescriptions, significant lab abnormalities, going to OR and other pertinent info. @ -Upon arrival patient was placed in room 19. Her history and physical exam was performed. X-ray was performed the patient's right shoulder which demonstrates no acute process. He was given 1 mg IM injection of Dilaudid. Reevaluated and does have improvement in his symptoms. Spoke with Harish Loyola. Patient will be seen on Tuesday by Dr. Dowling. He needs to call and make an appointment. He is to continue taking his Percocet for pain. May alternate this with Motrin. Return for any new or worsening symptoms. He was agreeable and discharged home in stable condition Undiagnosed new problem with uncertain prognosis? @ -Yes Drug Therapy requiring intensive monitoring for toxicity (Heparin, Nitro, Insulin, Cardizem)? @ -No Were any procedures done? @ -No Diagnosis/symptom? @ -Acute right shoulder pain, status post rotator cuff surgery Acute, or Chronic, or Acute on Chronic? @ -Acute Uncomplicated (without systemic symptoms) or Complicated (systemic symptoms)? @ -Uncomplicated Side effects of treatment? @ -Sedation, ALLERGIC reaction Exacerbation, Progression, or Severe Exacerbation? @ -No Poses a threat to life or bodily function? How? (Chest pain, [place], [place], pneumonia, PE, COPD, DKA, ARF, appy, cholecystitis, CVA, Diverticulitis, Homicidal, Suicidal, threat to staff... and all critical care pts) @ -No Disposition Clinical Impression: Right shoulder pain Disposition: HOME SELF-CARE Condition: Stable Instructions (If sedation given, give patient instructions): Shoulder Pain (ED) Additional Instructions: Please alternate taking your Percocet with Motrin every 4 hours. Call the office tomorrow. Dr. Dowling is in clinic on Tuesday and will see you then Is patient prescribed a controlled substance at d/c from ED?: No Referrals: Dennis Benjamin MD [Primary Care Provider] - 1-2 days Johnny Reyes DO [Family Provider] - 1-2 days Time of Disposition: 21:28
[2022-10-10 21:43] VITALS: BP 113/76; RESP 16
== END 2022-10-10 21:23 | disposition home or self-care (01) ==
LOC: EC 18:47
DX: M25.511 Pain in right shoulder (principal); E11.9 Type 2 diabetes mellitus without complications; K21.9 Gastro-esophageal reflux disease without esophagitis; E78.5 Hyperlipidemia, unspecified; I10 Essential (primary) hypertension; Z87.891 Personal history of nicotine dependence; Z79.84 Long term (current) use of oral hypoglycemic drugs; Z79.899 Other long term (current) drug therapy; Z88.5 Allergy status to narcotic agent
CPT/HCPCS: 73030; 99283; 96372; J1170

== ENCOUNTER 2022-10-19 05:47 | Day surgery (SDC) | payer MEDICARE ==
[2022-10-12 16:37] VITALS: BMI 26.5
--- NOTE | 2022-10-18 07:12 | P.HPOR ---
History of Present Illness H&P Date: 09/01/22 .D:Date: 09/01/22 : 05:02pm .T:Title: [facility] Date of :[birth year] R14 Allergies: Age: 72 year Height: 5'10" Weight: 186 lbs BMI: 26.69 kg/m2 Occupation: Retired VAS: 5 CHIEF COMPLAINT: S/P L1 kyphoplasty DOI:None DOS:05/14/22 Post Op Week: 2 weeks HISTORY: Mr. Adhikari returns to the office for a post-operative evaluation following their L1 Kyphoplasty . Patient reports decreasing lumbar pain since the time of their procedure. Patient however notes SI joint pain which has progressed since their last appointment and is causing some issues. Patient is having mild sleep disturbances as well. For their symptoms, the patient has been taking Percocet 10 and Eliquis. Patient denies any other treatment modalities or medications at this time. The patient denies any f/c/sob/cp, no incision concerns, no bladder or bowel retention/incontinence, no perineal numbness/tingling, and ambulates independently. The patient's past medical history; past surgical history; family history; medicines; allergies and social history have been reviewed and are as stated elsewhere in the chart. 16 points review of systems completed and as stated in HPI, all other systems reviewed are negative. PHYSICAL EXAM: -Patient is alert and oriented 3 appears well-nourished well-hydrated is in no acute distress. They do not appear septic. -On exam the patient has no tenderness to palpation of their thoracic or lumbar spine. There is no edema or ballottement sign. -Upper extremities show 5/5 strength in all major muscle groups. -Lower extremities with 5 out of 5 strength in all major muscle groups -There is FROM that is painless of the b/l UE and LE in all major joints. -They are intact to light touch sensation in L2 to S1 nerve distribution as well as the C5-T1 distribution. -DTRs 2/4 all upper and lower -Patient has palpable distal pulses in all four extremities -Compartments are soft and compressible. -Neg Noguera's -No Clonus -Neg Babinski -Neg Castillo's -No tensioning signs. -Cranial nerves II through XII are grossly intact. -Overall alignment is well-maintained in the sagittal coronal planes. Surgical incision: Looks good, no sign of any infection, no drainage, EEE, edema, or ecchymosis. No fevers or chills. Left SI joint tenderness - Positive left Davin's - Positive left Compression - Positive left Hip Thrust -+FABER4 RADIOGRAPHS: XRay Lumbar AP/lateral 2 views taken at [facility] [place] on 05/27/22 of Lumbar Spine: Cement in good position, no signs of any cement loosening, migration, dislocation, or failure. Overall good coronal alignment with stable sagittal balance. Good reduction maintained.No osseous abnormalities noted. ASSESSMENT: 1. S/P L1 kyphoplasty 2. Left SI joint pain 3. S/P left SI joint fusion 4. S/P L4-5 TLIF PLAN: All options were reviewed today, we decided the best course of action would be: -Advised patient to continue with supplements, health maintenance, and home exercise programs. Patient expressed understanding and will continue with these modalities. -I discussed treatment options with the patient, including operative and non- operative options, and they have elected to proceed with the following surgical procedure: SI Joint Injections with Fluoroscopy The indications, risks, benefits, and alternatives to surgery were discussed with the patient at length. Specifically (but not limited to) the risks of infection, stiffness, recurrence of symptoms, need for revision surgery, local numbness, neurovascular injury, and blood clots were discussed. The patient's questions were answered.The decision to proceed was made. Consent will be obtained for the procedure. -No lifting, bending, twisting no lifting greater than 30 lbs -Wear brace as needed/when up and about, do not sleep or shower in it. -Ambulate daily -Take pain medications and post op medications as needed and as directed -Ice and rest for pain and swelling control. Spine Surgery Risk Review Mr. Adhikari is presenting for evaluation of SI joint pain. It was my pleasure to have seen and examined Mr. Adhikari. In our visit today we have had a chance to go over subjective complaints, physical examination findings and treatments including the natural course history without intervention and various interventional options. The patients imaging demonstrates: XRay Lumbar AP/lateral 2 views taken at [facility] [place] on 05/27/22 of Lumbar Spine: Cement in good position, no signs of any cement loosening, migration, dislocation, or failure. Overall good coronal alignment with stable sagittal balance. Good reduction maintained.No osseous abnormalities noted. On physical exam, Mr. Adhikari demonstrates: Patient reports decreasing lumbar pain since the time of their procedure. Patient however notes SI joint pain which has progressed since their last appointment and is causing some issues. Patient is having mild sleep disturbances as well. I have explained to the patient that as their condition progresses it will cause further neurological deficits and eventual paralysis. Based on the patients imaging, physical exam, and the rapid progression and disabling nature of their symptoms, at this time I recommend surgery in the form of a: SI Joint Injections with Fluoroscopy I discussed the risk and benefits of this procedure at length with Mr. Ahdikari. The patient agreed to considered pursuing the procedure abovementioned. Prior to surgery, she should follow up with her PCP (Cardio, ID, IM etc) for clearance. Questions were invited and answered, and the patient wishes to proceed as outlined below. Currently, I am recommendin.SI Joint Injections with Fluoroscopy 2.Follow up with PCP for surgical clearance 3.Review of surgical risks and benefits as well as an educational packet on the proposed surgical procedure. Risks: All surgical procedures come with inherent risks, including those related to positioning, anesthesia, intraoperative findings, and postoperative complications. It is important to understand that surgery does not come with any guarantee of a successful outcome as complications and adverse events are always possible. The patient was given a handout in office today discussing the surgical procedure and risks associated with the intervention, both of which were discussed with the patient. These risks include but are not limited to the following: * Experiencing same, different or even worse symptoms in back, neck, arms, or legs compared to before surgery. Requiring further surgery or other forms of treatment presently or at some time in the future at same or other levels of the intended spine surgery. On an extreme but fortunately relatively rare basis severe complication such as blindness, stroke, heart attack, temporary and/or permanent nerve injury, paralysis, coma, or may occur, sometimes without known explanation. Surgical complications may include but are not limited to risk of infection, fluid accumulation in the surgical dissection site, including a seroma or hematoma, that requires additional surgery, wound drainage, bleeding, new numbness or weakness, vision changes/loss, spinal fluid leakage, non-healing and/or infected incision, headaches, difficulty or inability to swallow, hoarseness, hemopneumothorax, pneumothorax, impotence, retrograde ejaculation, vaginal dryness; injury to nerves, spinal cord, blood vessels, lymphatics or other vital organs (i.e., bowel injury, injury to the great vessels); heterotopic bone formation; complications related to the hardware such as screws, rods, cages including misplaced hardware, device failure, instrumentation at the wrong spine level, hardware fracture/breakage, or hardware loosening; vertebral failure of the spinal column above or below the newly placed hardware; retained surgical instrumentations or devices and the need for further surgery. * Medical risks of the planned spine surgery include but are not limited to generalized Infections to the whole body or local areas outside of the surgical site (sepsis), heart attack, bleeding, anaphylaxis, meningitis, seizure, epilepsy, hearing loss, burn casiano, laceration of the head or other areas of the body, bruising, hypersensitivity of the skin, bladder over distension; allergic reaction; shoulder injury related to positioning; fat, blood and air clots to other areas of the body like heart, lungs, brain; failure of internal organs such as lungs, kidneys, liver and excessive bleeding. If blood transfusions are necessary, note that transfusions may cause intolerance reactions such as anaphylaxis or other complex reactions. Despite best efforts, the results of spine surgery might not heal in terms of bone, soft tissues such as skin, fascia, ligaments, and joints. Additionally, in order to achieve best possible results, spine surgery may be carried out beyond the initially planned levels and involve decompression, fusion including insertion of hardware at levels other than the original intended area of surgical interest change some portions of the procedure in order to ensure the best possible outcomes. With spine surgery and spinal fusion, there are different off label uses of instrumentation (devices, implants and hardware) as well as biological substances (bone morphogenic proteins, demineralized bone matrix) as well as using extra bone from allograft sources (i.e. cadaver bone) or autograft (iliac crest bone, ribs, or the spine itself). The patient has been given information about these practices and their inherent risks and benefits. [facility] is an educational center that serves as a training facility for neurosurgical and orthopedic [employer] and Nursing students. Physician assistants are medically trained surgical providers who function in the outpatient, inpatient, and operating room setting under the direct supervision of the attending surgeon. [facility] has multiple operating rooms with single and overlapping rooms running daily. They currently function under the required guidelines as produced by the [facility] Finance Committee with regards to the overlapping rooms and will continue to comply with changes to this policy as they occur. The requirements include and are complied with as follows: (1) the critical portions of the overlapping rooms will not occur at the same time, (2) the attending physician will be physically present during the critical portions of the procedure and immediately available during the entire case, and (3) a back-up attending is designated should the primary attending not be immediately available. The patient has had a chance to review all the listed information, has been given print outs detailing this information, and has had all his/her questions answered to their satisfaction. It was my pleasure to have seen and examined Mr. Adhikari. In our visit today we have had a chance to go over my understanding of our patient's current condition, the natural course history without intervention and various interventional options. Questions were invited and answered, and the patient wishes to proceed as outlined above. I have seen and examined the patient for 25 minutes and we have spent more than 50% of the time in repeat and detailed counseling about the patient's condition, its natural course history with out and as much as can be predicted with surgery and re-review of various surgical treatment options. In conclusion, Mr. Adhikari requested we proceed with the above suggested surgery and are willing to accept risks and limitations of the suggested surgery as nature of the disease process and our best attempts at treatment for the condition. Thank you again for allowing us to be part of your patient's care. Please don't hesitate to contact me if you have any further questions. Signed and authenticated by: [employer] P:\\\\ppart\\\\Files\\\\[id number] \\d [facility] and Minimally Invasive Spine Surgery [address] [place] [address], [address] [address] Follow- up: 4 weeks Post procedure Patient Education: (Informational booklet, instructions, etc) given at today's appointment: Yes .ED:Patient Education: Y Medications Reviewed: YES Attestation: In our visit today Mr. Adhikari and I have had a chance to go over my understanding of the patient's current condition, the natural course history wi thout intervention and various interventional options. Questions were invited and answered, and the patient wishes to proceed as outlined above. I will be sure to keep you updated afterMrVivian Adhikari returns here for further follow-up. Thank you again for your referral. Please do not hesitate to contact me if you have any further questions. Signed and authenticated by: Marco Gallegos [facility] [address] [place] [address], [place] [id number] This message is confidential, intended only for the named recipient(s) and may contain information that is privileged or exempt from disclosure under applicable law. If you are not the intended recipient(s), you are notified that the dissemination, distribution or copying of this information is strictly prohibited. If you received this message in error, please notify the sender then delete this message. CC: Dennis Benjamin M.D. # SIGNED BY Marco Contreras ([facility])09/08/2022 08:43AM Past Medical History Past Medical History: Chest Pain / Angina, Diabetes Mellitus, GERD/Reflux, Hearing Disorder / Deafness, Hyperlipidemia, Hypertension, Prostate Disorder Additional Past Medical History / Comment(s): blood clot in splenic vein, pancreatitis, constipation, cyst on pancreas History of Any Multi-Drug Resistant Organisms: None Reported Past Surgical History: Back Surgery, Orthopedic Surgery, Tonsillectomy Additional Past Surgical History / Comment(s): back surgery x 5 (Fusion,laminectomy,cage), Myelogram X 4 pre surgical, colonoscopy, right shoulder surgery Past Anesthesia/Blood Transfusion Reactions: No Reported Reaction Past Psychological History: No Psychological Hx Reported Smoking Status: Former smoker Past Alcohol Use History: None Reported Additional Past Alcohol Use History / Comment(s): STARTED SMOKING AGE 19 quit smoking AGE 41, smoked APPROX 1PPD Past Drug Use History: None Reported - Past Family History Mother Family Medical History: No Reported History Medications and Allergies Home Medications Medication Instructions Recorded Confirmed Type Apixaban [Eliquis] 5 mg PO BID 10/02/20 10/12/22 History Atorvastatin [Lipitor] 80 mg PO HS 10/02/20 10/12/22 History Ferrous Sulfate [Iron (65 MG 325 mg PO DAILY 10/02/20 10/12/22 History Elemental)] Sennosides [Senna] 8.6 mg PO HS 10/02/20 10/12/22 History oxyCODONE-APAP 10-325MG [Percocet 1 tab PO QID PRN 10/02/20 10/12/22 History 10-325 mg] Omeprazole [PriLOSEC] 20 mg PO DAILY 02/25/21 10/12/22 History metFORMIN HCL [Glucophage] 500 mg PO DAILY 02/14/22 10/12/22 History Albuterol Inhaler [Ventolin Hfa 2 puff INHALATION RT-Q4H PRN 10/10/22 10/12/22 History Inhaler] Budesonide/Formoterol Fumarate 2 puff INHALATION RT-BID PRN 10/10/22 10/12/22 History [Symbicort 160-4.5 Mcg Inhaler] Cholecalciferol [Vitamin D3 (25 25 mcg PO DAILY 10/10/22 10/12/22 History Mcg = 1000 Iu)] Famotidine 40 mg PO HS 10/10/22 10/12/22 History Ipratropium [place] [Ipratropium 1 spray NASAL DAILY 10/10/22 10/12/22 History [place] 0.03%] Melatonin 5 mg PO HS 10/10/22 10/12/22 History Sertraline [Zoloft] 100 mg PO DAILY 10/10/22 10/12/22 History Tamsulosin [Flomax] 0.4 mg PO DAILY 10/10/22 10/12/22 History lisinopriL [Zestril] 5 mg PO HS 10/10/22 10/12/22 History lisinopriL [Zestril] 10 mg PO [facility] 10/10/22 10/12/22 History traZODone HCL 300 mg PO HS 10/10/22 10/12/22 History Allergies Allergy/AdvReac Type Severity Reaction Status Date / Time hydrocodone bitartrate Allergy Rash/Hives, Verified 10/12/22 16:16 [From Vicodin] Itching Physical Examination Osteopathic Statement: *. No significant issues noted on an osteopathic structural exam other than those noted in the History and Physical/Consult.
[2022-10-19] MEDS ORDERED: TRIAMCINOLONE ACETONIDE 40 MG/ML 1 ML VIAL INTRAARTIC PRN (06:00)
[2022-10-19] MEDS ORDERED: LIDOCAINE 1% (10MG/ML) FOR IV START INTRADERMA PRN (06:08)
[2022-10-19 06:39] LABS: Glucose,Whole Blood 132 mg/dL (70-110)
[2022-10-19 06:41] VITALS: TEMP 98
[2022-10-19] MEDS: LACTATED RINGERS 1,000 ML IV SCH ×2 (06:44→06:56)
[2022-10-19] MEDS ORDERED: ONDANSETRON 4 MG/2 ML VIAL ONE (06:46)
[2022-10-19] MEDS ORDERED: DEXAMETHASONE SOD PHOSPHATE 4 MG/ML 1 ML VIAL IVP ONE (06:51)
[2022-10-19] MEDS ORDERED: PROPOFOL 10 MG/ML 20 ML VIAL IV ONE (06:54)
[2022-10-19] MEDS ORDERED: KETAMINE 10 MG/ML 20 ML VIAL ONE (06:54)
[2022-10-19] MEDS ORDERED: fentaNYL (PF) 50 MCG/ML 2 ML AMP ONE (06:54)
[2022-10-19] MEDS ORDERED: IOPAMIDOL-370 100ML BTL MISCELLANE ONE (07:10)
[2022-10-19] MEDS ORDERED: BUPIVACAINE (PF) 0.25% 30 ML VIAL SQ ONE (07:11)
[2022-10-19] MEDS ORDERED: methylPREDNISolone ACETATE 40 MG/ML 1 ML VIAL INTRAARTIC ONE (07:11)
[2022-10-19] MEDS ORDERED: LIDOCAINE 0.5%-EPI 1:200,000 50 ML VIAL SQ ONE (07:11)
[2022-10-19 07:23] VITALS: RESP 16
[2022-10-19 07:39] VITALS: BP 101/73; PULSE 54
--- NOTE | 2022-10-19 08:38 | FL ---
EXAMINATION TYPE: FL guidance operating room DATE OF EXAM: 10/19/2022 HISTORY: Fluoroscopy time Total dose area product (DAP) in uGy*m?, mGy*cm? (or similar): 0.5378 IMPRESSION: 1. Fluoroscopy time.
--- NOTE | 2022-10-25 09:26 | P.OP ---
Date of Procedure: 10/19/22 Preoperative Diagnosis: 1. Left SIJ OA, s/p fusion with continued pain 2. Low back pain Postoperative Diagnosis: 1. Left SIJ OA, s/p fusion with continued pain 2. Low back pain Procedure(s) Performed: 1. Left SIJ injection 2. Needle localization under flouroscopic guidance for SIJ injection Left. Anesthesia: local, other (sedation) Surgeon: Marco Contreras Estimated Blood Loss (ml): 0 IV fluids (ml): 100 Urine output (ml): 0 Pathology: none sent Condition: stable Disposition: PACU Indications for Procedure: Mr. Adhikari is presenting for evaluation of SI joint pain. It was my pleasure to have seen and examined Mr. Adhikari. In our visit today we have had a chance to go over subjective complaints, physical examination findings and treatments including the natural course history without intervention and various interventional options. The patients imaging demonstrates: XRay Lumbar AP/lateral 2 views taken at [facility] on 05/27/22 of Lumbar Spine: Cement in good position, no signs of any cement loosening, migration, dislocation, or failure. Overall good coronal alignment with stable sagittal balance. Good reduction maintained.No osseous abnormalities noted. On physical exam, Mr. Adhikari demonstrates: Patient reports decreasing lumbar pain since the time of their procedure. Patient however notes SI joint pain which has progressed since their last appointment and is causing some issues. Patient is having mild sleep disturbances as well. I have explained to the patient that as their condition progresses it will cause further neurological deficits and eventual paralysis. Based on the patients imaging, physical exam, and the rapid progression and disabling nature of their symptoms, at this time I recommend surgery in the form of a: SI Joint Injections with Fluoroscopy I discussed the risk and benefits of this procedure at length with Mr. Adhikari. The patient agreed to considered pursuing the procedure abovementioned. Prior to surgery, she should follow up with her PCP (Cardio, ID, IM etc) for clearance. Questions were invited and answered, and the patient wishes to proceed as outlined below. Currently, I am recommendin.SI Joint Injections with Fluoroscopy Description of Procedure: The patient was seen and examined in the preoperative area. All preoperative protocols were followed. Informed consent was obtained risks and benefits of the procedure were discussed at length. Risks including bleeding infection damage to the surrounding tissue and risk of reoperation were discussed with the patient. Risk of anesthesia up to and including was a discussed with the patient. These are outlined in the risk review. They were willing to accept these risks and all of the risks of surgery. The patient was seen and evaluated by the anesthesia team who deemed them fit for surgery. The site was marked, the patient was willing to proceed with the procedure. The patient was transferred to the operative suite by the Department of anesthesia. They were then drifted off to sleep by the department anesthesia and sedation with local was performed. The patient tolerated this well. Once confirmation of lines and ventilation the patient was transferred to a prone Osmar table very carefully. All bony prominences including wrists, elbows, axilla, chest, hips, and thighs, and feet were padded very well. Special attention was paid to the genitalia and these were padded accordingly. SCDs were placed on bilateral lower extremities and were connected. Arms were well padded and placed on arm boards up and out in the 90/90 position. Once in position, again we confirmed good ventilation capabilities and that lines were running appropriately. The patient's lumbopelvic spine was then exposed. 1010s were placed outlining the incision site. Standard alcohol was used to clean the incision site and allowed to dry. C-arm was used to biomark the patient and confirm level for incision which was marked with a skin marker. Operative briefing was performed with all teams and everyone in agreement to proceed. The patient was then prepped and draped in a normal sterile fashion. Timeout was then performed and all parties were in agreement with the procedure to be performed. Biplanar fluoroscopy was used to identify the LEFT SI joint which were then accessed with a 18-gauge needle after anesthetic was placed into the subcutaneous tissue in the form of 1% with epinephrine of lidocaine along with a mixture of cortical percent Marcaine without epinephrine. Once there is good anesthesia and the SI joints were accessed Isovue was used to confirm within the joint space. Once this was confirmed 40 of Kenalog along with a mixture of lidocaine and Marcaine were injected into the SI joint. Patient remained stable the entire time without any radicular symptoms during the injection phase. The needles were withdrawn and the area cleaned and Band-Aids placed. The patient was transferred back to their hospital bed atraumatically. Lori ent was then awakened and extubated by the department of anesthesia having tolerated the procedure very well with no complications. They were transferred to the postoperative care unit in stable condition.
== END 2022-10-19 07:57 | disposition home or self-care (01) ==
LOC: OR 05:47
PROVIDERS: ATTEND Orthopaedic Surgery
DX: M46.1 Sacroiliitis, not elsewhere classified (principal); Z98.1 Arthrodesis status; G47.9 Sleep disorder, unspecified; I10 Essential (primary) hypertension; E78.5 Hyperlipidemia, unspecified; E11.9 Type 2 diabetes mellitus without complications; K21.9 Gastro-esophageal reflux disease without esophagitis; H91.90 Unspecified hearing loss, unspecified ear; N42.9 Disorder of prostate, unspecified; Z87.891 Personal history of nicotine dependence; Z79.84 Long term (current) use of oral hypoglycemic drugs; Z79.01 Long term (current) use of anticoagulants; Z79.899 Other long term (current) drug therapy
CPT/HCPCS: 27096; J3301

== ENCOUNTER → 2022-11-08 | Outpatient (CLI) | payer MEDICARE ==
--- NOTE | 2022-11-16 15:28 | MR ---
EXAMINATION TYPE: MR shoulder RT wo con DATE OF EXAM: 11/08/2022 COMPARISON: Radiograph 11/03/2022 and MRI 06/03/2022 HISTORY: 72-year-old M25.511, Rt shoulder pain, Ligament repair 9 weeks ago on shoulder TECHNIQUE: Multiplanar, multisequence imaging of the right shoulder is performed without contrast. FINDINGS: There is nonvisualization of the intracapsular portion of the lung biceps tendon. Fibers in the upper bicipital groove are diminutive and there appears to be some bunching in the lower bicipital groove. Suspect the tendon to be torn. There is a lateral suture anchor in the posterior aspect of the greater tuberosity. Moderate to large effusion in the subacromial/subdeltoid bursa. This effusion dissects between the AC joint. AC joint space widening may be on a postsurgical basis. Clinically correlate. There is extensive bursal sided fraying of the supraspinatus tendon. Suspect a high-grade bursal side d tear of the anterior supraspinatus tendon measuring 9 mm long and 1.6 cm AP. No well-defined retracted tear is identified. Most of the subscapularis tendon appears intact. There is a small articular sided tear of the superio r fibers. No atrophy of the rotator cuff musculature. Redemonstrated osteoarthritic change along the posterior half of the glenoid with irregular cartilage loss and heterogeneous signal within the superior labrum extending back to the superior aspect of th e posterior labrum. No Hill-Sachs deformity or os acromiale. Mild patchy red marrow can be seen with anemia, smoking, chronic disease. IMPRESSION: 1. Suture anchor within the posterior lateral aspect of the greater tuberosity. There is diffuse hete rogeneity of the supraspinatus and infraspinatus tendons suggesting extensive tendinosis. In addition , there is extensive bursal sided fraying present and a high-grade bursal sided tear of the anterior supraspinatus tendon measuring 9 mm long and 1.6 cm AP. No kim retracted tear is identified despite the moderate to large bursal effusion. No muscle atrophy. 2. Small articular sided tear of the superior subscapularis tendon. 3. The bursal effusion communicates with the AC joint space. The AC joint space widening is likely on a postsurgical basis. 4. Torn intracapsular portion of the long head biceps tendon. 5. Moderate overall glenohumeral joint OA with the greatest degree of cartilage loss along the blending tank tender ior half of the joint.
== END | disposition home or self-care (01) ==
LOC: RADMRIMAIN 19:18
PROVIDERS: ATTEND Physician Assistant
DX: M19.011 Primary osteoarthritis, right shoulder (principal); M25.411 Effusion, right shoulder; S46.111A Strain of muscle, fascia and tendon of long head of biceps, right arm, initial encounter

== ENCOUNTER → 2022-12-07 | Outpatient (CLI) | payer MEDICARE ==
--- NOTE | 2022-12-07 14:44 | CT ---
EXAMINATION TYPE: CT lumbar spine wo con CT DLP: 902.4 mGycm, Automated exposure control for dose reduction was used. DATE OF EXAM: 12/07/2022 11:59 AM COMPARISON: CT lumbar spine 04/22/2022, MRI lumbar spine 12/07/2022. CLINICAL INDICATION:Male, 72 years old with history of M54.50 M48.26; PHH, low back pain TECHNIQUE: Multiple axial images were obtained from the midportion of T11 through the sacroiliac radha nts. Soft tissue and bone windows in coronal and sagittal planes were obtained and reviewed. FINDINGS: Alignment: There are 5 lumbar type vertebral bodies within normal alignment. Bone: Postsurgical changes with bilateral pedicular screws and rods and disc fusion cages involving L 4-L5. Hardware appears intact. Additional post surgical changes from left SI joint fixation. Vertebra l augmentation changes from remote compression deformity involving the L1 vertebral body with approxi mately 50% height loss and 2 mm retropulsion. No evidence of acute fracture is identified. Discs: T12-L1: Broad-based disc bulge without significant central canal stenosis. No neural foraminal stenos is. L1-L2: Broad-based disc bulge with mild effacement of the intrathecal sac. Bilateral facet arthropath y. No neural foraminal stenosis. L2-L3: Broad-based disc bulge with mild central canal stenosis. Lateral facet arthropathy. Mild left neural foraminal stenosis. The right neural foramen is patent. L3-L4: Broad-based disc bulge with bilateral facet arthropathy contribute to mild central canal steno sis. Mild bilateral neural foraminal stenosis. L4-L5: Surgical changes without gross evidence for significant central canal or neural foraminal jason nosis. L5-S1: Broad-based disc bulge without significant central canal stenosis. Bilateral facet arthropathy . No significant neural foraminal stenosis. Other: Partial visualization of catheter within the stomach related to pseudocyst drainage. Redemonst ration of bilobed infrarenal abdominal aortic aneurysm measuring 4.2 x 3.8 cm and 4.0 x 5.0 cm respec tively. Sigmoid colonic diverticulosis without visualized acute diverticulitis. IMPRESSION: 1. No evidence of acute fracture of the lumbar spine. 2. Vertebral augmentation changes of previously seen L1 compression fracture. 3. Postsurgical changes from L4-L5 fusion. Hardware appears intact. 4. Mild to moderate multilevel degenerative disc disease and facet arthropathy as described above. 5. Redemonstration of bilobed infrarenal abdominal aortic aneurysm.
--- NOTE | 2022-12-07 17:39 | MR ---
EXAMINATION TYPE: MR lumbar spine wo/w con DATE OF EXAM: 12/07/2022 COMPARISON: CT 08/12/2022 HISTORY: 72-year-old male Lower back pain, LLE radiculopathy. Hx surgery. TECHNIQUE: Multiplanar, multisequence images of the lumbar spine were obtained before and after admin istration of 8 mL intravenous Gadavist gadolinium contrast. FINDINGS: There is a chronic vertebral compression deformity of L1 with prior vertebroplasty change. Patient is status post L4-L5 posterior and interbody lumbar fusion. Moderate multilevel degenerative disc disease with variable disc desiccation and disc bulging through out. Alignment is maintained and remaining vertebral body heights are preserved. No suspicious bone marrow replacement. Conus medullaris is normal. Bulging disks impress on the ventral thecal sac to varying degrees but do not contribute any signific ant spinal canal stenosis. There is facet arthropathy throughout with scattered ligamentum flavum thickening. At T12-L1, mild retropulsion impresses on the ventral thecal sac without significant canal or foramin al stenosis. At L1-L2, mild disc bulge and facet arthropathy with mild right neuroforaminal stenosis. No spinal ca nal stenosis. At L2-L3, diffuse disc bulge and facet arthropathy. There is superimposed left intraforaminal and lef t lateral broad-based disc protrusion. This contributes to moderate left neuroforaminal stenosis and possible abutment of the extraforaminal left L2 nerve root. No spinal canal stenosis. At L3-L4, disc bulge and facet arthropathy. Changes result in mild bilateral neuroforaminal stenosis. At the fused L4-L5 level, there is mild bilateral neural foraminal narrowing. At L5-S1, disc bulge and ligamentum flavum thickening. Changes result in mild bilateral neuroforamina l stenosis. No suspicious perineural or epidural enhancing granulation tissue is clearly identified. No abnormal enhancement within the spinal canal. There are enhancing posterior annular fissures at L1-L2, L2-L3, L3-L4. There are fusiform aneurysms of the abdominal aorta measuring up to 4.3 cm. This is unchanged from 08/12/2022. IMPRESSION: 1. Patient status post L4-L5 posterior and interbody fusion and prior vertebroplasty at the site of c hronic compression deformity of L1. 2. Mild to moderate multilevel degenerative disc disease. Enhancing posterior annular fissures are no vicky at L1-L2, L2-L3, and L3-L4. 3. No large focal disc herniation or significant spinal canal stenosis. 4. Left intraforaminal and left lateral broad-based disc protrusion at L2-L3 contributes to moderate left neural foraminal stenosis with possible abutment of the extraforaminal left L2 nerve root. 5. Additional variable mild neuroforaminal stenoses throughout. 6. Stable fusiform aneurysms of the abdominal aorta measuring up to 4.3 cm. Appropriate surveillance follow-up recommended.
== END | disposition home or self-care (01) ==
LOC: RADCTMAIN 11:29
PROVIDERS: ATTEND Orthopaedic Surgery
DX: M51.16 Intervertebral disc disorders with radiculopathy, lumbar region (principal); M48.56XA Collapsed vertebra, not elsewhere classified, lumbar region, initial encounter for fracture; M99.73 Connective tissue and disc stenosis of intervertebral foramina of lumbar region; M48.26 Kissing spine, lumbar region; M47.26 Other spondylosis with radiculopathy, lumbar region; M46.1 Sacroiliitis, not elsewhere classified; I71.43 Infrarenal abdominal aortic aneurysm, without rupture; M43.26 Fusion of spine, lumbar region
CPT/HCPCS: 72131; 72158; A9585

== ENCOUNTER → 2023-03-23 | Outpatient (CLI) | payer MEDICARE ==
[2023-03-23 13:34] LABS: African American GFR (CKD) >90 (>60 ml/min/1.73 sqM); Blood Urea Nitrogen 15 mg/dL (9-20); Non-African American GFR(CKD) 84 (>60 ml/min/1.73 sqM)
--- NOTE | 2023-03-23 14:45 | CT ---
EXAMINATION TYPE: CT angio chest DATE OF EXAM: 03/23/2023 COMPARISON: 03/08/2018 HISTORY: 72-year-old male I 26.99, R/O PE. TECHNIQUE: Contiguous axial scanning of the chest performed with IV Contrast, patient injected with 1 00 ml mL of Isovue 370. Coronal and sagittal MIP reconstructions performed. CT DLP: 524 mGycm Automated exposure control for dose reduction was used. FINDINGS: The heart is normal size with small anterior basilar pericardial effusion measuring up to 8 mm thick, similar to minimally increased from 2018. Some proximal LAD and circumflex coronary artery calcification is present. Ectatic aorta 3.8 cm. Conventional arch vessel branching anatomy. Ectatic upper descending thoracic a nicole 3.6 cm. Scattered nonenlarged mediastinal lymph nodes. Prominent lymph node left hilum at 1.2 cm and right hi lum at 1.1 cm both remain unchanged, likely reactive/post inflammatory. Satisfactory opacification of the pulmonary arterial system without evidence for pulmonary embolus. Moderate emphysematous change. Scattered mild pleural parenchymal scarring. [id number] diffuse bronchial wall thickening. No consolidation or pleural effusion. Visualized upper abdomen shows low attenuation of the hepatic parenchyma suggesting fatty infiltratio n. There is redemonstration of a low-density nodule right adrenal gland measuring 2.0 cm compatible with a lipid rich adrenal adenoma. Moderate atherosclerotic calcification and plaque mid abdominal aorta with fusiform dilatation/aneurysm up to 3.2 cm but incompletely imaged. We note that there was a larg er AAA located more inferiorly measuring up to 4.4 cm on 08/12/2022. Appropriate surveillance follow-up is advised. There is a retained plastic stent traversing the posterior wall of the stomach. One loop is within th e gastric lumen. The other loop is at the tail of the pancreas. Bones: Previous vertebral plasty change L1, present on 08/12/2022 as well. IMPRESSION: 1. NO EVIDENCE FOR PULMONARY EMBOLUS. 2. COPD WITH MODERATE EMPHYSEMA. BRONCHIAL WALL THICKENING COULD REPRESENT A PROMINENT COMPONENT OF C HRONIC BRONCHITIS VERSUS SUPERIMPOSED ACUTE BRONCHITIS. 3. PARTIALLY VISUALIZED MIDABDOMINAL AAA AT 3.2 CM. INFRARENAL AAA SEEN ON 08/12/2022 IS NOT INCLUDED I N THE [id number] AND WAS NOTED TO MEASURE UP TO 4.4 CM. APPROPRIATE SURVEILLANCE FOLLOW-UP IS LORENZO MMENDED. 4. 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 THERE APPEARS TO BE AN OLD, RETAINED CYST GASTROSTOMY STENT LIKELY FOR DRAINAGE OF A PREVIOUS PANCREATIC PSEUDOCYST.
== END | disposition home or self-care (01) ==
LOC: RADCTMAIN 12:40
PROVIDERS: ATTEND Internal Medicine
DX: I26.99 Other pulmonary embolism without acute cor pulmonale (principal); J43.9 Emphysema, unspecified; I71.43 Infrarenal abdominal aortic aneurysm, without rupture; J98.09 Other diseases of bronchus, not elsewhere classified
CPT/HCPCS: 82565; 84520; 71275; 36415; Q9967

== ENCOUNTER → 2023-03-29 | Outpatient (CLI) | payer MEDICARE ==
--- NOTE | 2023-03-29 13:10 | XR ---
EXAMINATION TYPE: XR chest 2V DATE OF EXAM: 03/29/2023 12:12 PM CLINICAL INDICATION:Male, 72 years old with history of J06.9; COMPARISON: Chest radiographs from 07/13/2022 TECHNIQUE: XR chest 2V Frontal and lateral views of the chest. FINDINGS: Lungs/Pleura: Prominent interstitial lung markings are seen scattered throughout the lungs with camelia ening of the diaphragm and increased lucency of the lung apices. No evidence of focal consolidation, pneumothorax or pleural effusion. Pulmonary vascularity: Unremarkable. Heart/mediastinum: Cardiomediastinal silhouette is unremarkable. Musculoskeletal: No acute osseous pathology. IMPRESSION: 1. No acute cardiopulmonary disease process. 2. COPD changes.
== END | disposition home or self-care (01) ==
LOC: RADXRMAIN 11:55
PROVIDERS: ATTEND Family Medicine
DX: J06.9 Acute upper respiratory infection, unspecified (principal); J44.9 Chronic obstructive pulmonary disease, unspecified
CPT/HCPCS: 71046

== ENCOUNTER → 2023-04-04 | Outpatient (CLI) | payer MEDICARE ==
[2023-04-04 21:49] LABS: Calcium 9.8 mg/dL (8.7-10.3); Magnesium 1.8 mg/dL (1.5-2.4); Phosphorus 3.2 mg/dL (2.4-5.1); Potassium 4.9 mmol/L (3.5-5.5)
--- NOTE | 2023-04-05 21:18 | MR ---
EXAM: MR wrist RT wo con DATE OF EXAM: 04/04/2023 COMPARISON: Right wrist radiographs 03/29/2023 HISTORY: Right wrist pain, limited movement. Hx fracture. TECHNIQUE: Multiplanar, multisequence images of the right wrist were acquired without contrast. FINDINGS: BONES/JOINTS: Susceptibility artifact and a cortical deformity of the distal radial metaphysis relati ng to prior fracture with ORIF fixation hardware, subsequently removed. Degenerative cystic changes w ithin the distal ulna and the proximal lunate. No ulnar variance. Degenerative osteophytic spurring a nd small reactive joint effusion distal radial ulnar joint. LIGAMENTS: Scapholunate and lunotriquetral ligaments are grossly normal, given the limitations of a n onarthrographic exam. Degenerative signal within the granular fibrocartilaginous complex without disc rete linear tear, given the limitations of a nonarthrographic exam. Extrinsic carpal ligaments are no rmal. TENDONS: Flexor tendons are normal. Intrasubstance signal and partial intrasubstance longitudinal spl it tearing of the extensor carpi ulnaris tendon at the level of the distal ulna. The remainder of the extensor tendons are normal.. SOFT TISSUES: Carpal tunnel is normal. Guyon's canal is normal. No bursal distention. No fluid collec tion. NEUROVASCULAR: The median nerve is normal in size, signal, and location. The ulnar nerve is normal in size, signal, and location. Vascular structures are normal OTHER: Normal. IMPRESSION: 1. Remote fracture deformity and post surgical changes distal radius. 2. Degenerative changes in the DRUJ and the ulnar styloid. Mild degenerative changes in the lunate. 3. Degenerative signal in the TFCC without discrete linear tear 4. Extensor carpi ulnaris tendinosis and partial intrasubstance longitudinal split tear.
== END | disposition home or self-care (01) ==
LOC: RADMRIMAIN 12:26
PROVIDERS: ATTEND Orthopaedic Surgery Hand Surgery
DX: M19.031 Primary osteoarthritis, right wrist (principal); M67.833 Other specified disorders of tendon, right wrist
CPT/HCPCS: 82310; 82607; 83735; 84100; 84132; 84295

== ENCOUNTER → 2023-04-04 | Outpatient (CLI) | payer MEDICARE | END | disposition home or self-care (01) | LOC: LABWHC1 13:58 | PROVIDERS: ATTEND Psychiatry & Neurology Neurology | DX: Z53.9 Procedure and treatment not carried out, unspecified reason (principal) ==

== ENCOUNTER → 2023-04-06 | Outpatient (CLI) | payer MEDICARE ==
[2023-04-06 16:22] LABS: ABG Base Excess 2.2 mmol/L; ABG HCO3 27 mmol/L (21-25); ABG Oxygen Saturation 96.4 % (94-97); ABG PCO2 40 mmHg (35-45); ABG PH 7.43 (7.35-7.45); ABG PO2 83 mmHg (83-108); ABG TCO2 28 mmol/L (19-24); Allen Test Performed? Yes
[2023-04-07 03:00] LABS: Basophils # (A) 0.05 X 10*3/uL (0.00-0.10); Basophils % (A) 0.4 %; Eosinophils # (A) 0.27 X 10*3/uL (0.04-0.35); Eosinophils % (A) 2.2 %; HCT 40.2 % (39.6-50.0); HGB 13.2 g/dL (13.0-17.0); Lymphocytes # (A) 1.83 X 10*3/uL (0.90-5.00); MCH 30.6 pg (27.0-32.0); MCHC 32.8 g/dL (32.0-37.0); MCV 93.1 FL (80.0-97.0); Mean Platelet Volume 8.6 FL (9.5-12.2); Monocytes # (A) 0.87 X 10*3/uL (0.20-1.00); Monocytes % (A) 7.1 %; NRBC Per 100 WBC 0 X 10*3/uL (0.00-0.01); Neutrophils # (A) 9.03 X 10*3/uL (1.80-7.70); Platelet Count 440 X 10*3/uL (140-440); RBC 4.32 X 10*6/uL (4.40-5.60); RDW 12.6 % (11.5-14.5); WBC 12.21 X 10*3/uL (4.50-10.00)
[2023-04-07 03:41] LABS: % Iron Saturation 29.54 (15.00-50.00)
== END | disposition home or self-care (01) ==
LOC: LABWHC1 15:10
PROVIDERS: ATTEND Internal Medicine
DX: D64.9 Anemia, unspecified (principal); R06.02 Shortness of breath
CPT/HCPCS: 36415; 36600; 82607; 82728; 82805; 83540; 83550; 85025

== ENCOUNTER → 2023-08-12 | Outpatient (CLI) | payer MEDICARE ==
[2023-08-12 18:48] LABS: Basophils # (A) 0.04 X 10*3/uL (0.00-0.10); Basophils % (A) 0.4 %; Eosinophils # (A) 0.17 X 10*3/uL (0.04-0.35); Eosinophils % (A) 1.7 %; HCT 43.2 % (39.6-50.0); Lymphocytes # (A) 1.92 X 10*3/uL (0.90-5.00); Lymphocytes % (A) 18.9 %; MCH 31.5 pg (27.0-32.0); MCHC 32.4 g/dL (32.0-37.0); MCV 97.1 FL (80.0-97.0); Mean Platelet Volume 8.8 FL (9.5-12.2); Monocytes % (A) 7.9 %; NRBC Per 100 WBC 0 X 10*3/uL (0.00-0.01); Neutrophils # (A) 7.19 X 10*3/uL (1.80-7.70); Neutrophils % (A) 70.7 %; Platelet Count 435 X 10*3/uL (140-440); RBC 4.45 X 10*6/uL (4.40-5.60); RDW 12.2 % (11.5-14.5); WBC 10.16 X 10*3/uL (4.50-10.00)
[2023-08-12 20:01] LABS: Blood Urea Nitrogen 16.8 mg/dL (9.0-27.0); Calcium 10.5 mg/dL (8.7-10.3); Chloride 98 mmol/L (96-109); Glucose 188 mg/dL (70-110); Potassium 4.6 mmol/L (3.5-5.5); Sodium 138 mmol/L (135-145)
== END | disposition home or self-care (01) ==
LOC: LABPAT 14:59
PROVIDERS: ATTEND Orthopaedic Surgery Hand Surgery
DX: Z01.818 Encounter for other preprocedural examination (principal); M19.031 Primary osteoarthritis, right wrist; R94.31 Abnormal electrocardiogram [ECG] [EKG]
CPT/HCPCS: 80048; 85025; 93005

== ENCOUNTER 2023-09-07 09:52 | Day surgery (SDC) | payer MEDICARE ==
[2023-09-05 15:20] VITALS: BMI 26.9
--- NOTE | 2023-09-06 09:57 | P.HPOR ---
History of Present Illness H&P Date: 09/06/23 Subjective: This is a 72 year old male that presents today for follow up evaluation regarding continued right wrist pain status post open reduction internal fixation of his right open distal radius fracture over a year ago with Dr. Contreras. He states he has pain with any type of twisting motion located on the dorsal an ulnar aspect of his wrist and has a deep ache with any type of wrist rotation. He has tried wrist bracing and most recently has had his volar plate removed due to screw back out. Physical Examination: RUE: AIN/PIN/Radial/Ulnar/Median motor intact. Radial/Ulnar/Median SILT. 2+/4 Radial/Ulnar pulses palpated. 5/5 APB, 5/5 FDI. Negative Finkelsteins, negative CMC grind, negative Durkan's compression. TTP over dorsal DRUJ and pain with wrist rotation reproduced at DRUJ. DRUJ stable to shuck. Imaging: MRI of the right wrist from 04/04/23 demonstrates DRUJ arthritis with 8 mm of ulnar positivity, edema and cystic changes seen in the distal ulna and lunate X-ray 3V of the wrist taken in office today demonstrate DRUJ arthritis with 8mm of ulnar positivity X-ray 3V of the elbow taken in office today demonstrate no abnormality Impression: 1.) Right wrist post traumatic DRUJ arthritis 2.) Right ulnar impaction syndrome Plan: Diagnosis and treatment options were discussed with the patient. We discussed continued conservative treatment with steroid injections. He states he only got several weeks of relief with the most recent injection. He states it bothers him multiple times a day on a daily basis and is constantly throbbing. He wishes to go forward with the proposed salvage procedure of a distal ulnar resection due to the advanced degenerative changes seen at the DRUJ. Risks and benefits of surgery including bleeding, infection, damage to surrounding tissue, need for further surgery, residual numbness were discussed and the patient wished to go forward with surgery.The patient was agreeable with this plan. CC: Dennis Benjamin MD -Eliazar Bustillo DO Orthopedic Hand/Upper Extremity Surgeon Past Medical History Past Medical History: Chest Pain / Angina, Diabetes Mellitus, GERD/Reflux, Hyperlipidemia, Hypertension, Osteoarthritis (OA), Prostate Disorder, Sleep Apnea/CPAP/BIPAP Additional Past Medical History / Comment(s): COPD/Emphysema, O2 use 24/7, bilateral hearing aid use, blood clot in splenic vein, hx pancreatitis, constipation, cyst on pancreas, no CPAP use. History of Any Multi-Drug Resistant Organisms: None Reported Past Surgical History: Back Surgery, Tonsillectomy Additional Past Surgical History / Comment(s): Back surgery X5(fusion, laminectomy, cage), Myelogram X4 presurgical, colonoscopy. Past Anesthesia/Blood Transfusion Reactions: No Reported Reaction Smoking Status: Former smoker - Past Family History Mother Family Medical History: No Reported History Medications and Allergies Home Medications Medication Instructions Recorded Confirmed Type Apixaban [Eliquis] 5 mg PO BID 10/02/20 09/05/23 History Atorvastatin [Lipitor] 80 mg PO HS 10/02/20 11/19/22 History Ferrous Sulfate [Iron (65 MG 325 mg PO DAILY 10/02/20 11/19/22 History Elemental)] Sennosides [Senna] 8.6 mg PO HS 10/02/20 11/19/22 History oxyCODONE-APAP 10-325MG [Percocet 1 tab PO QID PRN 10/02/20 11/19/22 History 10-325 mg] Omeprazole [PriLOSEC] 20 mg PO DAILY 02/25/21 11/19/22 History metFORMIN HCL [Glucophage] 500 mg PO DAILY 02/14/22 11/19/22 History Albuterol Inhaler [Ventolin Hfa 2 puff INHALATION Q4H PRN 10/10/22 11/19/22 History Inhaler] Budesonide/Formoterol Fumarate 2 puff INHALATION BID 10/10/22 11/19/22 History [Symbicort 160-4.5 Mcg Inhaler] Cholecalciferol [Vitamin D3 (25 25 mcg PO DAILY 10/10/22 11/19/22 History Mcg = 1000 Iu)] Famotidine 40 mg PO HS 10/10/22 11/19/22 History Ipratropium [place] [Ipratropium 1 spray NASAL DAILY 10/10/22 11/19/22 History [place] 0.03%] Melatonin 5 mg PO HS 10/10/22 11/19/22 History Sertraline [Zoloft] 100 mg PO DAILY 10/10/22 11/19/22 History Tamsulosin [Flomax] 0.4 mg PO DAILY 10/10/22 11/19/22 History lisinopriL [Zestril] 5 mg PO HS 10/10/22 11/19/22 History lisinopriL [Zestril] 10 mg PO QAM 10/10/22 11/19/22 History traZODone HCL 300 mg PO HS 10/10/22 11/19/22 History Allergies Allergy/AdvReac Type Severity Reaction Status Date / Time No Known Allergies Allergy Verified 09/05/23 14:32 Physical Examination Osteopathic Statement: *. No significant issues noted on an osteopathic structural exam other than those noted in the History and Physical/Consult.
[~2023-09-07 09:52] MED LIST changes: +HYDROmorphone 0.5 MG/0.5 ML SYRINGE IVP PRN; -LACTATED RINGERS 1,000 ML IV SCH; +LIDOCAINE 1% (10MG/ML) FOR IV START INTRADERMA PRN; +droPERidol 5 MG/2 ML VIAL IVP ONE
[2023-09-07] MEDS: LACTATED RINGERS 1,000 ML IV SCH (10:22)
[2023-09-07] MEDS: ONDANSETRON 4 MG/2 ML VIAL IVP ONE (10:30)
[2023-09-07] MEDS: MIDAZOLAM 2 MG/2 ML VIAL IVP ONE (10:32)
[2023-09-07 10:43] VITALS: TEMP 97
--- NOTE | 2023-09-07 10:44 | P.ANPRN ---
Procedure Note - Anesthesia - Nerve Block Performed Right Supraclavicular Single Time Out Performed: Yes Date of Procedure: 09/07/23 Procedure Start Time: 10:16 Procedure Stop Time: :21 Location of Patient: PreOp Indication: Acute Post-Operative Pain, Analgesia, Requested by Surgeon Sedation Type: Sedate with meaningful contact maintained Preparation: Sterile Prep Position: Sitting Catheter: None Needle Types: Pajunk Needle Gauge: 21 Ultrasound used to visualize needle placement: Yes Ultrasound used to observe medication spread: Yes Injectate: 0.5% Ropivacaine (see comment for volume) (R0piv 20ml +decadron 4mg) Blood Aspirated: No Pain Paresthesia on Injection Noted: No Resistance on Injection: Normal Image Stored and Saved: Yes Events: Uneventful and Well Tolerated
[2023-09-07 10:46] LABS: Glucose,Whole Blood 180 mg/dL (70-110)
[2023-09-07] MEDS ORDERED: PROPOFOL 10 MG/ML 20 ML VIAL IV ONE (11:12)
[2023-09-07] MEDS ORDERED: KETAMINE HCL IN 0.9 % NACL 50 MG/5 ML SYRINGE ONE (11:12)
[2023-09-07] MEDS ORDERED: fentaNYL (PF) 50 MCG/ML 2 ML AMP ONE (11:12)
[2023-09-07] MEDS ORDERED: MIDAZOLAM 2 MG/2 ML VIAL ONE (11:12)
[2023-09-07] MEDS ORDERED: ROPIVACAINE 5 MG/ML 30 ML VIAL ONE (11:12)
[2023-09-07] MEDS ORDERED: DEXAMETHASONE SOD PHOSPHATE 4 MG/ML 1 ML VIAL ONE (11:12)
[2023-09-07 12:31] VITALS: RESP 16
[2023-09-07] MEDS: IBUPROFEN 600 MG TAB PO ONE (12:54)
[2023-09-07 13:03] LABS: Glucose,Whole Blood 178 mg/dL (70-110)
[2023-09-07 13:22] VITALS: BP 144/90; PULSE 52
--- NOTE | 2023-09-07 19:21 | P.OP ---
Date of Procedure: 09/07/23 Preoperative Diagnosis: Right wrist DRUJ arthritis Postoperative Diagnosis: Right wrist DRUJ arthritis Procedure(s) Performed: 1.) Right wrist distal ulna resection 2.) Right wrist ECU tendon transfer for ulnar stump stabilization Anesthesia: regional Surgeon: Eliazar Bustillo [employer] Operator #1: Harish Resendiz Estimated Blood Loss (ml): 10 Pathology: none sent Condition: stable Disposition: PACU Description of Procedure: This is a 73 year old male who presents today for surgical intervention for chronic DRUJ instability and arthritis. Risks and benefits of surgery were discussed with the patient including bleeding, damage to surrounding tissue, infection, need for further surgery as well as risks of anesthesia including pulmonary embolism and even and the patient wished to proceed with surgical intervention. The patient was seen in the pre-operative area by myself. Consent and H&P were completed and updated. The correct extremity was marked in the pre-operative area by myself and all other questions were answered. Operative Narrative: The patient was brought to the operating room by the department of anesthesia. They remained on the portable stretcher and a rolling hand table was brought to the side of the operative extremity. Pre-operative time out was performed indicating the correct patient, procedure and laterality. All in the room agreed. Pre-operative antibiotics were given prior to skin incision. The patient was then drifted off to sleep by the department of anesthesia. A nonsterile tourniquet was then applied to the operative extremity and the operative upper extremity was then prepped and draped in normal sterile fashion. The operative extremity was the exsanguinated with an esmarch bandage and the tourniquet was inflated to 250mmHg. A longitudinal incision was made over the dorsal ulnar aspect overlying the ulnar head. Blunt dissection was taken down through subcutaneous tissues taking care to provide protection to the dorsal ulnar sensory branch nerves. The ECU tendon sheath was then opened to reveal the distal ulnar head which appeared arthritic. Castillo retractors were placed both ulnarly and radially and a microsaggital saw was used to resect the distal 2cm's of the ulnar head which was then excised. Attention was then drawn to the ECU tendon. A distally based strip of the ECU tendon was made with a 15 blade scalpel approximately 5cm in length. A 2.7mm drill bit was then used to make a tunnel through the medullary canal and out the dorsal radial portion of the ulnar stump. The distally based ECU tendon strip was then transferred and tunneled through the drill hole and then shuttled back distally and sutured to itself with 2-0 ethibond suture to stabilize the distal ulna to prevent radial translation/impingement. The wound was then irrigated thoroughly and the periosteal sleeve over the ulna was closed with 3-0 monocryl suture. Skin closure was performed with 4-0 Monocryl suture followed by steri strips and a short arm volar/dorsal splint. Tourniquet was let down and the hand had immediate perfusion. Harish AIKEN was present for the case to assist in protection of neurovascular structure and manipulation of the extremity. The patient was then woken by the department of anesthesia and transferred to PACU in stable condition. Eliazar Bustillo D.O. Orthopedic Hand/Upper Extremity Surgeon
== END 2023-09-07 13:25 | disposition home or self-care (01) ==
LOC: OR 09:52
PROVIDERS: ATTEND Orthopaedic Surgery Hand Surgery
DX: M19.031 Primary osteoarthritis, right wrist (principal); G89.18 Other acute postprocedural pain; E11.9 Type 2 diabetes mellitus without complications; K21.9 Gastro-esophageal reflux disease without esophagitis; I10 Essential (primary) hypertension; E78.5 Hyperlipidemia, unspecified; G47.33 Obstructive sleep apnea (adult) (pediatric); J44.9 Chronic obstructive pulmonary disease, unspecified; Z90.89 Acquired absence of other organs; Z98.890 Other specified postprocedural states; Z87.891 Personal history of nicotine dependence; Z79.01 Long term (current) use of anticoagulants; Z79.84 Long term (current) use of oral hypoglycemic drugs; Z79.51 Long term (current) use of inhaled steroids; Z79.899 Other long term (current) drug therapy
CPT/HCPCS: 64415; 25337; 25240; J2250; J1100; J2405; J3010; J2795; J2704

== ENCOUNTER 2023-12-31 17:03 | Emergency (ER) | payer MEDICARE ==
[2023-12-31] MEDS ORDERED: SODIUM CHLORIDE 0.9% 1,000 ML BAG ONE (18:09)
[2023-12-31] MEDS ORDERED: INSULIN ASPART (NovoLOG) 100 UNIT/ML VIAL SQ ONE (19:33)
--- NOTE | 2024-01-25 08:25 | XR ---
Report Patient: Jordi Adhikari A Ordering Physician: Unknown, Unknown ID: [id number] Phone, Pager: Phone: N/A Pager: N/A : [phone] Age/Gender: 73Y, M Primary Location: N/A Procedure: CHEST 2V Study Date: 12/31/2023 6:26:52 PM EXAMINATION TYPE: XR chest 2V DATE OF EXAM: 12/31/2023 COMPARISON: 12/20/2023 HISTORY: 73-year-old male COVID positive, shortness of breath TECHNIQUE: PA and lateral views FINDINGS: Heart normal size. Mildly tortuous/ectatic thoracic aorta is similar. Some focal patchy medial right lower lung opacity has increased. Hyperinflation. No other consolidation or pleural effusion is seen. IMPRESSION: COPD with increased medial right basilar opacity which could represent atelectasis versus infiltrate.
== END 2023-12-31 23:05 | disposition home or self-care (01) ==
LOC: EC 17:03
CPT/HCPCS: 71046; 93005; 96361; 96374; 99284

== ENCOUNTER 2024-01-01 10:11 | Inpatient (IN) | payer MEDICARE ==
[2024-01-01 10:20] LABS: Glucose,Whole Blood 503 mg/dL (70-110)
--- NOTE | 2024-01-01 10:34 | ED ---
General Adult HPI - General Chief complaint: Shortness of Breath Stated complaint: Covid+ Time Seen by Provider: 01/01/24 10:20 Source: patient, RN notes reviewed Mode of arrival: ambulatory Limitations: no limitations - History of Present Illness Initial comments: Patient is a 73-year-old male presenting to the emergency department with concerns with not feeling well. Patient has had symptoms for the past 4 days. Patient tested COVID-positive. Patient was in the emergency department last night with hyperglycemia. Chest x-ray was done. Patient has some increasing shortness of breath. Patient does have history of underlying COPD and is on [place] oxygen. Patient has polyuria and polydipsia, blood sugar was high yesterday and improved to mid 200s. Blood sugar prior to arrival today was 503. Patient does have cough and congestion and fatigue as well. - Related Data Home Medications Medication Instructions Recorded Confirmed Apixaban [Eliquis] 5 mg PO BID 10/02/20 09/07/23 Atorvastatin [Lipitor] 80 mg PO HS 10/02/20 09/07/23 Ferrous Sulfate [Iron (65 MG 325 mg PO DAILY 10/02/20 09/07/23 Elemental)] Sennosides [Senna] 8.6 mg PO HS 10/02/20 09/07/23 oxyCODONE-APAP 10-325MG [Percocet 1 tab PO QID PRN 10/02/20 09/07/23 10-325 mg] Omeprazole [PriLOSEC] 20 mg PO DAILY 02/25/21 09/07/23 metFORMIN HCL [Glucophage] 500 mg PO DAILY 02/14/22 09/07/23 Albuterol Inhaler [Ventolin Hfa 2 puff INHALATION Q4H PRN 10/10/22 09/07/23 Inhaler] Budesonide/Formoterol Fumarate 2 puff INHALATION BID 10/10/22 09/07/23 [Symbicort 160-4.5 Mcg Inhaler] Cholecalciferol [Vitamin D3 (25 25 mcg PO DAILY 10/10/22 09/07/23 Mcg = 1000 Iu)] Famotidine 40 mg PO HS 10/10/22 09/07/23 Ipratropium [place] [Ipratropium 1 spray NASAL DAILY 10/10/22 09/07/23 [place] 0.03%] Melatonin 5 mg PO HS 10/10/22 09/07/23 Sertraline [Zoloft] 100 mg PO DAILY 10/10/22 09/07/23 Tamsulosin [Flomax] 0.4 mg PO DAILY 10/10/22 09/07/23 lisinopriL [Zestril] 5 mg PO HS 10/10/22 09/07/23 lisinopriL [Zestril] 10 mg PO QAM 10/10/22 09/07/23 traZODone HCL 300 mg PO HS 10/10/22 09/07/23 Allergies Allergy/AdvReac Type Severity Reaction Status Date / Time No Known Allergies Allergy Verified 01/01/24 10:15 Review of Systems ROS Statement: Those systems with pertinent positive or pertinent negative responses have been documented in the HPI. ROS Other: All systems not noted in ROS Statement are negative. Constitutional: Reports: chills. Denies: fever Eyes: Denies: eye pain ENT: Reports: congestion. Denies: ear pain Respiratory: Reports: cough, dyspnea Cardiovascular: Denies: chest pain Endocrine: Reports: fatigue, polydipsia, polyuria Gastrointestinal: Denies: abdominal pain Genitourinary: Denies: dysuria Musculoskeletal: Denies: back pain Skin: Denies: rash Past Medical History Past Medical History: Chest Pain / Angina, Diabetes Mellitus, GERD/Reflux, Hyperlipidemia, Hypertension, Osteoarthritis (OA), Prostate Disorder, Sleep Apnea/CPAP/BIPAP Additional Past Medical History / Comment(s): COPD/Emphysema, O2 use 29/11, bilateral hearing aid use, blood clot in splenic vein, hx pancreatitis, constipation, cyst on pancreas, no CPAP use. Adominal aortic aneursym. History of Any Multi-Drug Resistant Organisms: None Reported Past Surgical History: Back Surgery, Tonsillectomy Additional Past Surgical History / Comment(s): Back surgery X5(fusion, laminectomy, cage), Myelogram X4 presurgical, colonoscopy. Past Anesthesia/Blood Transfusion Reactions: No Reported Reaction Past Psychological History: No Psychological Hx Reported Smoking Status: Former smoker Past Alcohol Use History: Occasional Past Drug Use History: None Reported - Past Family History Mother Family Medical History: No Reported History General Exam Limitations: no limitations General appearance: alert, in no apparent distress Head exam: Present: normocephalic Eye exam: Present: normal appearance Neck exam: Present: normal inspection Respiratory exam: Present: decreased breath sounds Cardiovascular Exam: Present: regular rate, normal rhythm GI/Abdominal exam: Present: soft. Absent: tenderness Extremities exam: Present: normal inspection. Absent: pedal edema, calf tenderness Neurological exam: Present: alert. Absent: motor sensory deficit Psychiatric exam: Present: normal affect, normal mood Skin exam: Present: normal color Course Vital Signs 01/01/24 01/01/24 01/01/24 10:12 10:36 11:53 Temperature 97.3 F L Pulse Rate 84 72 60 Respiratory 20 20 18 Rate Blood Pressure 116/70 101/73 144/89 O2 Sat by Pulse 100 99 98 Oximetry EKG Findings - EKG Results: EKG: interpreted by ERMD, sinus rhythm, normal axis, normal QRS, normal ST/T Medical Decision Making - Medical Decision Making Was pt. sent in by a medical professional or institution (BASHIR Chang, CLINICAL RADIOLOGIST, urgent care, hospital, or usp...) When possible be specific @ -No Did you speak to anyone other than the patient for history (EMS, parent, family, police, friend...)? What history was obtained from this source @ -No Did you review nursing and triage notes (agree or disagree)? Why? @ -I reviewed and agree with nursing and triage notes Were old charts reviewed (outside hosp., previous admission, EMS record, old EKG, old radiological studies, urgent care reports/EKG's, usp records)? Report findings @ -Old chart not available secondary to computer system being down Differential Diagnosis (chest pain, altered mental status, abdominal pain women, abdominal pain men, vaginal bleeding, weakness, fever, dyspnea, syncope, headache, dizziness, GI bleed, back pain, seizure, CVA, palpatations, mental health, musculoskeletal)? @ -Differential Dyspnea: Coronary syndrome, arrhythmia, tamponade, asthma, COPD, pulmonary embolism, pneumonia, pneumothorax, pulmonary effusion, anaphylaxis, diabetic ketoacidosis, flailed chest, pulmonary contusion, diaphragmatic rupture, anemia, neuromuscular, this is not meant to be an all-inclusive list. EKG interpreted by me (3pts min.). @ -As above X-rays interpreted by me (1pt min.). @ -Chest x-ray shows nonspecific infiltrate CT interpreted by me (1pt min.). @ -None done U/S interpreted by me (1pt. min.). @ -None done What testing was considered but not performed or refused? (CT, X-rays, U/S, labs)? Why? @ -COVID however patient tested positive twice at home What meds were considered but not given or refused? Why? @ -None Did you discuss the management of the patient with other professionals (professionals i.e. , PA, CLINICAL RADIOLOGIST, lab, RT, psych nurse, high school social science teacher, v belt inspector, teacher, chemistry technical officer, field case manager)? Give summary @ -Case discussed with Dr. Jerome who will admit covering Dr. Shanks Was smoking cessation discussed for >3mins.? @ -No Was critical care preformed (if so, how long)? @ -No Were there social determinants of health that impacted care today? How? (Homelessness, low income, unemployed, alcoholism, drug addiction, transportation, low edu. Level, literacy, decrease access to med. care, intermediate, rehab)? @ -No Was there de-escalation of care discussed even if they declined (Discuss DNR or withdrawal of care, Hospice)? DNR status @ -No What co-morbidities impacted this encounter? (DM, HTN, Smoking, COPD, CAD, Cancer, CVA, ARF, Chemo, Hep., AIDS, mental health diagnosis, sleep apnea, morbid obesity)? @ -History of COPD and diabetes Was patient admitted / discharged? Hospital course, mention meds given and route, prescriptions, significant lab abnormalities, going to OR and other pertinent info. @ -Patient presents with fatigue and hyperglycemia and dyspnea. Patient does have COPD on home oxygen. Patient tested positive for COVID-19 infection. Bashir sewell will be admitted with further treatment for hyperglycemia, vitamins and steroids. Undiagnosed new problem with uncertain prognosis? @ -No Drug Therapy requiring intensive monitoring for toxicity (Heparin, Nitro, Insulin, Cardizem)? @ -No Were any procedures done? @ -No Diagnosis/symptom? @ -COVID-19, COPD, hyperglycemia Acute, or Chronic, or Acute on Chronic? @ -Acute, acute on chronic, acute Uncomplicated (without systemic symptoms) or Complicated (systemic symptoms)? @ -Default Side effects of treatment? @ -No Exacerbation, Progression, or Severe Exacerbation? @ -COPD exacerbation Poses a threat to life or bodily function? How? (Chest pain, USA, DC, pneumonia, PE, COPD, DKA, ARF, appy, cholecystitis, CVA, Diverticulitis, Homicidal, Suicidal, threat to staff... and all critical care pts) @ -Pulmonary function - Lab Data Result diagrams: 01/01/24 10:49 01/01/24 10:49 Lab Results 01/01/24 01/01/24 01/01/24 Range/Units 10:18 10:49 10:49 WBC 8.8 (3.8-10.6) k/uL RBC 4.12 L (4.30-5.90) m/uL Hgb 12.6 L (13.0-17.5) gm/dL Hct 39.1 (39.0-53.0) % MCV 94.9 (80.0-100.0) fL MCH 30.5 (25.0-35.0) pg MCHC 32.2 (31.0-37.0) g/dL RDW 13.3 (11.5-15.5) % Plt Count 352 (150-450) k/uL MPV 7.1 Neutrophils % 81 % Lymphocytes % 11 % Monocytes % 5 % Eosinophils % 2 % Basophils % 0 % Neutrophils # 7.1 (1.3-7.7) k/uL Lymphocytes # 1.0 (1.0-4.8) k/uL Monocytes # 0.4 (0-1.0) k/uL Eosinophils # 0.2 (0-0.7) k/uL Basophils # 0.0 (0-0.2) k/uL Hypochromasia Slight PT 10.9 (10.0-12.5) sec INR 1.0 (<1.2) APTT 22.8 (22.0-30.0) sec D-Dimer 0.43 (<0.60) mg/L FEU Sodium (137-145) mmol/L Potassium (3.5-5.1) mmol/L Chloride (98-107) mmol/L Carbon Dioxide (22-30) mmol/L Anion Gap mmol/L BUN (9-20) mg/dL Creatinine (0.66-1.25) mg/dL Est GFR (CKD-EPI)AfAm (>60 ml/min/1.73 sqM) Est GFR (CKD-EPI)NonAf (>60 ml/min/1.73 sqM) Glucose (74-99) mg/dL POC Glucose (mg/dL) 503 H* (70-110) mg/dL POC Glu Sales And Service Consultant ID Carol Orlando Lactic Ac Sepsis Rflx Plasma Lactic Acid Felipe (0.7-2.0) mmol/L Calcium (8.4-10.2) mg/dL Magnesium (1.6-2.3) mg/dL Total Bilirubin (0.2-1.3) mg/dL AST (17-59) U/L ALT (4-49) U/L Alkaline Phosphatase (38-126) U/L Troponin I (0.000-0.034) ng/mL Total Protein (6.3-8.2) g/dL Albumin (3.5-5.0) g/dL Acetone, Qual (Negative) 01/01/24 01/01/24 01/01/24 Range/Units 10:49 10:49 10:49 WBC (3.8-10.6) k/uL RBC (4.30-5.90) m/uL Hgb (13.0-17.5) gm/dL Hct (39.0-53.0) % MCV (80.0-100.0) fL MCH (25.0-35.0) pg MCHC (31.0-37.0) g/dL RDW (11.5-15.5) % Plt Count (150-450) k/uL MPV Neutrophils % % Lymphocytes % % Monocytes % % Eosinophils % % Basophils % % Neutrophils # (1.3-7.7) k/uL Lymphocytes # (1.0-4.8) k/uL Monocytes # (0-1.0) k/uL Eosinophils # (0-0.7) k/uL Basophils # (0-0.2) k/uL Hypochromasia PT (10.0-12.5) sec INR (<1.2) APTT (22.0-30.0) sec D-Dimer (<0.60) mg/L FEU Sodium 128 L (137-145) mmol/L Potassium 4.9 (3.5-5.1) mmol/L Chloride 97 L (98-107) mmol/L Carbon Dioxide 19 L (22-30) mmol/L Anion Gap 12 mmol/L BUN 23 H (9-20) mg/dL Creatinine 0.81 (0.66-1.25) mg/dL Est GFR (CKD-EPI)AfAm >90 (>60 ml/min/1.73 sqM) Est GFR (CKD-EPI)NonAf 89 (>60 ml/min/1.73 sqM) Glucose 540 H* (74-99) mg/dL POC Glucose (mg/dL) (70-110) mg/dL POC Glu Sales And Service Consultant ID Lactic Ac Sepsis Rflx Plasma Lactic Acid Felipe 5.7 H* (0.7-2.0) mmol/L Calcium 8.9 (8.4-10.2) mg/dL Magnesium 1.5 L (1.6-2.3) mg/dL Total Bilirubin 0.4 (0.2-1.3) mg/dL AST 21 (17-59) U/L ALT 24 (4-49) U/L Alkaline Phosphatase 109 (38-126) U/L Troponin I <0.012 (0.000-0.034) ng/mL Total Protein 5.7 L (6.3-8.2) g/dL Albumin 3.6 (3.5-5.0) g/dL Acetone, Qual Negative (Negative) 01/01/24 01/01/24 Range/Units 11:32 11:58 WBC (3.8-10.6) k/uL RBC (4.30-5.90) m/uL Hgb (13.0-17.5) gm/dL Hct (39.0-53.0) % MCV (80.0-100.0) fL MCH (25.0-35.0) pg MCHC (31.0-37.0) g/dL RDW (11.5-15.5) % Plt Count (150-450) k/uL MPV Neutrophils % % Lymphocytes % % Monocytes % % Eosinophils % % Basophils % % Neutrophils # (1.3-7.7) k/uL Lymphocytes # (1.0-4.8) k/uL Monocytes # (0-1.0) k/uL Eosinophils # (0-0.7) k/uL Basophils # (0-0.2) k/uL Hypochromasia PT (10.0-12.5) sec INR (<1.2) APTT (22.0-30.0) sec D-Dimer (<0.60) mg/L FEU Sodium (137-145) mmol/L Potassium (3.5-5.1) mmol/L Chloride (98-107) mmol/L Carbon Dioxide (22-30) mmol/L Anion Gap mmol/L BUN (9-20) mg/dL Creatinine (0.66-1.25) mg/dL Est GFR (CKD-EPI)AfAm (>60 ml/min/1.73 sqM) Est GFR (CKD-EPI)NonAf (>60 ml/min/1.73 sqM) Glucose (74-99) mg/dL POC Glucose (mg/dL) 524 H* (70-110) mg/dL POC Glu Sales And Service Consultant ID Clint Palma Lactic Ac Sepsis Rflx Y Plasma Lactic Acid Felipe (0.7-2.0) mmol/L Calcium (8.4-10.2) mg/dL Magnesium (1.6-2.3) mg/dL Total Bilirubin (0.2-1.3) mg/dL AST (17-59) U/L ALT (4-49) U/L Alkaline Phosphatase (38-126) U/L Troponin I (0.000-0.034) ng/mL Total Protein (6.3-8.2) g/dL Albumin (3.5-5.0) g/dL Acetone, Qual (Negative) Disposition Clinical Impression: Hyperglycemia, COPD (chronic obstructive pulmonary disease), COVID-19 Disposition: ADMITTED IP TO THIS HOSP Is patient prescribed a controlled substance at d/c from ED?: No Referrals: Dennis Benjamin MD [Primary Care Provider] - 1-2 days Time of Disposition: 13:39
[2024-01-01 11:01] LABS: Basophils % (A) 0 %; Eosinophils # (A) 0.2 k/uL (0-0.7); Eosinophils % (A) 2 %; HCT 39.1 % (39.0-53.0); HGB 12.6 gm/dL (13.0-17.5); Hypochromasia Slight; Lymphocytes % (A) 11 %; MCH 30.5 pg (25.0-35.0); MCHC 32.2 g/dL (31.0-37.0); MCV 94.9 fL (80.0-100.0); Mean Platelet Volume 7.1; Monocytes # (A) 0.4 k/uL (0-1.0); Monocytes % (A) 5 %; Neutrophils # (A) 7.1 k/uL (1.3-7.7); Neutrophils % (A) 81 %; Platelet Count 352 k/uL (150-450); RBC 4.12 m/uL (4.30-5.90); RDW 13.3 % (11.5-15.5); WBC 8.8 k/uL (3.8-10.6)
[2024-01-01] MEDS: ASCORBIC ACID 500 MG TAB PO SCH (11:08)
[2024-01-01] MEDS: SODIUM CHLORIDE 0.9% 1,000 ML IV STA (11:08)
[2024-01-01] MEDS: CHOLECALCIFEROL 125 MCG (5000 IU) TABLET PO SCH (11:08)
[2024-01-01] MEDS: DEXAMETHASONE SOD PHOSPHATE 10 MG/ML 1 ML VIAL IVP SCH (11:08)
[2024-01-01] MEDS: ZINC SULFATE 220 MG CAP PO SCH (11:09)
[2024-01-01 11:11] LABS: AST 21 U/L (17-59); African American GFR (CKD) >90 (>60 ml/min/1.73 sqM); Albumin 3.6 g/dL (3.5-5.0); Alkaline Phosphatase 109 U/L (38-126); Anion Gap 12 mmol/L; Blood Urea Nitrogen 23 mg/dL (9-20); Calcium 8.9 mg/dL (8.4-10.2); Carbon Dioxide 19 mmol/L (22-30); Chloride 97 mmol/L (98-107); Magnesium 1.5 mg/dL (1.6-2.3); Non-African American GFR(CKD) 89 (>60 ml/min/1.73 sqM); Potassium 4.9 mmol/L (3.5-5.1); Sodium 128 mmol/L (137-145); Total Bilirubin 0.4 mg/dL (0.2-1.3); Total Protein 5.7 g/dL (6.3-8.2)
[2024-01-01 11:15] LABS: Partial Thromboplastin Time 22.8 sec (22.0-30.0); Prothrombin Time 10.9 sec (10.0-12.5)
[2024-01-01 11:17] LABS: ALT 24 U/L (4-49)
[2024-01-01 11:31] LABS: Glucose 540 mg/dL (74-99)
[2024-01-01] MEDS: ALBUTEROL HFA INHALER INHALATION STA (11:32)
--- NOTE | 2024-01-01 11:43 | XR ---
EXAMINATION TYPE: XR chest 2V DATE OF EXAM: 01/01/2024 COMPARISON: 03/29/2023, 12/31/2023 HISTORY: 73 year-old male shortness of breath, difficulty breathing TECHNIQUE: PA and lateral views FINDINGS: Heart normal size. Mildly tortuous thoracic aorta unchanged. Mild hyperinflation. Some medial right b asilar patchy density remains. No progressive opacity. No pleural effusion. IMPRESSION: COPD. No worsening pneumonia or infiltrate. Some minimal patchy atelectasis or infiltrate remains at the medial right base.
[2024-01-01] MEDS: INSULIN REGULAR 100 UNIT/ML VIAL (IV) IV ONE (11:59)
[2024-01-01 12:01] LABS: Glucose,Whole Blood 524 mg/dL (70-110)
[2024-01-01] MEDS: SODIUM CHLORIDE 0.9% 500 ML 500 ML IV ONE (12:05)
[2024-01-01] MEDS ORDERED: IPRATROPIUM-ALBUTEROL 3 ML NEB INHALATION PRN (13:39)
[2024-01-01] MEDS ORDERED: NALOXONE 0.4 MG/ML 1 ML VIAL IV PRN ×2 (13:39→14:29)
[2024-01-01] MEDS ORDERED: DEXTROSE 50% SYRINGE 50 ML IVP PRN ×2 (13:43)
[2024-01-01 13:51] LABS: Glucose,Whole Blood 404 mg/dL (70-110)
[2024-01-01] MEDS: SODIUM CHLORIDE 0.9% 1,000 ML IV SCH ×2 (14:47→20:25)
--- NOTE | 2024-01-01 14:50 | P.HPIM ---
History of Present Illness H&P Date: 01/01/24 Chief Complaint: shortness of breath 73-year-old male presenting to the emergency department with concerns with not feeling well. He has been having worsening shortness of breath, associated with cough and congestion and fatigue over the past 4 days. Patient tested COVID-po sitive 4 days ago. Patient was in the emergency department last night with hyperglycemia. Chest x-ray was done. he was given some insulin and was discharged home. However patient continued to increasing shortness of breath associated with sweats and nausea. Therefore he presented back to the emergency department. Denies fevers or vomiting. Denies chest pain. Denies dizziness. No focal weakness or numbness. Patient does have history of underlying COPD and is on home oxygen. Patient has polyuria and polydipsia as well. Blood sugar prior to arrival today was 503, in the emergency department was 524, was given some insulin and subsequently went down to 404. Review of Systems complete review of system performed, pertinent positives per HPI, otherwise negative Past Medical History Past Medical History: Chest Pain / Angina, Diabetes Mellitus, GERD/Reflux, Hyperlipidemia, Hypertension, Osteoarthritis (OA), Prostate Disorder, Sleep Apnea/CPAP/BIPAP Additional Past Medical History / Comment(s): COPD/Emphysema, O2 use 29/11, bilateral hearing aid use, blood clot in splenic vein, hx pancreatitis, constipation, cyst on pancreas, no CPAP use. Adominal aortic aneursym. History of Any Multi-Drug Resistant Organisms: None Reported Past Surgical History: Back Surgery, Tonsillectomy Additional Past Surgical History / Comment(s): Back surgery X5(fusion, laminectomy, cage), Myelogram X4 presurgical, colonoscopy. Past Anesthesia/Blood Transfusion Reactions: No Reported Reaction Past Psychological History: No Psychological Hx Reported Smoking Status: Former smoker Past Alcohol Use History: Occasional Past Drug Use History: None Reported - Past Family History Mother Family Medical History: No Reported History Medications and Allergies Home Medications Medication Instructions Recorded Confirmed Type Apixaban [Eliquis] 5 mg PO BID 10/02/20 01/01/24 History Atorvastatin [Lipitor] 80 mg PO HS 10/02/20 01/01/24 History oxyCODONE-APAP 10-325MG [Percocet 1 tab PO Q4H PRN 10/02/20 01/01/24 History 10-325 mg] metFORMIN HCL [Glucophage] 1,000 mg PO BID 02/14/22 01/01/24 History Albuterol Inhaler [Ventolin Hfa 2 puff INHALATION RT-Q6H PRN 10/10/22 01/01/24 History Inhaler] Budesonide/Formoterol Fumarate 2 puff INHALATION RT-BID PRN 10/10/22 01/01/24 History [Symbicort 160-4.5 Mcg Inhaler] Cholecalciferol [Vitamin D3 (25 25 mcg PO DAILY 10/10/22 01/01/24 History Mcg = 1000 Iu)] Sertraline [Zoloft] 100 mg PO DAILY 10/10/22 01/01/24 History Tamsulosin [Flomax] 0.4 mg PO DAILY 10/10/22 01/01/24 History lisinopriL [Zestril] 5 mg PO DAILY 10/10/22 01/01/24 History lisinopriL [Zestril] 10 mg PO DAILY 10/10/22 01/01/24 History traZODone HCL 300 mg PO HS 10/10/22 01/01/24 History Fluticasone Nasal [place] [Flonase 1 spray EA NOSTRIL DAILY 01/01/24 01/01/24 History Nasal [place]] Melatonin 10 mg PO HS 01/01/24 01/01/24 History Mirabegron [Myrbetriq] 50 mg PO DAILY 01/01/24 01/01/24 History busPIRone HCL 5 mg PO BID 01/01/24 01/01/24 History Allergies Allergy/AdvReac Type Severity Reaction Status Date / Time No Known Allergies Allergy Verified 01/01/24 13:38 Physical Exam Vitals: Vital Signs Temp Pulse Resp BP Pulse Ox 01/01/24 11:53 60 18 144/89 98 01/01/24 10:36 72 20 101/73 99 01/01/24 10:12 97.3 F L 84 20 116/70 100 Intake and Output 12/31/23 01/01/24 01/01/24 22:59 06:59 14:59 Other: Weight 85.275 kg Constitutional: No acute distress, conversant, pleasant Eyes: Anicteric sclerae, moist conjunctiva, no lid-lag Pupils equal round reactive to light ENMT: NC/AT Oropharynx clear, no erythema, exudates Neck: Supple, FROM, no masses, or JVD No carotid bruits No thyromegaly Lungs: Clear to auscultation Clear to percussion Normal respiratory effort, no accessory muscle use Cardiovascular: Heart regular in rate and rhythm, No murmurs, gallops, or rubs No peripheral edema Abdominal: Soft Nontender, no guarding, rebound or rigidity Abdomen moving with respiration Normoactive bowel sounds No hepatomegaly, No splenomegaly No palpable mass No abdominal wall hernia noted Skin: Normal temperature, tone, texture, turgor No induration No subcutaneous nodules No rash, lesions No ulcers Extremities: No digital cyanosis No clubbing Pedal pulses intact and symmetrical Radial pulses intact and symmetrical No calf tenderness Psychiatric: Alert and oriented to person, place and time Appropriate affect fair judgement Neuro Muscles Strength 5/5 in all 4 extremities Sensation to light touch grossly present throughout Cranial nerves II-XII grossly intact No focal sensory deficits Lymphatics: no palpable cervical or supraclavicular , or inguinal lymph nodes Results CBC & Chem 7: 01/01/24 10:49 01/01/24 10:49 Labs: Abnormal Lab Results - Last 24 Hours (Table) 01/01/24 01/01/24 01/01/24 Range/Units 10:18 10:49 10:49 RBC 4.12 L (4.30-5.90) m/uL Hgb 12.6 L (13.0-17.5) gm/dL Sodium 128 L (137-145) mmol/L Chloride 97 L (98-107) mmol/L Carbon Dioxide 19 L (22-30) mmol/L BUN 23 H (9-20) mg/dL Glucose 540 H* (74-99) mg/dL POC Glucose (mg/dL) 503 H* (70-110) mg/dL Plasma Lactic Acid Felipe (0.7-2.0) mmol/L Magnesium 1.5 L (1.6-2.3) mg/dL Total Protein 5.7 L (6.3-8.2) g/dL 01/01/24 01/01/24 01/01/24 Range/Units 10:49 11:58 13:50 RBC (4.30-5.90) m/uL Hgb (13.0-17.5) gm/dL Sodium (137-145) mmol/L Chloride (98-107) mmol/L Carbon Dioxide (22-30) mmol/L BUN (9-20) mg/dL Glucose (74-99) mg/dL POC Glucose (mg/dL) 524 H* 404 H (70-110) mg/dL Plasma Lactic Acid Felipe 5.7 H* (0.7-2.0) mmol/L Magnesium (1.6-2.3) mg/dL Total Protein (6.3-8.2) g/dL Assessment and Plan Plan: COVID-19 Acute exacerbation of COPD start Decadron 6 mg IV daily DuoNeb's Continue Symbicort Pulmonary consultation Diabetes type 2 with hyperglycemia Hold metformin Check A1c Diabetic diet Start Lantus 12 units daily first dose now Sliding scale insulin moderate dose with blood sugar checks every before meals and at bedtime 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
[2024-01-01 15:06] LABS: Glucose,Whole Blood 348 mg/dL (70-110)
[2024-01-01] MEDS: INSULIN REGULAR 100 UNIT/ML VIAL (IM/SQ) SQ ONE (15:06)
[2024-01-01] MEDS: INSULIN DETEMIR (LEVEMIR) 100 UNIT/ML SYR SQ SCH (15:06)
[2024-01-01] MEDS ORDERED: ALBUTEROL HFA INHALER INHALATION PRN (16:01)
[2024-01-01 16:33] LABS: Glucose,Whole Blood 320 mg/dL (70-110)
[2024-01-01] MEDS ORDERED: oxyCODONE-APAP 10-325MG 1 EACH TAB ONE (16:35)
[2024-01-01] MEDS: ALBUTEROL HFA INHALER INHALATION SCH (16:36)
[2024-01-01] MEDS: INSULIN ASPART (NovoLOG) 100 UNIT/ML VIAL SQ SCH (16:40)
[2024-01-01] MEDS: oxyCODONE-APAP 10-325MG 1 EACH TAB PO PRN (16:40)
[2024-01-01] MEDS ORDERED: INSULIN ASPART (NovoLOG) 100 UNIT/ML VIAL SQ SCH (17:30)
[2024-01-01 18:55] LABS: Glucose,Whole Blood 254 mg/dL (70-110)
[2024-01-01] MEDS: IPRATROPIUM-ALBUTEROL 3 ML NEB INHALATION SCH (18:57)
[2024-01-01] MEDS: SYMBICORT 160-4.5 MCG INHALER INHALATION SCH (19:53)
[2024-01-01] MEDS: SODIUM CHLORIDE 0.9% 1,000 ML IV ONE (20:24)
[2024-01-01 21:32] LABS: Glucose,Whole Blood 251 mg/dL (70-110)
[2024-01-01] MEDS: APIXABAN 5 MG TAB PO SCH (21:53)
[2024-01-01] MEDS: busPIRone HCl 5 MG TAB PO SCH (21:53)
[2024-01-01] MEDS: traZODone HCL 100 MG TAB PO SCH (21:53)
[2024-01-01] MEDS: MELATONIN 5 MG TABLET PO SCH (21:54)
[2024-01-01] MEDS: ATORVASTATIN 80 MG TAB PO SCH (21:54)
[2024-01-02 00:26] LABS: Glucose,Whole Blood 301 mg/dL (70-110)
[2024-01-02] MEDS: ACETAMINOPHEN TAB 325 MG TAB PO PRN (01:25)
[2024-01-02] MEDS: INSULIN ASPART (NovoLOG) 100 UNIT/ML VIAL SQ STA (01:26)
--- NOTE | 2024-01-02 02:29 | P.CNPUL ---
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 Patient presented the emergency department yesterday morning with URI-like symptoms including runny nose, postnasal drip, nonproductive cough, fatigue, and mild nausea. Denies actual vomiting or abdominal pain. His blood sugars were running high at home. Admits polydipsia, polyuria. States that he did take a home COVID test on Tuesday which was positive. Has not received any outpatient treatment. He is being evaluated in the emergency department. He is on 2 L/min nasal cannula, which is his baseline flow. He is in no respiratory distress. Denies being short of breath. States his cough is improved, and has no sputum production. Denies any fevers. Denies any chest pain. States this is his first COVID infection, but is up-to-date on his COVID vaccinations. He also takes Eliquis on an outpatient basis. D-dimer was low. Chest x-ray does not show any focal infiltrates or evidence of COVID- pneumonia. CBC: WBC count 8.8, hemoglobin 12.6, hematocrit 39.1, platelets 352. CMP: Sodium 128, potassium 4.9, chloride 97, serum bicarb 19, BUN 23, creatinine 0.81, glucose 540. Acetone negative. Currently, on sliding scale insulin with long-acting coverage. Lactic acid 3. Normal saline infusing at 130 mL/h. LFTs unremarkable. Troponin less than 0.012. EKG showing normal sinus rhythm without any obvious acute ischemic changes. Afebrile. Hemodynamics are stable. Review of Systems REVIEW OF SYSTEMS: CONSTITUTIONAL: Denies any recent significant weight loss or weight gain. EYES: Denies change in vision. EARS, NOSE, MOUTH, THROAT: Denies headaches, denies sore throat. CARDIOVASCULAR: Denies chest pain, palpitations or syncopal episodes. RESPIRATORY: See HPI GASTROINTESTINAL: Denies change in appetite, abdominal pain, vomiting, or ricardo rrhea. Admits mild nausea GENITOURINARY: Denies hematuria, denies infections. Admits polyuria with associated polydipsia MUSKULOSKELETAL: Denies pain, denies swelling. INTEGUMENTARY: Denies rash, denies eczema. NEUROLOGICAL: Denies recent memory loss, no recent seizure activity. PSYCHIATRIC: Denies anxiety, denies depression. HEMATOLOGIC/LYMPHATIC: Denies anemia, denies enlarged lymph node Past Medical History Past Medical History: Chest Pain / Angina, Diabetes Mellitus, GERD/Reflux, Hyperlipidemia, Hypertension, Osteoarthritis (OA), Prostate Disorder, Sleep Apnea/CPAP/BIPAP Additional Past Medical History / Comment(s): COPD/Emphysema, O2 use 29/11, bilateral hearing aid use, blood clot in splenic vein, hx pancreatitis, con stipation, cyst on pancreas, no CPAP use. Adominal aortic aneursym. History of Any Multi-Drug Resistant Organisms: None Reported Past Surgical History: Back Surgery, Tonsillectomy Additional Past Surgical History / Comment(s): Back surgery X5(fusion, laminectomy, cage), Myelogram X4 presurgical, colonoscopy. Past Anesthesia/Blood Transfusion Reactions: No Reported Reaction Past Psychological History: No Psychological Hx Reported Smoking Status: Former smoker Past Alcohol Use History: Occasional Additional Past Alcohol Use History / Comment(s): STARTED SMOKING AGE 19, QUIT AT AGE 41, SMOKED APPROX 1PPD. Past Drug Use History: None Reported - Past Family History Mother Family Medical History: No Reported History Medications and Allergies Home Medications Medication Instructions Recorded Confirmed Type Apixaban [Eliquis] 5 mg PO BID 10/02/20 01/01/24 History Atorvastatin [Lipitor] 80 mg PO HS 10/02/20 01/01/24 History oxyCODONE-APAP 10-325MG [Percocet 1 tab PO Q4H PRN 10/02/20 01/01/24 History 10-325 mg] metFORMIN HCL [Glucophage] 1,000 mg PO BID 02/14/22 01/01/24 History Albuterol Inhaler [Ventolin Hfa 2 puff INHALATION RT-Q6H PRN 10/10/22 01/01/24 History Inhaler] Budesonide/Formoterol Fumarate 2 puff INHALATION RT-BID PRN 10/10/22 01/01/24 History [Symbicort 160-4.5 Mcg Inhaler] Cholecalciferol [Vitamin D3 (25 25 mcg PO DAILY 10/10/22 01/01/24 History Mcg = 1000 Iu)] Sertraline [Zoloft] 100 mg PO DAILY 10/10/22 01/01/24 History Tamsulosin [Flomax] 0.4 mg PO DAILY 10/10/22 01/01/24 History lisinopriL [Zestril] 5 mg PO DAILY 10/10/22 01/01/24 History lisinopriL [Zestril] 10 mg PO DAILY 10/10/22 01/01/24 History traZODone HCL 300 mg PO HS 10/10/22 01/01/24 History Fluticasone Nasal [place] [Flonase 1 spray EA NOSTRIL DAILY 01/01/24 01/01/24 History Nasal [place]] Melatonin 10 mg PO HS 01/01/24 01/01/24 History Mirabegron [Myrbetriq] 50 mg PO DAILY 01/01/24 01/01/24 History busPIRone HCL 5 mg PO BID 01/01/24 01/01/24 History Allergies Allergy/AdvReac Type Severity Reaction Status Date / Time No Known Allergies Allergy Verified 01/01/24 13:38 Physical Exam Vitals: Vital Signs Temp Pulse Resp BP BP Pulse Ox 01/02/24 01:06 97.5 F L 16 122/70 98 01/02/24 00:04 61 18 131/78 98 01/01/24 21:30 60 20 100/54 98 01/01/24 20:00 16 01/01/24 18:46 70 18 136/85 98 01/01/24 16:29 98.1 F 55 L 18 122/96 99 01/01/24 15:05 55 L 18 135/86 99 01/01/24 14:00 54 L 18 117/62 98 01/01/24 13:00 53 L 18 126/79 99 01/01/24 11:53 60 18 144/89 98 01/01/24 10:36 72 20 101/73 99 01/01/24 10:12 97.3 F L 84 20 116/70 100 Intake and Output 01/01/24 01/01/24 01/02/24 14:59 22:59 06:59 Other: Weight 85.275 kg 85.275 kg GENERAL EXAM: Alert, 73-year-old white male, sitting at the edge of the bed, comfortable in no apparent distress. HEAD: Normocephalic and atraumatic EYES: Normal reaction of pupils, equal size. NOSE: Clear with pink turbinates. THROAT: No erythema or exudates. NECK: No masses, no JVD. CHEST: No chest wall deformity. LUNGS: Equal air entry with no crackles, wheeze, rhonchi or dullness. On 2 L/min nasal cannula. No conversational dyspnea or accessory muscle use.. CVS: S1 and S2 normal with no audible murmur, regular rhythm. No extra heart chilango nds ABDOMEN: No hepatosplenomegaly, active bowel sounds, no guarding or rigidity. SPINE: No scoliosis or deformity SKIN: No rashes CENTRAL NERVOUS SYSTEM: No focal deficits, tone is normal in all 4 extremities. EXTREMITIES: There is no peripheral edema, clubbing, or cyanosis. Peripheral pulses are intact. Results - Laboratory Findings CBC and BMP: 01/01/24 10:49 01/01/24 10:49 PT/INR, D-dimer PT 10.9 sec (10.0-12.5) 01/01/24 10:49 INR 1.0 (<1.2) 01/01/24 10:49 D-Dimer 0.43 mg/L FEU (<0.60) 01/01/24 10:49 Abnormal lab findings: Abnormal Labs 01/01/24 01/01/24 01/01/24 10:18 10:49 10:49 RBC 4.12 L Hgb 12.6 L Sodium 128 L Chloride 97 L Carbon Dioxide 19 L BUN 23 H Glucose 540 H* POC Glucose (mg/dL) 503 H* Plasma Lactic Acid Felipe Magnesium 1.5 L Total Protein 5.7 L 01/01/24 01/01/24 01/01/24 10:49 11:58 13:50 RBC Hgb Sodium Chloride Carbon Dioxide BUN Glucose POC Glucose (mg/dL) 524 H* 404 H Plasma Lactic Acid Felipe 5.7 H* Magnesium Total Protein 01/01/24 01/01/24 01/01/24 14:39 15:05 16:31 RBC Hgb Sodium Chloride Carbon Dioxide BUN Glucose POC Glucose (mg/dL) 348 H 320 H Plasma Lactic Acid Felipe 2.7 H* Magnesium Total Protein 01/01/24 01/01/24 01/01/24 17:45 18:54 21:30 RBC Hgb Sodium Chloride Carbon Dioxide BUN Glucose POC Glucose (mg/dL) 254 H 251 H Plasma Lactic Acid Felipe 2.7 H* Magnesium Total Protein 01/01/24 01/02/24 21:38 00:24 RBC Hgb Sodium Chloride Carbon Dioxide BUN Glucose POC Glucose (mg/dL) 301 H Plasma Lactic Acid Felipe 3.0 H* Magnesium Total Protein - Diagnostic Findings Chest x-ray: image reviewed Assessment and Plan Assessment: Acute COPD exacerbation, secondary to acute COVID infection, chest x-ray does not show any acute infiltrates or evidence of COVID-pneumonia. Patient reportedly tested positive for COVID with home test on Tuesday. Vaccination status is reportedly up-to-date. Severe COPD, most recent FEV1 41% of predicted; normally maintained on Trelegy inhaler, DuoNeb updrafts 4 times a day, and as needed. Chronic hypoxemic respiratory failure, normally maintained on 2 L/min nasal cannula 29/11 Type 2 diabetes mellitus with severe hyperglycemia Pseudohyponatremia Lactic acidemia History of hyperlipidemia History of hypertension History of splanchnic vein thrombosis History of GERD with Deng's esophagus Plan: Patient's medications, labs, chest x-ray reviewed Continue with supplemental oxygen, currently on 2 L/min nasal cannula, this is his baseline flow rate. Continues on Symbicort, Spiriva, and Ventolin HFA inhaler Obtain Cepheid 4-plex Continue supportive treatment May continue Decadron As needed Tylenol for fever Hyperglycemia being managed by admitting, currently on sliding scale with long- acting coverage Home medications already resumed, including Eliquis We will continue to follow I have personally seen and examined the patient, performed the documentation and the assessment and plan as written. Number of minutes spent on the visit:20 Time with Patient: Greater than 30
[2024-01-02 06:40] LABS: Glucose,Whole Blood 276 mg/dL (70-110)
[2024-01-02] MEDS: TIOTROPIUM 2.5 MCG INHALER INHALATION SCH (08:00)
[2024-01-02] MEDS: SERTRALINE 100 MG TAB PO SCH (09:00)
[2024-01-02] MEDS: TAMSULOSIN 0.4 MG CAP.ER.24H PO SCH (09:00)
[2024-01-02] MEDS: lisinopriL 5 MG TAB PO SCH (09:00)
[2024-01-02] MEDS: CHOLECALCIFEROL 25 MCG (1000 IU) TABLET PO SCH (09:00)
[2024-01-02 09:05] VITALS: BP 143/88; PULSE 59; RESP 18; TEMP 98
[2024-01-02 09:11] LABS: Basophils # (A) 0.01 X 10*3/uL (0.00-0.10); Basophils % (A) 0.1 %; Eosinophils # (A) 0 X 10*3/uL (0.04-0.35); Eosinophils % (A) 0 %; HCT 33.2 % (39.6-50.0); HGB 11.1 g/dL (13.0-17.0); Lymphocytes # (A) 1.02 X 10*3/uL (0.90-5.00); MCH 30.7 pg (27.0-32.0); MCHC 33.4 g/dL (32.0-37.0); Mean Platelet Volume 9.3 FL (9.5-12.2); Monocytes # (A) 0.66 X 10*3/uL (0.20-1.00); Monocytes % (A) 6.5 %; NRBC Per 100 WBC 0 X 10*3/uL (0.00-0.01); Neutrophils # (A) 8.38 X 10*3/uL (1.80-7.70); Neutrophils % (A) 82.3 %; Platelet Count 292 X 10*3/uL (140-440); RBC 3.61 X 10*6/uL (4.40-5.60); RDW 13.1 % (11.5-14.5); WBC 10.18 X 10*3/uL (4.50-10.00)
[2024-01-02] MEDS: NON FORMULARY DRUG (Mirabegron [Myrbetriq] 50 MG Tab.Er.24h) PO SCH (09:11)
[2024-01-02 09:20] LABS: ALT 15 U/L (10-49); AST 9 U/L (14-35); Albumin 3.5 g/dL (3.8-4.9); Albumin/Globulin Ratio 2.19 Ratio (1.60-3.17); Alkaline Phosphatase 93 U/L (41-126); BUN/Creat Ratio 21.62 Ratio (12.00-20.00); Blood Urea Nitrogen 17.3 mg/dL (9.0-27.0); Calcium 8.3 mg/dL (8.7-10.3); Chloride 102 mmol/L (96-109); Globulin 1.6 g/dL (1.6-3.3); Glucose 280 mg/dL (70-110); Potassium 4.3 mmol/L (3.5-5.5); Sodium 133 mmol/L (135-145); Total Bilirubin <0.2 mg/dL (0.3-1.2); Total Protein 5.1 g/dL (6.2-8.2)
[2024-01-02] MEDS: FLUTICASONE NASAL 50MCG/SPRAY 16GM BTL EA NOSTRIL SCH (10:42)
[2024-01-02] MEDS: SYMBICORT 160-4.5 MCG INHALER INHALATION ONE (11:32)
--- NOTE | 2024-01-02 11:59 | P.DS ---
Providers Date of admission: 01/01/24 13:42 Expected date of discharge: 01/02/24 Attending physician: Jarred Pearson MD Consults: 01/01/24 13:39 Consult Physician Routine Consulting Provider: Omar Díaz Consult Reason/Comments: copd,covid Do you want consulting provider notified?: Yes Primary care physician: Dennis Benjamin MD Hospital Course: 73-year-old male presenting to the emergency department with concerns with not feeling well. He has been having worsening shortness of breath, associated with cough and congestion and fatigue over the past 4 days. Patient tested COVID- positive 4 days ago. Patient was in the emergency department last night with hyperglycemia. Chest x-ray was done. he was given some insulin and was discharged home. However patient continued to increasing shortness of breath associated with sweats and nausea. Therefore he presented back to the emergency department. Denies fevers or vomiting. Denies chest pain. Denies dizziness. No focal weakness or numbness. Patient does have history of underlying COPD and is on home oxygen. Patient has polyuria and polydipsia as well. Blood sugar prior to arrival today was 503, in the emergency department was 524, was given some insulin and subsequently went down to 404. patient was admitted, he was started on subcutaneous insulin with Lantus as well as aspart. Blood sugars the next day were in the 200 range. Sodium level improved as well from 128 to 133 on discharge. Patient was seen by pulmonary as he tested positive for covid. He is on his baseline oxygen 2 L and was not having shortness of breath so he was not given steroids. Patient feeling well today, his A1c came back at 10.9, farxiga will be added to his regimen upon discharge. He will also be initiated on insulin lantus and aspart. He was instructed to follow up with his PCP in 1-2 days after discharge. Discharge diagnoses Covid 19 diabetes type 2, uncontrolled with hyperglycemia Pseudohyponatremia COPD on 2 L at baseline patient was seen and examined on the day of discharge 01/01. Time for discharge 35 minutes. Plan - Discharge Summary New Discharge Prescriptions: New Insulin Aspart 8 units SQ TID 30 Days #10 ml Syringe and Needle,Insulin,1Ml [Insulin Syringe 30G 5/16" 1ml] 1 syr SQ DIRECTED 30 Days #1 pack Insulin Glargine [Lantus Vial] 12 unit SQ DAILY 30 Days #10 ml Dapagliflozin Propanediol [Farxiga] 10 mg PO DAILY 30 Days #30 tablet Continue Atorvastatin [Lipitor] 80 mg PO HS Apixaban [Eliquis] 5 mg PO BID lisinopriL [Zestril] 5 mg PO DAILY Tamsulosin [Flomax] 0.4 mg PO DAILY Sertraline [Zoloft] 100 mg PO DAILY Albuterol Inhaler [Ventolin Hfa Inhaler] 2 puff INHALATION RT-Q6H PRN PRN Reason: Shortness Of Breath Budesonide/Formoterol Fumarate [Symbicort 160-4.5 Mcg Inhaler] 2 puff INHALATION RT-BID PRN PRN Reason: Shortness Of Breath Melatonin 10 mg PO HS busPIRone HCL 5 mg PO BID oxyCODONE-APAP 10-325MG [Percocet 10-325 mg] 1 tab PO Q4H PRN PRN Reason: Pain metFORMIN HCL [Glucophage] 1,000 mg PO BID traZODone HCL 300 mg PO HS Cholecalciferol [Vitamin D3 (25 Mcg = 1000 Iu)] 25 mcg PO DAILY Mirabegron [Myrbetriq] 50 mg PO DAILY Fluticasone Nasal [place] [Flonase Nasal [place]] 1 spray EA NOSTRIL DAILY Discontinued lisinopriL [Zestril] 10 mg PO DAILY Discharge Medication List Apixaban [Eliquis] 5 mg PO BID 10/02/20 [History] Atorvastatin [Lipitor] 80 mg PO HS 10/02/20 [History] oxyCODONE-APAP 10-325MG [Percocet 10-325 mg] 1 tab PO Q4H PRN 10/02/20 [History] metFORMIN HCL [Glucophage] 1,000 mg PO BID 02/14/22 [History] Albuterol Inhaler [Ventolin Hfa Inhaler] 2 puff INHALATION RT-Q6H PRN 10/10/22 [History] Budesonide/Formoterol Fumarate [Symbicort 160-4.5 Mcg Inhaler] 2 puff INHALATION RT-BID PRN 10/10/22 [History] Cholecalciferol [Vitamin D3 (25 Mcg = 1000 Iu)] 25 mcg PO DAILY 10/10/22 [History] Sertraline [Zoloft] 100 mg PO DAILY 10/10/22 [History] Tamsulosin [Flomax] 0.4 mg PO DAILY 10/10/22 [History] lisinopriL [Zestril] 5 mg PO DAILY 10/10/22 [History] traZODone HCL 300 mg PO HS 10/10/22 [History] Fluticasone Nasal [place] [Flonase Nasal [place]] 1 spray EA NOSTRIL DAILY 01/01/24 [History] Melatonin 10 mg PO HS 01/01/24 [History] Mirabegron [Myrbetriq] 50 mg PO DAILY 01/01/24 [History] busPIRone HCL 5 mg PO BID 01/01/24 [History] Dapagliflozin Propanediol [Farxiga] 10 mg PO DAILY 30 Days #30 tablet 01/02/24 [Rx] Insulin Aspart 8 units SQ TID 30 Days #10 ml 01/02/24 [Rx] Insulin Glargine [Lantus Vial] 12 unit SQ DAILY 30 Days #10 ml 01/02/24 [Rx] Syringe and Needle,Insulin,1Ml [Insulin Syringe 30G 09/21" 1ml] 1 syr SQ DIRECTED 30 Days #1 pack 01/02/24 [Rx] Follow up Appointment(s)/Referral(s): Dennis Benjamin MD [Primary Care Provider] - 1-2 days
[2024-01-02 12:04] LABS: Glucose,Whole Blood 262 mg/dL (70-110)
[2024-01-02] MEDS: oxyCODONE-APAP 10-325MG 1 EACH TAB ONE (13:34)
[2024-01-02] MEDS: ACETAMINOPHEN TAB 325 MG TAB ONE (13:34)
[2024-01-03] MEDS ORDERED: INSULIN DETEMIR (LEVEMIR) 100 UNIT/ML SYR SQ SCH (07:00)
== END 2024-01-02 13:38 | disposition home or self-care (01) | DRG 178 ==
LOC: EC 10:11 → UNDOADMIN 13:39 → 4SSUR 13:39 → OBSVTOIN 13:42 → INTOOBSV 13:42 → UNDOADMIN 13:42 → 4SSUR 23:48 → UNDODISIN 01-02 13:40 → UNDODISOB 01-02 13:40
PROVIDERS: ADMIT Student in an Organized Health Care Education/Training Program; ATTEND Student in an Organized Health Care Education/Training Program
DX: U07.1 COVID-19 (principal); E87.20 Acidosis, unspecified; J44.1 Chronic obstructive pulmonary disease with (acute) exacerbation; J96.11 Chronic respiratory failure with hypoxia; E11.65 Type 2 diabetes mellitus with hyperglycemia; E78.5 Hyperlipidemia, unspecified; F32.A Depression, unspecified; G47.30 Sleep apnea, unspecified; M54.9 Dorsalgia, unspecified; G89.29 Other chronic pain; I10 Essential (primary) hypertension; I71.40 Abdominal aortic aneurysm, without rupture, unspecified; J43.9 Emphysema, unspecified; K21.9 Gastro-esophageal reflux disease without esophagitis; K22.70 Barrett's esophagus without dysplasia; N40.0 Benign prostatic hyperplasia without lower urinary tract symptoms; Z99.81 Dependence on supplemental oxygen; Z79.01 Long term (current) use of anticoagulants; Z79.51 Long term (current) use of inhaled steroids; Z79.84 Long term (current) use of oral hypoglycemic drugs; Z79.899 Other long term (current) drug therapy; Z86.718 Personal history of other venous thrombosis and embolism; Z87.891 Personal history of nicotine dependence; Z97.4 Presence of external hearing-aid; Z98.1 Arthrodesis status
CPT/HCPCS: 36415; 71046; 80053; 82009; 83036; 83605; 83735; 84484; 85025; 85379; 85610; 85730; 87636; 93005; 94640; 94760; 96361; 96374; 99285

== ENCOUNTER 2024-01-02 21:42 | Emergency (ER) | payer MEDICARE ==
[2024-01-02 21:59] VITALS: RESP 18; TEMP 97.5
[2024-01-02 21:59] LABS: Glucose,Whole Blood 402 mg/dL (70-110)
--- NOTE | 2024-01-02 22:30 | ED ---
Recheck HPI - General Chief Complaint: Recheck/Abnormal Lab/Rx Stated Complaint: Hyperglycemia Time Seen by Provider: 01/02/24 22:01 Source: patient, RN notes reviewed, old records reviewed Mode of arrival: ambulatory Limitations: no limitations - History of Present Illness Initial Comments: This is a 73-year-old male to the ER for evaluation patient presents today for evaluation of recheck elevated blood sugar, patient is of recent hospital admission and discharge MD Complaint: wound re-check, abnormal lab (Blood sugar) -: days(s) Symptoms Since Prior Visit: no new symptoms Context: planned re-check, called for abnormal lab result Associated Symptoms: none Treatments Prior to Arrival: other (0) - Related Data Home Medications Medication Instructions Recorded Confirmed Apixaban [Eliquis] 5 mg PO BID 10/02/20 01/01/24 Atorvastatin [Lipitor] 80 mg PO HS 10/02/20 01/01/24 oxyCODONE-APAP 10-325MG [Percocet 1 tab PO Q4H PRN 10/02/20 01/01/24 10-325 mg] metFORMIN HCL [Glucophage] 1,000 mg PO BID 02/14/22 01/01/24 Albuterol Inhaler [Ventolin Hfa 2 puff INHALATION RT-Q6H PRN 10/10/22 01/01/24 Inhaler] Budesonide/Formoterol Fumarate 2 puff INHALATION RT-BID PRN 10/10/22 01/01/24 [Symbicort 160-4.5 Mcg Inhaler] Cholecalciferol [Vitamin D3 (25 25 mcg PO DAILY 10/10/22 01/01/24 Mcg = 1000 Iu)] Sertraline [Zoloft] 100 mg PO DAILY 10/10/22 01/01/24 Tamsulosin [Flomax] 0.4 mg PO DAILY 10/10/22 01/01/24 lisinopriL [Zestril] 5 mg PO DAILY 10/10/22 01/01/24 traZODone HCL 300 mg PO HS 10/10/22 01/01/24 Fluticasone Nasal [place] [Flonase 1 spray EA NOSTRIL DAILY 01/01/24 01/01/24 Nasal [place]] Melatonin 10 mg PO HS 01/01/24 01/01/24 Mirabegron [Myrbetriq] 50 mg PO DAILY 01/01/24 01/01/24 busPIRone HCL 5 mg PO BID 01/01/24 01/01/24 Previous Rx's Medication Instructions Recorded Dapagliflozin Propanediol [Farxiga] 10 mg PO DAILY 30 Days #30 tablet 01/02/24 Insulin Aspart 8 units SQ TID 30 Days #10 ml 01/02/24 Insulin Glargine [Lantus Vial] 12 unit SQ DAILY 30 Days #10 ml 01/02/24 Syringe and Needle,Insulin,1Ml 1 syr SQ DIRECTED 30 Days #1 01/02/24 [Insulin Syringe 30G 5/16" 1ml] pack Allergies Allergy/AdvReac Type Severity Reaction Status Date / Time No Known Allergies Allergy Verified 01/02/24 21:55 Review of Systems ROS Statement: Those systems with pertinent positive or pertinent negative responses have been documented in the HPI. ROS Other: All systems not noted in ROS Statement are negative. Past Medical History Past Medical History: Chest Pain / Angina, Diabetes Mellitus, GERD/Reflux, Hyperlipidemia, Hypertension, Osteoarthritis (OA), Prostate Disorder, Sleep Apnea/CPAP/BIPAP Additional Past Medical History / Comment(s): COPD/Emphysema, O2 use 29/11, bilateral hearing aid use, blood clot in splenic vein, hx pancreatitis, constipation, cyst on pancreas, no CPAP use. Adominal aortic aneursym. History of Any Multi-Drug Resistant Organisms: None Reported Past Surgical History: Back Surgery, Tonsillectomy Additional Past Surgical History / Comment(s): Back surgery X5(fusion, laminectomy, cage), Myelogram X4 presurgical, colonoscopy. Past Anesthesia/Blood Transfusion Reactions: No Reported Reaction Past Psychological History: No Psychological Hx Reported Smoking Status: Former smoker Past Alcohol Use History: Occasional Past Drug Use History: None Reported - Past Family History Mother Family Medical History: No Reported History General Exam Limitations: no limitations General appearance: alert, in no apparent distress Head exam: Present: atraumatic, normocephalic, normal inspection Eye exam: Present: normal appearance, PERRL, EOMI. Absent: scleral icterus, conjunctival injection, periorbital swelling ENT exam: Present: normal exam, mucous membranes moist Neck exam: Present: normal inspection. Absent: tenderness, meningismus, lymphadenopathy Respiratory exam: Present: normal lung sounds bilaterally. Absent: respiratory distress, wheezes, rales, rhonchi, stridor Cardiovascular Exam: Present: regular rate, normal rhythm, normal heart sounds. Absent: systolic murmur, diastolic murmur, rubs, gallop, clicks GI/Abdominal exam: Present: soft, normal bowel sounds. Absent: distended, tenderness, guarding, rebound, rigid Extremities exam: Present: normal inspection, full ROM, normal capillary refill. Absent: tenderness, pedal edema, joint swelling, calf tenderness Back exam: Present: normal inspection Neurological exam: Present: alert, oriented X3, CN II-XII intact Psychiatric exam: Present: normal affect, normal mood Skin exam: Present: warm, dry, intact, normal color. Absent: rash Course Vital Signs 01/02/24 01/03/24 01/03/24 21:52 00:00 01:00 Temperature 97.5 F L Pulse Rate 55 L 52 L 71 Respiratory 18 18 18 Rate Blood Pressure 120/63 130/74 146/86 O2 Sat by Pulse 95 Oximetry - Reevaluation(s) Reevaluation #1: 01/02/24 22:45 Medical records reviewed Reevaluation #2: 01/02/24 22:45 Symptoms unchanged Reevaluation #3: 01/03/24 00:50 Patient informed of results and questions answered Reevaluation #4: Was pt. sent in by a medical professional or institution ([facility]IL[facility] Chang, [facility], urgent care, hospital, or [facility]...) When possible be specific @ -no Did you speak to anyone other than the patient for history (EMS, parent, family, police, friend...)? What history was obtained from this source @ -no Did you review nursing and triage notes (agree or disagree)? Why? @ -agree Are old charts reviewed (outside hosp., previous admission, EMS record, old EKG, old radiological studies, urgent care reports/EKG's, [facility] records)? Report findings @ -yes Differential Diagnosis (chest pain, altered mental status, abdominal pain women, abdominal pain men, vaginal bleeding, weakness, fever, dyspnea, syncope, headache, dizziness, GI bleed, back pain, seizure, CVA, palpatations, mental health, musculoskeletal)? @ -prior EKG interpreted by me (3pts min.). @ -yes X-rays interpreted by me (1pt min.). @ -no CT interpreted by me (1pt min.). @ -no U/S interpreted by me (1pt. min.). @ -no What testing was considered but not performed or refused? (CT, X-rays, U/S, labs)? Why? @ -none What meds were considered but not given or refused? Why? @ -none Did you discuss the management of the patient with other professionals (professionals i.e. DrVivian, PA, [facility], lab, RT, psych nurse, social and political studies professor, station manager, teacher, protective officer, disease case manager)? Give summary @ -no Was smoking cessation discussed for >3mins.? @ -no Was critical care preformed (if so, how long)? @ -no Were there social determinants of health that impacted care today? How? (Homelessness, low income, unemployed, alcoholism, drug addiction, transporta tion, low edu. Level, literacy, decrease access to med. care, snf, rehab)? @ -none Was there de-escalation of care discussed even if they declined (Discuss DNR or withdrawal of care, Hospice)? DNR status @ -no What co-morbidities impacted this encounter? (DM, HTN, Smoking, COPD, CAD, Cancer, CVA, ARF, Chemo, Hep., AIDS, mental health diagnosis, sleep apnea, morbid obesity)? @ -none Was patient admitted / discharged? Hospital course, mention meds given and route, prescriptions, significant lab abnormalities, going to OR and other pertinent info. @ - 73 male to ER with hyperglycemia uncontrolled blood sugar here in the emergency department although improved, patient can be discharged home Discharge Undiagnosed new problem with uncertain prognosis? @ -no Drug Therapy requiring intensive monitoring for toxicity (Heparin, Nitro, Insulin, Cardizem)? @ -no Were any procedures done? @ -no Diagnosis/symptom? @ -Hyperglycemia Acute, or Chronic, or Acute on Chronic? @ -Acute Uncomplicated (without systemic symptoms) or Complicated (systemic symptoms)? @ -Complicated Side effects of treatment? @ -no Exacerbation, Progression, or Severe Exacerbation? @ -exacerbation Poses a threat to life or bodily function? How? (Chest pain, [place], [place], pneumonia, PE, COPD, DKA, ARF, appy, cholecystitis, CVA, Diverticulitis, Homicidal, Suicidal, threat to staff... and all critical care pts) @ -yes Reevaluation #5: Differential Weakness: Hypoglycemia, shock, sepsis, hyponatremia, anemia, infection, [place], ETOH, adverse medicine reaction, overdose, stroke, this is not meant to be an all-inclusive list. Medical Decision Making - Medical Decision Making 73 male to ER with hyperglycemia uncontrolled blood sugar here in the emergency department although improved, patient can be discharged home - Lab Data Result diagrams: 01/02/24 22:40 01/02/24 22:40 Lab Results 01/02/24 01/02/24 01/02/24 Range/Units 21:57 22:40 22:40 WBC 10.3 (3.8-10.6) k/uL RBC 3.80 L (4.30-5.90) m/uL Hgb 11.8 L (13.0-17.5) gm/dL Hct 36.0 L (39.0-53.0) % MCV 94.7 (80.0-100.0) fL MCH 31.1 (25.0-35.0) pg MCHC 32.8 (31.0-37.0) g/dL RDW 13.5 (11.5-15.5) % Plt Count 354 (150-450) k/uL MPV 7.3 Neutrophils % 88 % Lymphocytes % 8 % Monocytes % 4 % Eosinophils % 0 % Basophils % 0 % Neutrophils # 9.0 H (1.3-7.7) k/uL Lymphocytes # 0.8 L (1.0-4.8) k/uL Monocytes # 0.4 (0-1.0) k/uL Eosinophils # 0.0 (0-0.7) k/uL Basophils # 0.0 (0-0.2) k/uL Hypochromasia Slight PT 11.1 (10.0-12.5) sec INR 1.0 (<1.2) APTT 21.6 L (22.0-30.0) sec VBG pH (7.31-7.41) VBG pCO2 (37-51) mmHg VBG HCO3 (24-28) mmol/L Sodium (137-145) mmol/L Potassium (3.5-5.1) mmol/L Chloride (98-107) mmol/L Carbon Dioxide (22-30) mmol/L Anion Gap mmol/L BUN (9-20) mg/dL Creatinine (0.66-1.25) mg/dL Est GFR (CKD-EPI)AfAm (>60 ml/min/1.73 sqM) Est GFR (CKD-EPI)NonAf (>60 ml/min/1.73 sqM) Glucose (74-99) mg/dL POC Glucose (mg/dL) 402 H (70-110) mg/dL POC Glu Utility Bill Complaints Investigator ID Pope, [place] Calcium (8.4-10.2) mg/dL Phosphorus (2.5-4.5) mg/dL Magnesium (1.6-2.3) mg/dL Total Bilirubin (0.2-1.3) mg/dL AST (17-59) U/L ALT (4-49) U/L Alkaline Phosphatase (38-126) U/L Troponin I (0.000-0.034) ng/mL NT-Pro-B Natriuret Pep pg/mL Total Protein (6.3-8.2) g/dL Albumin (3.5-5.0) g/dL Urine Color Urine Appearance (Clear) Urine pH (5.0-8.0) Ur Specific [place] (1.001-1.035) Urine Protein (Negative) Urine Glucose (UA) (Negative) Urine Ketones (Negative) Urine Blood (Negative) Urine Nitrite (Negative) Urine Bilirubin (Negative) Urine Urobilinogen (<2.0) mg/dL Ur Leukocyte Esterase (Negative) Acetone, Qual (Negative) 01/02/24 01/02/24 01/02/24 Range/Units 22:40 22:40 22:49 WBC (3.8-10.6) k/uL RBC (4.30-5.90) m/uL Hgb (13.0-17.5) gm/dL Hct (39.0-53.0) % MCV (80.0-100.0) fL MCH (25.0-35.0) pg MCHC (31.0-37.0) g/dL RDW (11.5-15.5) % Plt Count (150-450) k/uL MPV Neutrophils % % Lymphocytes % % Monocytes % % Eosinophils % % Basophils % % Neutrophils # (1.3-7.7) k/uL Lymphocytes # (1.0-4.8) k/uL Monocytes # (0-1.0) k/uL Eosinophils # (0-0.7) k/uL Basophils # (0-0.2) k/uL Hypochromasia PT (10.0-12.5) sec INR (<1.2) APTT (22.0-30.0) sec VBG pH 7.35 (7.31-7.41) VBG pCO2 45 (37-51) mmHg VBG HCO3 25 (24-28) mmol/L Sodium 130 L (137-145) mmol/L Potassium 4.7 (3.5-5.1) mmol/L Chloride 99 (98-107) mmol/L Carbon Dioxide 23 (22-30) mmol/L Anion Gap 8 mmol/L BUN 24 H (9-20) mg/dL Creatinine 0.92 (0.66-1.25) mg/dL Est GFR (CKD-EPI)AfAm >90 (>60 ml/min/1.73 sqM) Est GFR (CKD-EPI)NonAf 83 (>60 ml/min/1.73 sqM) Glucose 371 H (74-99) mg/dL POC Glucose (mg/dL) (70-110) mg/dL POC Glu Utility Bill Complaints Investigator ID Calcium 9.0 (8.4-10.2) mg/dL Phosphorus 3.5 (2.5-4.5) mg/dL Magnesium 1.9 (1.6-2.3) mg/dL Total Bilirubin 0.4 (0.2-1.3) mg/dL AST 18 (17-59) U/L ALT 17 (4-49) U/L Alkaline Phosphatase 123 (38-126) U/L Troponin I <0.012 (0.000-0.034) ng/mL NT-Pro-B Natriuret Pep 481 pg/mL Total Protein 5.9 L (6.3-8.2) g/dL Albumin 3.7 (3.5-5.0) g/dL Urine Color Urine Appearance (Clear) Urine pH (5.0-8.0) Ur Specific [place] (1.001-1.035) Urine Protein (Negative) Urine Glucose (UA) (Negative) Urine Ketones (Negative) Urine Blood (Negative) Urine Nitrite (Negative) Urine Bilirubin (Negative) Urine Urobilinogen (<2.0) mg/dL Ur Leukocyte Esterase (Negative) Acetone, Qual Negative (Negative) 01/02/24 01/03/24 Range/Units 22:50 01:46 WBC (3.8-10.6) k/uL RBC (4.30-5.90) m/uL Hgb (13.0-17.5) gm/dL Hct (39.0-53.0) % MCV (80.0-100.0) fL MCH (25.0-35.0) pg MCHC (31.0-37.0) g/dL RDW (11.5-15.5) % Plt Count (150-450) k/uL MPV Neutrophils % % Lymphocytes % % Monocytes % % Eosinophils % % Basophils % % Neutrophils # (1.3-7.7) k/uL Lymphocytes # (1.0-4.8) k/uL Monocytes # (0-1.0) k/uL Eosinophils # (0-0.7) k/uL Basophils # (0-0.2) k/uL Hypochromasia PT (10.0-12.5) sec INR (<1.2) APTT (22.0-30.0) sec VBG pH (7.31-7.41) VBG pCO2 (37-51) mmHg VBG HCO3 (24-28) mmol/L Sodium (137-145) mmol/L Potassium (3.5-5.1) mmol/L Chloride (98-107) mmol/L Carbon Dioxide (22-30) mmol/L Anion Gap mmol/L BUN (9-20) mg/dL Creatinine (0.66-1.25) mg/dL Est GFR (CKD-EPI)AfAm (>60 ml/min/1.73 sqM) Est GFR (CKD-EPI)NonAf (>60 ml/min/1.73 sqM) Glucose (74-99) mg/dL POC Glucose (mg/dL) 197 H (70-110) mg/dL POC Glu Utility Bill Complaints Investigator ID Ari Kary Calcium (8.4-10.2) mg/dL Phosphorus (2.5-4.5) mg/dL Magnesium (1.6-2.3) mg/dL Total Bilirubin (0.2-1.3) mg/dL AST (17-59) U/L ALT (4-49) U/L Alkaline Phosphatase (38-126) U/L Troponin I (0.000-0.034) ng/mL NT-Pro-B Natriuret Pep pg/mL Total Protein (6.3-8.2) g/dL Albumin (3.5-5.0) g/dL Urine Color Colorless Urine Appearance Clear (Clear) Urine pH 5.5 (5.0-8.0) Ur Specific [place] 1.036 H (1.001-1.035) Urine Protein Negative (Negative) Urine Glucose (UA) 4+ H (Negative) Urine Ketones Negative (Negative) Urine Blood Negative (Negative) Urine Nitrite Negative (Negative) Urine Bilirubin Negative (Negative) Urine Urobilinogen <2.0 (<2.0) mg/dL Ur Leukocyte Esterase Negative (Negative) Acetone, Qual (Negative) - EKG Data -: EKG Interpreted by Me (EKG sinus 55 [place] 154 QRS 82 QTc 406) Disposition Clinical Impression: Hyperglycemia Disposition: HOME SELF-CARE Condition: Fair Instructions (If sedation given, give patient instructions): Diabetic H yperglycemia (ED) Is patient prescribed a controlled substance at d/c from ED?: No Referrals: Dennis Benjamin MD [Primary Care Provider] - 1-2 days Time of Disposition: 00:30
[2024-01-02] MEDS: SODIUM CHLORIDE 0.9% 500 ML 500 ML IV STA (22:40)
[2024-01-02] MEDS: SODIUM CHLORIDE 0.9% 1,000 ML IV STA (22:40)
[2024-01-03 00:29] LABS: VBG PH 7.35 (7.31-7.41)
[2024-01-03 00:33] LABS: Basophils % (A) 0 %; Eosinophils % (A) 0 %; HGB 11.8 gm/dL (13.0-17.5); Hypochromasia Slight; Lymphocytes # (A) 0.8 k/uL (1.0-4.8); Lymphocytes % (A) 8 %; MCH 31.1 pg (25.0-35.0); MCHC 32.8 g/dL (31.0-37.0); MCV 94.7 fL (80.0-100.0); Mean Platelet Volume 7.3; Monocytes # (A) 0.4 k/uL (0-1.0); Monocytes % (A) 4 %; Neutrophils % (A) 88 %; Platelet Count 354 k/uL (150-450); RDW 13.5 % (11.5-15.5); WBC 10.3 k/uL (3.8-10.6)
[2024-01-03 00:39] LABS: Appearance,Urine Clear (Clear); Bilirubin,Urine Negative (Negative); Blood,Urine Negative (Negative); Color,Urine Colorless; Glucose,Urine (UA) 4+ (Negative); Ketones,Urine Negative (Negative); Leukocyte Esterase,Urine Negative (Negative); Nitrite,Urine Negative (Negative); PH, Urine 5.5 (5.0-8.0); Protein,Urine Negative (Negative); Specific Gravity,Urine 1.036 (1.001-1.035); Urobilinogen,Urine <2.0 mg/dL (<2.0)
[2024-01-03 00:45] LABS: ALT 17 U/L (4-49); AST 18 U/L (17-59); African American GFR (CKD) >90 (>60 ml/min/1.73 sqM); Albumin 3.7 g/dL (3.5-5.0); Alkaline Phosphatase 123 U/L (38-126); Anion Gap 8 mmol/L; Blood Urea Nitrogen 24 mg/dL (9-20); Carbon Dioxide 23 mmol/L (22-30); Chloride 99 mmol/L (98-107); Glucose 371 mg/dL (74-99); Magnesium 1.9 mg/dL (1.6-2.3); Non-African American GFR(CKD) 83 (>60 ml/min/1.73 sqM); Phosphorus 3.5 mg/dL (2.5-4.5); Potassium 4.7 mmol/L (3.5-5.1); Sodium 130 mmol/L (137-145); Total Bilirubin 0.4 mg/dL (0.2-1.3); Total Protein 5.9 g/dL (6.3-8.2)
[2024-01-03 00:47] LABS: Partial Thromboplastin Time 21.6 sec (22.0-30.0); Prothrombin Time 11.1 sec (10.0-12.5)
[2024-01-03 00:54] LABS: NT-Pro-B-Type Natriuretic Pept 481 pg/mL
[2024-01-03] MEDS: SODIUM CHLORIDE 0.9% 1,000 ML IV STA (01:19)
[2024-01-03] MEDS: INSULIN REGULAR 100 UNIT/ML VIAL (IV) IV ONE (01:21)
[2024-01-03] MEDS: metFORMIN 500 MG TAB PO STA (01:24)
[2024-01-03 01:26] VITALS: BP 146/86; PULSE 71
[2024-01-03 01:47] LABS: Glucose,Whole Blood 197 mg/dL (70-110)
== END 2024-01-03 01:51 | disposition home or self-care (01) ==
LOC: EC 21:42
DX: R73.9 Hyperglycemia, unspecified (principal); Z87.891 Personal history of nicotine dependence
CPT/HCPCS: 36415; 80053; 81003; 82009; 82803; 83735; 83880; 84100; 84484; 85025; 85610; 85730; 93005; 96360; 96361; 99285

== ENCOUNTER → 2024-03-05 | Outpatient (CLI) | payer MEDICARE ==
[2024-03-05 10:17] VITALS: BP 129/91; PULSE 72; RESP 18; TEMP 96.9
--- NOTE | 2024-03-07 07:53 | P.PAINPG ---
PQRS Measure Charge Sheet Comment: HISTORY OF PRESENT ILLNESS: A 73 yr old male as a referral from Dr Medellin presents today w severe and chronic LBP > 1 yr secondary to post lumbar laminectomy/ fusion/ CAGE for evaluation. Pt states pain level is provoked at 8 /10 in intensity, constant, localized in the lumbar spine, predominantly axial, dull in character w occasional shooting pain towards the LLE. Pain is provoked by sitting/ walking for periods > 20 min. Pain is alleviated by physician guided home exercises/ stretches [ ] times weekly since [ ], medications (Percocet 10/325mg #[address] Medellin), topicals, repositioning and rest . PMH: OA, Angina, NIDDM II, GERD, Hyperlipidemia, HTN, Prostate Disorder, Hx Pancreatitis, SIDDHARTH, AAA PSH: Lumbar Laminectomy/ Fusion/ CAGE x5, Myelogram x4, Colonoscopy, Tonsillectomy SH: Former tobacco user, Occ ETOH use, No illicit drug use FH: Mo- No Reported History All: See list Meds: See list REVIEW OF ORGAN SYSTEMS: CONSTITUTIONAL: No fevers or chills. No recent weight loss. NEUROLOGICAL: + numbness and tingling along the distal extremities. No seizure disorders or headaches. MUSCULOSKELETAL: + pain PSYCHIATRIC: Denies current depression or suicidal thoughts. Physical Examinations : Constitutional : Cooperative , not in acute distress . Neurologic : Cranial nerve II to XII intact. No focal neurological deficits. Psychiatric : alert & oriented x 3. Matching mood & appropriate affect. Judgment & insight intact. Musculoskeletal : Cervical Spine Motor strength in the deltoid and biceps: Normal right side. Normal Left side Motor strength biceps and the wrist extensors: Normal right side . Normal left side Motor strength in the triceps muscle: Normal right side. Normal left side Deep tendon reflexes: Normal at the biceps. Normal at Brachioradialis. Normal at triceps Vertebral body tenderness to deep palpation over Cervical facet loading test: positive bilaterally Spurling test: positive bilaterally Neck distraction test: positive bilaterally Isis sign: positive bilaterally Lumbar spine Motor strength lower extremities ,thigh and legs 5/5 Right side , 5/5 Left side Deep tendon reflexes : Normal Knee Jerk. Normal Ankle Jerk Vertebral body tenderness over Batres Test positive L L2-L3 Lumbar facet Loading Test: positive Right / positive Left Range of motion of the lumbar spine Flexion 30 degrees, extension 10 degrees Straight Leg Raise test: Left/ Right positive at degrees Kindra test: positive right / positive left. Severe tenderness over the Sacroiliac joint on the Right / Left sides Gaenslen test: positive bilaterally Seated flexion test: positive bilaterally. Sacral spine : Severe tenderness over the Sacroiliac joint: right side / left side Range of motion: Flexion of the lumbar spine <60 degrees Range of motion: Extension of the lumbar spine <20 degrees Gaenslen's Test positive Kindra test: positive right side / left side Thigh Thrust Test Sacral Thrust Test Imaging: MRI non contrast lumbar spine from 12/29/22 reviewed Assessment/ Plan : L2-L3 L lateral disc bulge w L L2 nerve root abutement, post lumbar laminectomy/ fusion/ CAGE Recommendation of L TFESI L2-L3 though pt is disinterested. All questions answered. I have spent greater than 30 minutes on patient care today. Dr Baumann was available by phone for the evaluation of this patient. The time was used to review the medical records including relevant urine studies and Prescription history (MAPs), review of the available imaging, evaluation and examination of the patient, coordination of care with the medical staff and if applicable referring physicians, as well as creation of the medical record - Pain Location Left Lower Back Non-Pharmacological Interventions: Inactivity, Position/Reposition Pharmacological Interventions: PRN Medication, Scheduled Medication, Topical Medication Home Medications: Ambulatory Orders Apixaban [Eliquis] 5 mg PO BID 10/02/20 Atorvastatin [Lipitor] 80 mg PO HS 10/02/20 oxyCODONE-APAP 10-325MG [Percocet 10-325 mg] 1 tab PO Q4H PRN 10/02/20 metFORMIN HCL [Glucophage] 1,000 mg PO BID 02/14/22 Albuterol Inhaler [Ventolin Hfa Inhaler] 2 puff INHALATION RT-Q6H PRN 10/10/22 Budesonide/Formoterol Fumarate [Symbicort 160-4.5 Mcg Inhaler] 2 puff INHALATION RT-BID PRN 10/10/22 Cholecalciferol [Vitamin D3 (25 Mcg = 1000 Iu)] 25 mcg PO DAILY 10/10/22 Sertraline [Zoloft] 100 mg PO DAILY 10/10/22 Tamsulosin [Flomax] 0.4 mg PO DAILY 10/10/22 lisinopriL [Zestril] 5 mg PO DAILY 10/10/22 traZODone HCL 300 mg PO HS 10/10/22 Fluticasone Nasal [place] [Flonase Nasal [place]] 1 spray EA NOSTRIL DAILY 01/01/24 Melatonin 10 mg PO HS 01/01/24 Mirabegron [Myrbetriq] 50 mg PO DAILY 01/01/24 busPIRone HCL 5 mg PO BID 01/01/24 Dapagliflozin Propanediol [Farxiga] 10 mg PO DAILY 30 Days #30 tablet 01/02/24 Insulin Aspart 8 units SQ TID 30 Days #10 ml 01/02/24 Insulin Glargine [Lantus Vial] 12 unit SQ DAILY 30 Days #10 ml 01/02/24 Syringe and Needle,Insulin,1Ml [Insulin Syringe 30G 09/21" 1ml] 1 syr SQ DIRECTED 30 Days #1 pack 01/02/24 Controlled Substance Measures - Controlled Substance Measures Is patient prescribed a controlled substance at discharge?: No
== END ==
LOC: PNWHC3 09:53
PROVIDERS: ATTEND Specialist
DX: M47.816 Spondylosis without myelopathy or radiculopathy, lumbar region (principal); M51.369 Other intervertebral disc degeneration, lumbar region without mention of lumbar back pain or lower extremity pain; Z98.890 Other specified postprocedural states; Z98.1 Arthrodesis status; Z87.891 Personal history of nicotine dependence
CPT/HCPCS: 99211

== ENCOUNTER 2024-03-17 12:30 | Emergency (ER) | payer MEDICARE ==
--- NOTE | 2024-03-17 13:15 | ED ---
General Adult HPI - General Source: patient Mode of arrival: ambulatory Limitations: no limitations - History of Present Illness Onset/Timin -: days(s) <Elian Mccabe - Last Filed: 03/17/24 13:13> - General Source: patient, RN notes reviewed Mode of arrival: ambulatory Limitations: no limitations <Sammie Morse - Last Filed: 03/18/24 07:52> - General Stated complaint: low blood sugar Time Seen by Provider: 03/17/24 12:49 - History of Present Illness Initial comments: Quick note: This is a 73-year-old male with history of DM2 presenting with low blood sugar first noted last night. Patient states he attempted to supplement diet with high sugar food and drink intake without significant changes and his blood sugar readings. Patient endorses associated blurred vision but otherwise denies dizziness/lightheadedness, AMS or altered LOC. Patient states he is not taking his insulin since the low blood sugar reading. (Elian Mccabe) 73-year-old male presenting to the ER with a chief complaint of hypoglycemia. Patient is a known type II diabetic and wears a glucometer. Patient states last night he got a notification from his glucometer that he had a low blood sugar of 40. Patient attempted to eat high sugar foods and drinks but still had low readings on his glucometer. Patient states he feels "totally fine". He denies any dizziness, lightheadedness, altered mental status, chest pain, shortness of breath, abdominal pain, nausea, vomiting, diarrhea/constipation, urinary complaints or peripheral edema. He has not taken insulin due to hypoglycemia. Patient has no other complaints. (Sammie Morse) - Related Data Home Medications Medication Instructions Recorded Confirmed Apixaban [Eliquis] 5 mg PO BID 10/02/20 03/05/24 Atorvastatin [Lipitor] 80 mg PO HS 10/02/20 03/05/24 oxyCODONE-APAP 10-325MG [Percocet 1 tab PO Q4H PRN 10/02/20 03/05/24 10-325 mg] metFORMIN HCL [Glucophage] 1,000 mg PO BID 02/14/22 03/05/24 Albuterol Inhaler [Ventolin Hfa 2 puff INHALATION RT-Q6H PRN 10/10/22 03/05/24 Inhaler] Budesonide/Formoterol Fumarate 2 puff INHALATION RT-BID PRN 10/10/22 03/05/24 [Symbicort 160-4.5 Mcg Inhaler] Cholecalciferol [Vitamin D3 (25 25 mcg PO DAILY 10/10/22 03/05/24 Mcg = 1000 Iu)] Sertraline [Zoloft] 100 mg PO DAILY 10/10/22 03/05/24 Tamsulosin [Flomax] 0.4 mg PO DAILY 10/10/22 03/05/24 lisinopriL [Zestril] 5 mg PO DAILY 10/10/22 03/05/24 traZODone HCL 300 mg PO HS 10/10/22 03/05/24 Fluticasone Nasal [place] [Flonase 1 spray EA NOSTRIL DAILY 01/01/24 03/05/24 Nasal [place]] Melatonin 10 mg PO HS 01/01/24 03/05/24 Mirabegron [Myrbetriq] 50 mg PO DAILY 01/01/24 03/05/24 busPIRone HCL 5 mg PO BID 01/01/24 03/05/24 Previous Rx's Medication Instructions Recorded Dapagliflozin Propanediol [Farxiga] 10 mg PO DAILY 30 Days #30 tablet 01/02/24 Insulin Aspart 8 units SQ TID 30 Days #10 ml 01/02/24 Insulin Glargine [Lantus Vial] 12 unit SQ DAILY 30 Days #10 ml 01/02/24 Syringe and Needle,Insulin,1Ml 1 syr SQ DIRECTED 30 Days #1 01/02/24 [Insulin Syringe 30G 5/16" 1ml] pack Allergies Allergy/AdvReac Type Severity Reaction Status Date / Time No Known Allergies Allergy Verified 03/17/24 13:33 Review of Systems ROS Other: All systems not noted in ROS Statement are negative. <Elian Mccabe - Last Filed: 03/17/24 13:13> ROS Other: All systems not noted in ROS Statement are negative. <Sammie Morse - Last Filed: 03/18/24 07:52> ROS Statement: Those systems with pertinent positive or pertinent negative responses have been documented in the HPI. Past Medical History Past Medical History: Chest Pain / Angina, Diabetes Mellitus, GERD/Reflux, Hyperlipidemia, Hypertension, Osteoarthritis (OA), Prostate Disorder, Sleep Apnea/CPAP/BIPAP Additional Past Medical History / Comment(s): COPD/Emphysema, O2 use 29/11, bilateral hearing aid use, blood clot in splenic vein, hx pancreatitis, constipation, cyst on pancreas, no CPAP use. Adominal aortic aneursym. History of Any Multi-Drug Resistant Organisms: None Reported Past Surgical History: Back Surgery, Tonsillectomy Additional Past Surgical History / Comment(s): Back surgery X5(fusion, laminectomy, cage), Myelogram X4 presurgical, colonoscopy. Past Anesthesia/Blood Transfusion Reactions: No Reported Reaction Smoking Status: Former smoker - Past Family History Mother Family Medical History: No Reported History <Elian Mccabe - Last Filed: 03/17/24 13:13> General Exam <Elian Mccabe - Last Filed: 03/17/24 13:13> General appearance: alert, in no apparent distress Respiratory exam: Present: normal lung sounds bilaterally. Absent: respiratory distress, wheezes, rales, rhonchi, stridor Cardiovascular Exam: Present: regular rate, normal rhythm, normal heart sounds. Absent: systolic murmur, diastolic murmur, rubs, gallop, clicks Neurological exam: Present: alert, oriented X3, CN II-XII intact Skin exam: Present: warm, dry, intact, normal color. Absent: rash <Sammie Morse - Last Filed: 03/18/24 07:52> - General Exam Comments Initial Comments: Visual Physical Exam Vital signs reviewed General: Well-appearing, nontoxic, no acute distress. Head: Normocephalic, atraumatic Eyes: PERRLA, EOMI ENT: Airway patent Chest: Nonlabored breathing Skin: No visual rash, normal skin tone Neuro: Alert and oriented 3 Musculoskeletal: No gross abnormalities (Elian Mccabe) Course Vital Signs 03/17/24 13:32 Temperature 98.1 F Pulse Rate 68 Respiratory 20 Rate Blood Pressure 147/91 O2 Sat by Pulse 98 Oximetry Medical Decision Making <Elian Mccabe - Last Filed: 03/17/24 13:13> <Sammie Morse - Last Filed: 03/18/24 07:52> - Medical Decision Making I completed the quick note portion of this chart signed PAULA Mills (Elian Mccabe) Was pt. sent in by a medical professional or institution (ATTILA Chang, SHREDDED FILLER HOPPER FEEDER, urgent care, hospital, or half-way...) When possible be specific @ -No Did you speak to anyone other than the patient for history (EMS, parent, family, police, friend...)? What history was obtained from this source @ -No Did you review nursing and triage notes (agree or disagree)? Why? @ -I reviewed and agree with nursing and triage notes Were old charts reviewed (outside hosp., previous admission, EMS record, old EKG, old radiological studies, urgent care reports/EKG's, half-way records)? Report findings @ -No old charts were reviewed Differential Diagnosis (chest pain, altered mental status, abdominal pain women, abdominal pain men, vaginal bleeding, weakness, fever, dyspnea, syncope, headache, dizziness, GI bleed, back pain, seizure, CVA, palpatations, mental health, musculoskeletal)? @ -Hypoglycemia, hyperglycemia, glucometer issue, DKA, HHS... This is not meant to be all of this of EKG interpreted by me (3pts min.). @ -None done X-rays interpreted by me (1pt min.). @ -None done CT interpreted by me (1pt min.). @ -None done U/S interpreted by me (1pt. min.). @ -None done What testing was considered but not performed or refused? (CT, X-rays, U/S, labs)? Why? @ -None What meds were considered but not given or refused? Why? @ -None Did you discuss the management of the patient with other professionals (professionals i.e. ATTILA Chang, [employer] F[employer]ER HOPPER FEEDER, lab, RT, psych nurse, executive secretary social welfare, street light servicer supervisor, teacher, gunnery/ordnance officer, registered nurse hh case manager)? Give summary @ -No Was smoking cessation discussed for >3mins.? @ -No Was critical care preformed (if so, how long)? @ -No Were there social determinants of health that impacted care today? How? (Homelessness, low income, unemployed, alcoholism, drug addiction, transportation, low edu. Level, literacy, decrease access to med. care, intermediate, rehab)? @ -No Was there de-escalation of care discussed even if they declined (Discuss DNR or withdrawal of care, Hospice)? DNR status @ -No What co-morbidities impacted this encounter? (DM, HTN, Smoking, COPD, CAD, Cancer, CVA, ARF, Chemo, Hep., AIDS, mental health diagnosis, sleep apnea, morbid obesity)? @ -Type 2 diabetes Was patient admitted / discharged? Hospital course, mention meds given and route, prescriptions, significant lab abnormalities, going to OR and other pertinent info. @ -Discharge. 73-year-old male presenting to the ER with a chief complaint of hypoglycemia. History and physical exam completed. Vitals stable. Patient in no signs of acute distress nontoxic-appearing. Exam benign. Accu-Chek in triage 183. Accu-Chek performed simultaneously with glucometer reading. Glucometer reading "low". As patient's blood sugar is 183 it is believed glucometer needs to be changed and recalibrated. I instructed patient to change glucometer when he gets home. Patient stable for discharge at this time as he has no acute complaints. Strict return parameters discussed. Patient discharged in stable condition with follow-up to PCP. Patient verbally expr essed understanding and agreement with care plan. Case discussed with ED attending, Dr. Duron. Undiagnosed new problem with uncertain prognosis? @ -No Drug Therapy requiring intensive monitoring for toxicity (Heparin, Nitro, Insulin, Cardizem)? @ -No Were any procedures done? @ -No Diagnosis/symptom? @ -Glucometer malfunction Acute, or Chronic, or Acute on Chronic? @ -Acute Uncomplicated (without systemic symptoms) or Complicated (systemic symptoms)? @ -Uncomplicated Side effects of treatment? @ -No Exacerbation, Progression, or Severe Exacerbation? @ -No Poses a threat to life or bodily function? How? (Chest pain, [place], [place], pneumonia, PE, COPD, DKA, ARF, appy, cholecystitis, CVA, Diverticulitis, Homicidal, Suicidal, threat to staff... and all critical care pts) @ -No (Sammie Morse) - Lab Data Lab Results 03/17/24 Range/Units 13:34 POC Glucose (mg/dL) 183 H (70-110) mg/dL POC Glu Belt Splicer ID [id number] Vinny Disposition <Elian Mccabe - Last Filed: 03/17/24 13:13> Is patient prescribed a controlled substance at d/c from ED?: No Time of Disposition: 13:54 <Sammie Morse - Last Filed: 03/18/24 07:52> Clinical Impression: Diabetes mellitus Disposition: HOME SELF-CARE Condition: Stable Additional Instructions: Change glucometer when you get home. Follow-up with PCP. Return to the ER for any new or worsening symptoms. Referrals: Dennis Benjamin MD [Primary Care Provider] - 1-2 days
[2024-03-17 13:33] VITALS: BP 147/91; PULSE 68; RESP 20; TEMP 98.1
[2024-03-17 13:36] LABS: Glucose,Whole Blood 183 mg/dL (70-110)
== END 2024-03-17 14:03 | disposition home or self-care (01) ==
LOC: EC 12:30
DX: E11.649 Type 2 diabetes mellitus with hypoglycemia without coma (principal); I10 Essential (primary) hypertension; Z79.4 Long term (current) use of insulin; Z79.84 Long term (current) use of oral hypoglycemic drugs; Z87.891 Personal history of nicotine dependence; Z79.899 Other long term (current) drug therapy; Z90.89 Acquired absence of other organs
CPT/HCPCS: 36415; 99283

== ENCOUNTER 2024-03-22 10:38 | Emergency (ER) | payer MEDICARE ==
[2024-03-22 10:43] VITALS: TEMP 97.9
[2024-03-22] MEDS: HYDROcodone/APAP 5-325MG 1 EACH TAB PO STA (11:01)
[2024-03-22] MEDS: IBUPROFEN 600 MG TAB PO STA (11:02)
--- NOTE | 2024-03-22 11:07 | ED ---
Skin/Abscess/FB HPI - General Chief complaint: Allergic Reaction Stated complaint: Swollen face Time Seen by Provider: 03/22/24 10:47 Source: patient, RN notes reviewed Mode of arrival: ambulatory Limitations: no limitations - History of Present Illness Initial comments: This is a 73-year-old male who presents to the emergency department for left- sided facial swelling. States that when he woke up this morning he noticed swelling underneath the left eye and left upper cheek. This is relatively uncomfortable. Denies any drainage from this. Denies any pain in his teeth. He has not had any injuries or bites and is not using any new soaps or detergents. Not taking any new medication. MD complaint: abscess/boil - Related Data Home Medications Medication Instructions Recorded Confirmed Apixaban [Eliquis] 5 mg PO BID 10/02/20 03/05/24 Atorvastatin [Lipitor] 80 mg PO HS 10/02/20 03/05/24 oxyCODONE-APAP 10-325MG [Percocet 1 tab PO Q4H PRN 10/02/20 03/05/24 10-325 mg] metFORMIN HCL [Glucophage] 1,000 mg PO BID 02/14/22 03/05/24 Albuterol Inhaler [Ventolin Hfa 2 puff INHALATION RT-Q6H PRN 10/10/22 03/05/24 Inhaler] Budesonide/Formoterol Fumarate 2 puff INHALATION RT-BID PRN 10/10/22 03/05/24 [Symbicort 160-4.5 Mcg Inhaler] Cholecalciferol [Vitamin D3 (25 25 mcg PO DAILY 10/10/22 03/05/24 Mcg = 1000 Iu)] Sertraline [Zoloft] 100 mg PO DAILY 10/10/22 03/05/24 Tamsulosin [Flomax] 0.4 mg PO DAILY 10/10/22 03/05/24 lisinopriL [Zestril] 5 mg PO DAILY 10/10/22 03/05/24 traZODone HCL 300 mg PO HS 10/10/22 03/05/24 Fluticasone Nasal [place] [Flonase 1 spray EA NOSTRIL DAILY 01/01/24 03/05/24 Nasal [place]] Melatonin 10 mg PO HS 01/01/24 03/05/24 Mirabegron [Myrbetriq] 50 mg PO DAILY 01/01/24 03/05/24 busPIRone HCL 5 mg PO BID 01/01/24 03/05/24 Previous Rx's Medication Instructions Recorded Dapagliflozin Propanediol [Farxiga] 10 mg PO DAILY 30 Days #30 tablet 01/02/24 Insulin Aspart 8 units SQ TID 30 Days #10 ml 01/02/24 Insulin Glargine [Lantus Vial] 12 unit SQ DAILY 30 Days #10 ml 01/02/24 Syringe and Needle,Insulin,1Ml 1 syr SQ DIRECTED 30 Days #1 01/02/24 [Insulin Syringe 30G /16" 1ml] pack Cephalexin [Keflex] 500 mg PO Q6HR 7 Days #28 cap 03/22/24 Sulfamethox-Tmp 800-160Mg [Bactrim 1 tab PO Q12HR 7 Days #14 tab 03/22/24 DS 800-160 mg] Allergies Allergy/AdvReac Type Severity Reaction Status Date / Time No Known Allergies Allergy Verified 03/17/24 13:33 Review of Systems ROS Statement: Those systems with pertinent positive or pertinent negative responses have been documented in the HPI. ROS Other: All systems not noted in ROS Statement are negative. Past Medical History Past Medical History: Chest Pain / Angina, Diabetes Mellitus, GERD/Reflux, Hyperlipidemia, Hypertension, Osteoarthritis (OA), Prostate Disorder, Sleep Apnea/CPAP/BIPAP Additional Past Medical History / Comment(s): COPD/Emphysema, O2 use 29/11, bilateral hearing aid use, blood clot in splenic vein, hx pancreatitis, constipation, cyst on pancreas, no CPAP use. Adominal aortic aneursym. History of Any Multi-Drug Resistant Organisms: None Reported Past Surgical History: Back Surgery, Tonsillectomy Additional Past Surgical History / Comment(s): Back surgery X5(fusion, laminectomy, cage), Myelogram X4 presurgical, colonoscopy. Past Anesthesia/Blood Transfusion Reactions: No Reported Reaction Past Psychological History: No Psychological Hx Reported Smoking Status: Former smoker Past Alcohol Use History: None Reported Past Drug Use History: None Reported - Past Family History Mother Family Medical History: No Reported History General Exam Limitations: no limitations General appearance: alert, in no apparent distress Head exam: Present: atraumatic, normocephalic, normal inspection Eye exam: Present: PERRL, EOMI, other (Swelling underneath the left eye in the periorbital region). Absent: scleral icterus, conjunctival injection Respiratory exam: Present: normal lung sounds bilaterally. Absent: respiratory distress, wheezes, rales, rhonchi, stridor Cardiovascular Exam: Present: regular rate, normal rhythm, normal heart sounds. Absent: systolic murmur, diastolic murmur, rubs, gallop, clicks Neurological exam: Present: alert, oriented X3, CN II-XII intact Psychiatric exam: Present: normal affect, normal mood Skin exam: Present: other (Palpable abscess inferior to the left eye. No active drainage. No elevation of the tongue or swelling to the floor of the mouth.) Course Vital Signs 03/22/24 03/22/24 10:39 11:22 Temperature 97.9 F Pulse Rate 88 78 Respiratory 18 20 Rate Blood Pressure 152/92 127/85 O2 Sat by Pulse 95 98 Oximetry Medical Decision Making - Medical Decision Making This is a 73 year old male who presents to the emergency department for facial swelling. Was pt. sent in by a medical professional or institution? @ -No Did you speak to anyone other than the patient for history? @ -No Did you review nursing and triage notes? @ -Yes, and I agree, it is accurate with regards to the patient's symptoms. Were old charts reviewed? @ -No Differential Diagnosis? @ -Facial abscess, dental abscess, cellulitis, insect bite, allergic reaction, this is not meant to be an all-inclusive list. EKG interpreted by me (3pts min.)? @ -Not obtained X-rays interpreted by me (1pt min.)? @ -Not obtained CT interpreted by me (1pt min.)? @ -Not obtained U/S interpreted by me (1pt. min.)? @ -Not obtained What testing was considered but not performed? (CT, X-rays, U/S, labs)? Why? @ -None What meds were considered but not given? Why? @ -None Did you discuss the management of the patient with other professionals? @ -No Did you reconcile home meds? @ -No Was smoking cessation discussed for >3mins.? @ -No Was critical care preformed (if so, how long)? @ -No Were there social determinants of health that impacted care today? How? (Homelessness, low income, unemployed, alcoholism, drug addiction, transportation, low edu. Level, literacy, decrease access to med. care, penitentiary, rehab)? @ -No Was there de-escalation of care discussed even if they declined? (Discuss DNR or withdrawal of care, Hospice)? @ -No What co-morbidities impacted this encounter? (DM, HTN, Smoking, COPD, CAD, Cancer, CVA, Hep., AIDS, mental health diagnosis, sleep apnea, morbid obesity)? @ -None Was patient admitted / discharged? @ -Discharged. Physical examination demonstrates a palpable abscess to the left upper cheek. It is unclear if this is a dental abscess versus facial abscess. Patient denies any dental pain. He had no elevation of the tongue or swelling to the floor of the mouth to suggest Odell's angina. Prescription for Bactrim and Keflex provided. Initial doses administered in the emergency department. Advised warm compresses and [id number] analgesics as needed. Strict return parameters discussed and he is advised to have close follow-up with his primary care provider. Patient discharged home in stable condition. Case discussed with ED attending Dr. Recinos. Return precautions reviewed in depth, the patient is instructed to return to the emergency department with any new, worsening, or concerning symptoms. Patient verbalized understanding. Undiagnosed new problem with uncertain prognosis? @ -None Drug Therapy requiring intensive monitoring for toxicity (Heparin, Nitro, Insulin, Cardizem)? @ -None Were any procedures done? @ -None Diagnosis/symptom? @ -Facial abscess Acute, or Chronic, or Acute on Chronic? @ -Acute Uncomplicated (without systemic symptoms) or Complicated (systemic symptoms)? @ -Uncomplicated Side effects of treatment? @ -None Exacerbation, Progression, or Severe Exacerbation] @ -Not applicable Poses a threat to life or bodily function? @ -Unlikely Disposition Clinical Impression: Facial abscess Disposition: HOME SELF-CARE Instructions (If sedation given, give patient instructions): Abscess (ED) Additional Instructions: Return to the emergency department with any new, worsening, or concerning symptoms. Take both antibiotics as prescribed for 7 days. Apply warm compresses. Follow up with your primary care provider in 1-2 days. Prescriptions: Sulfamethox-Tmp 800-160Mg [Bactrim DS 800-160 mg] 1 tab PO Q12HR 7 Days #14 tab Cephalexin [Keflex] 500 mg PO Q6HR 7 Days #28 cap Is patient prescribed a controlled substance at d/c from ED?: No Referrals: Dennis Benjamin MD [Primary Care Provider] - 1-2 days Time of Disposition: 11:07
[2024-03-22] MEDS: CEPHALEXIN 500 MG CAP PO STA (11:17)
[2024-03-22] MEDS: SULFAMETHOX-TMP 800-160MG 1 EACH TAB PO STA (11:17)
[2024-03-22] MEDS: ACET/COD 300 MG/30 MG STARTER PACK 6 TAB BTL PO STA (11:18)
[2024-03-22 11:24] VITALS: BP 127/85; PULSE 78; RESP 20
== END 2024-03-22 11:24 | disposition home or self-care (01) ==
LOC: EC 10:38
DX: L02.01 Cutaneous abscess of face (principal); Z87.891 Personal history of nicotine dependence
CPT/HCPCS: 99283

== ENCOUNTER → 2024-06-07 | Outpatient (CLI) | payer MEDICARE ==
[2024-06-07 15:35] LABS: African American GFR (CKD) 70 (>60 ml/min/1.73 sqM); Blood Urea Nitrogen 28 mg/dL (9-20); Non-African American GFR(CKD) 60 (>60 ml/min/1.73 sqM)
--- NOTE | 2024-06-07 16:50 | CT ---
CTA abdomen and pelvis. HISTORY: Abdominal aortic aneurysm. COMPARISON: 08/12/2022. TECHNIQUE: Multiple axial images are obtained through the abdomen and pelvis before and after IV cont rast. The exam was performed according to department CTA protocol. 3-D postprocessing was performed. FINDINGS: There are mild interstitial changes and moderate emphysematous changes in the lung bases. There are tiny gallstones. There is a drainage catheter from the stomach to the tail the pancreas for previous pseudocyst draina ge. There is no residual pancreatic cyst. There is no focal mass or organomegaly involving the solid visceral organs of the upper abdomen. There is no renal mass or hydronephrosis. There is an infrarenal abdominal aortic aneurysm which has increased in the interval from 3.97 x 3.76 to 4.72 x 3.89 cm. There is moderate mural thrombus. No retroperitoneal adenopathy. The bowel loops are normal in caliber and is no dilatation or obstruction. There is no free intraperi toneal air or fluid. There is diverticulosis of the sigmoid colon without CT evidence of diverticulit is. No pelvic mass or adenopathy. There is mild prostatic hypertrophy. There are no focal osseous abnorma lities. There is a stable moderate compression fracture of L1. There is post surgical changes of fusi on of L4 and L5.. IMPRESSION: 1. Mild interval growth in the infrarenal abdominal aortic aneurysm as described above. 2. Stable moderate compression fracture of L1. 3. Stable mild prostatic hypertrophy. 4. Mild emphysematous changes in the lung bases. 5. Tiny gallstones. 6. Resolution of the pancreatic pseudocyst. No change in the drainage catheter from the stomach to th e previous pseudocyst in the tail the pancreas. [facility], , 06/07/2024 4:48 PM
== END | disposition home or self-care (01) ==
LOC: RADCTMAIN 14:40
PROVIDERS: ATTEND Internal Medicine
DX: I71.43 Infrarenal abdominal aortic aneurysm, without rupture (principal); M48.56XA Collapsed vertebra, not elsewhere classified, lumbar region, initial encounter for fracture; N40.0 Benign prostatic hyperplasia without lower urinary tract symptoms; E11.9 Type 2 diabetes mellitus without complications
CPT/HCPCS: 82565; 84520; 36415; 74174; Q9967

== ENCOUNTER → 2024-08-01 | Outpatient (CLI) | payer MEDICARE ==
--- NOTE | 2024-08-01 14:25 | CT ---
EXAMINATION TYPE: CT lumbar spine wo con DATE OF EXAM: 08/01/2024 2:12 PM COMPARISON: 04/22/2022 CLINICAL INDICATION: Male, 74 years old with history of M54.50 low back pain; PHH, Chronic lower back pain TECHNIQUE: Unenhanced CT of the lumbar spine was performed. Bone and soft tissue window settings are submitted as well as coronal and sagittal reconstructions. CT DLP: [address] CTDI: mGy Automated exposure control for dose reduction was used. FINDINGS: There is been interval vertebral plasty of a severe compression fracture of L1. There is no significa nt retropulsion. The L2, L3, L4 and L5 vertebral segments are normal. There is no acute fracture. Post surgical changes of interbody and posterior metallic fusion of L4 and L5 and there is a laminect fletcher defect at the L4-5 level on the left. The lumbar vertebral segments are normal in alignment and there is no subluxation. There is metallic fusion of the left SI joint. There is no lumbar disc herniation or spinal stenosis. There is no significant bony neural foraminal stenosis. There is a 5.0 x 4.2 cm aneurysm of the distal abdominal aorta. When measured in similar fashion the aneurysm previously measured approximately 3.9 x 4.9 cm and therefore is despite mild interval growth . IMPRESSION: 1. Severe compression fracture of L1 with vertebroplasty and no significant retropulsion. 2. No acute lumbar spine fracture or malalignment. 3. L4 and L5 fusion with laminectomy as described above. 4. No lumbar disc herniation or spinal stenosis. 5. Mild interval growth in the infrarenal abdominal aortic aneurysm. [facility], , 08/01/2024 2:22 PM
== END | disposition home or self-care (01) ==
LOC: RADCTMAIN 13:12
PROVIDERS: ATTEND Orthopaedic Surgery
DX: M48.56XA Collapsed vertebra, not elsewhere classified, lumbar region, initial encounter for fracture (principal); I71.43 Infrarenal abdominal aortic aneurysm, without rupture; Z47.89 Encounter for other orthopedic aftercare; Z98.1 Arthrodesis status
CPT/HCPCS: 72131

== ENCOUNTER → 2024-08-23 | Outpatient (CLI) | payer MEDICARE ==
[2024-08-23 15:34] LABS: Basophils # (A) 0.03 X 10*3/uL (0.00-0.10); Basophils % (A) 0.4 %; Eosinophils # (A) 0.19 X 10*3/uL (0.04-0.35); Eosinophils % (A) 2.5 %; HCT 46.2 % (39.6-50.0); HGB 14.6 g/dL (13.0-17.0); Lymphocytes # (A) 1.36 X 10*3/uL (0.90-5.00); Lymphocytes % (A) 17.9 %; MCH 29.6 pg (27.0-32.0); MCHC 31.6 g/dL (32.0-37.0); MCV 93.7 FL (80.0-97.0); Mean Platelet Volume 8.8 FL (9.5-12.2); Monocytes # (A) 0.61 X 10*3/uL (0.20-1.00); NRBC Per 100 WBC 0 X 10*3/uL (0.00-0.01); Neutrophils # (A) 5.37 X 10*3/uL (1.80-7.70); Neutrophils % (A) 70.8 %; Platelet Count 422 X 10*3/uL (140-440); RBC 4.93 X 10*6/uL (4.40-5.60); RDW 12.9 % (11.5-14.5); WBC 7.59 X 10*3/uL (4.50-10.00)
[2024-08-23 16:22] LABS: Erythrocyte Sedimentation Rate 3 mm/Hr (0-20)
== END | disposition home or self-care (01) ==
LOC: LABWHC1 11:23
PROVIDERS: ATTEND Ophthalmology
DX: H34.8320 Tributary (branch) retinal vein occlusion, left eye, with macular edema (principal)
CPT/HCPCS: 36415; 85025; 85652

== ENCOUNTER → 2024-09-06 | Outpatient (CLI) | payer MEDICARE ==
[2024-09-06 10:53] VITALS: BP 145/96; PULSE 90; RESP 16; TEMP 98.9
--- NOTE | 2024-09-06 15:24 | P.PAINPG ---
Objective - Vital Signs Vital signs: Intake & Output 09/05/24 09/06/24 09/06/24 18:59 06:59 18:59 Weight 94.347 kg PQRS Measure Charge Sheet Comment: HISTORY OF PRESENT ILLNESS: A 74 yr old male on portable oxygen as a referral from Dr Contreras presents today w severe and chronic LBP > 1 yr secondary to L1 vertebroplasty, L2-L3 L lateral disc bulge w L L2 nerve root abutement, L4-L5 laminectomy/fusion/ CAGE for evaluation. Pt states pain level is provoked at 7 /10 in intensity, constant, localized in the L lumbar spine, predominantly axial, dull in character without shooting pain. Pain is provoked by sitting/ walking for periods > 20 min. Pain is alleviated by physician guided home stretches daily since Summer 2023, medications, topicals, repositioning and rest . Interventionla procedures include L1 vertebroplasty, L2-L3 L lateral disc bulge w L L2 nerve root abutement, L4-L5 laminectomy/fusion/ CAGE Medications include Percocet 10/325mg #[address] Medellin REVIEW OF ORGAN SYSTEMS: CONSTITUTIONAL: No fevers or chills. No recent weight loss. NEUROLOGICAL: + numbness and tingling along the distal extremities. No seizure disorders or headaches. MUSCULOSKELETAL: + pain PSYCHIATRIC: Denies current depression or suicidal thoughts. Physical Examinations : Constitutional : Cooperative , not in acute distress . Neurologic : Cranial nerve II to XII intact. No focal ne urological deficits. Psychiatric : alert & oriented x 3. Matching mood & appropriate affect. Judgment & insight intact. Musculoskeletal : Cervical Spine Motor strength in the deltoid and biceps: Normal right side. Normal Left side Motor strength biceps and the wrist extensors: Normal right side . Normal left side Motor strength in the triceps muscle: Normal right side. Normal left side Deep tendon reflexes: Normal at the biceps. Normal at Brachioradialis. Normal at triceps Vertebral body tenderness to deep pa lpation over Cervical facet loading test: positive bilaterally Spurling test: positive bilaterally Neck distraction test: positive bilaterally Isis sign: positive bilaterally Lumbar spine Motor strength lower extremities ,thigh and legs 5/5 Right side , 5/5 Left side Deep tendon reflexes : Normal Knee Jerk. Normal Ankle Jerk Vertebral body tenderness over Batres Test positive L L2-L3 Lumbar facet Loading Test: positive Right / positive Left L5-S1 Range of motion of the lumbar spine Flexion 30 degrees, extension 10 degrees Straight Leg Raise test: Left/ Right positive at degrees Kindra test: positive right / positive left. Severe tenderness over the Sacroiliac joint on the Right / Left sides Gaenslen test: positive bilaterally Seated flexion test: positive bilaterally. Sacral spine : Severe tenderness over the Sacroiliac joint: right side / left side Range of motion: Flexion of the lumbar spine <60 degrees Range of motion: Extension of the lumbar spine <20 degrees Gaenslen's Test positive Kindra test: positive right side / left side Thigh Thrust Test Sacral Thrust Test Imaging: MRI non contrast lumbar spine from 12/29/[address] non contrast lumbar spine from 08/01/2024 reviewed Assessment/ Plan : L1 vertebroplasty, L2-L3 L lateral disc bulge w L L2 nerve root abutement, L4-L5 laminectomy/fusion/ CAGE Recommendation of L MBB L5-S1 #1. Risk, benefits of procedure discussed and patient verbalized understanding. Protocol for discontinuation/continuation of medication surrounding procedure discussed. Minimal anesthesia including Fentanyl and Versed if clinically indicated. All questions answered. I have spent greater than 30 minutes on patient care today. Dr Baumann was available by phone for the evaluation of this patient. The time was used to review the medical records including relevant urine studies and Prescription history (MAPs), review of the available imaging, evaluation and examination of the patient, coordination of care with the medical staff and if applicable referring physicians, as well as creation of the medical record PQRS Narrative: Hx Alcohol Use (MH) No Home Medications: Ambulatory Orders Apixaban [Eliquis] 5 mg PO BID 10/02/20 Atorvastatin [Lipitor] 80 mg PO HS 10/02/20 oxyCODONE-APAP 10-325MG [Percocet 10-325 mg] 1 tab PO Q4H PRN 10/02/20 metFORMIN HCL [Glucophage] 1,000 mg PO BID 02/14/22 Albuterol Inhaler [Ventolin Hfa Inhaler] 2 puff INHALATION RT-Q6H PRN 10/10/22 Budesonide/Formoterol Fumarate [Symbicort 160-4.5 Mcg Inhaler] 2 puff INHALATION RT-BID PRN 10/10/22 Cholecalciferol [Vitamin D3 (25 Mcg = 1000 Iu)] 25 mcg PO DAILY 10/10/22 Sertraline [Zoloft] 100 mg PO DAILY 10/10/22 Tamsulosin [Flomax] 0.4 mg PO DAILY 10/10/22 lisinopriL [Zestril] 5 mg PO DAILY 10/10/22 traZODone HCL 300 mg PO HS 10/10/22 Fluticasone Nasal [place] [Flonase Nasal [place]] 1 spray EA NOSTRIL DAILY 01/01/24 Melatonin 10 mg PO HS 01/01/24 Mirabegron [Myrbetriq] 50 mg PO DAILY 01/01/24 busPIRone HCL 5 mg PO BID 01/01/24 Dapagliflozin Propanediol [Farxiga] 10 mg PO DAILY 30 Days #30 tablet 01/02/24 Insulin Aspart 8 units SQ TID 30 Days #10 ml 01/02/24 Insulin Glargine (Lantus) [Lantus Vial] 12 unit SQ DAILY 30 Days #10 ml 01/02/24 Syringe and Needle,Insulin,1Ml [Insulin Syringe 30G 16" 1ml] 1 syr SQ DIRECTED 30 Days #1 pack 01/02/24 Cephalexin [Keflex] 500 mg PO Q6HR 7 Days #28 cap 03/22/24 Sulfamethox-Tmp 800-160Mg [Bactrim DS 800-160 mg] 1 tab PO Q12HR 7 Days #14 tab 03/22/24 Controlled Substance Measures - Controlled Substance Measures Is patient prescribed a controlled substance at discharge?: No
== END ==
LOC: PNWHC3 10:40
PROVIDERS: ATTEND Specialist
DX: M51.369 Other intervertebral disc degeneration, lumbar region without mention of lumbar back pain or lower extremity pain (principal); M43.26 Fusion of spine, lumbar region; Z98.890 Other specified postprocedural states; Z95.1 Presence of aortocoronary bypass graft
CPT/HCPCS: 99212

== ENCOUNTER → 2024-09-07 | Outpatient (CLI) | payer MEDICARE ==
--- NOTE | 2024-09-07 14:15 | CT ---
EXAMINATION TYPE: CT sinus wo con CT DLP: 636.9 mGycm, Automated exposure control for dose reduction was used. DATE OF EXAM: 09/07/2024 2:01 PM COMPARISON: CT sinus 07/13/2022. CLINICAL INDICATION:Male, 74 years old with history of J32.9 CHRONIC SINUSITIS, UNSPECIFIED; PHH, Chr onic sinusitis CONTRAST: None. TECHNIQUE: Multiple thin axial images were obtained through the paranasal sinuses without the use of IV contrast. Additional coronal and sagittal reformatted images were submitted for evaluation. FINDINGS: Frontal sinuses: Normally developed and aerated. Frontal Recess: Clear Maxillary Sinuses: Normally developed. Minimal mucosal thickening of the left maxillary sinus. The ri ght maxillary sinus is clear. A right maxillary molar with dental caries extends into the right maxil kingsley sinus. Maxillary Infundibula([facility]): Clear, Rogers cells identified with mild narrowing of the infundibula gerry aterally. Ethmoid sinuses: Normally developed and aerated. Ethmoidal notch: Protected and abutting the lateral lamina. Sphenoid sinuses: Normally developed and aerated. There is sellar sphenoid sinus pneumatization witho ut evidence of dehiscence. No dehiscence of carotid canal. No evidence of optic nerve dehiscence wit hin the sphenoid sinus. No evidence of Onodi cells. Sphenoethmoidal recesses: Clear. Nasal septum: Moderately deviated to the right. Nasal Turbinates: Within normal limits. Mastoid air cells & middle ears: The right mastoid air cells are clear. Trace inferior left mastoid e ffusion. The middle ears are grossly unremarkable. Modified Soft tissues & Brain: Partially seen without gross abnormality. Globes are intact. Other: Cribriform plate demonstrates symmetric Keros classification type 3 cribriform plate. No evidence of bony dehiscence of skull base. Lamina papyracea is intact without evidence of remote orbital fracture or orbital prolapse into the e thmoid sinus. IMPRESSION: 1. Minimal left maxillary sinus mucosal disease. Bilateral Rogers cells with mild mucosal thickening of the bilateral infundibulum. The bilateral ostiomeatal complexes are patent. 2. Trace inferior left mastoid effusion. 3. Moderate nasal septal deviation to the right redemonstrated. [facility], , 09/07/2024 2:13 PM
== END | disposition home or self-care (01) ==
LOC: RADCTMAIN 13:41
PROVIDERS: ATTEND Otolaryngology Otolaryngology/Facial Plastic Surgery
DX: J32.9 Chronic sinusitis, unspecified (principal); J34.89 Other specified disorders of nose and nasal sinuses; J34.2 Deviated nasal septum; H74.8X2 Other specified disorders of left middle ear and mastoid
CPT/HCPCS: 70486

== ENCOUNTER 2024-10-12 12:28 | Day surgery (SDC) | payer MEDICARE ==
[2024-10-12 13:51] VITALS: RESP 16; TEMP 97
[2024-10-12 14:09] LABS: Glucose,Whole Blood 127 mg/dL (70-110)
[2024-10-12 14:10] VITALS: PULSE 68
[2024-10-12 14:18] VITALS: BP 170/113
== END 2024-10-12 14:31 | disposition home or self-care (01) ==
LOC: ORPAIN 12:28
PROVIDERS: ATTEND Anesthesiology
DX: Z53.8 Procedure and treatment not carried out for other reasons (principal); M46.1 Sacroiliitis, not elsewhere classified

== ENCOUNTER 2024-10-16 08:26 | Day surgery (SDC) | payer MEDICARE ==
[2024-10-16 08:56] VITALS: RESP 16; TEMP 97.7
[2024-10-16 09:07] LABS: Glucose,Whole Blood 145 mg/dL (70-110)
[2024-10-16] MEDS ORDERED: IOPAMIDOL M300 15ML VIAL ONE (10:29)
[2024-10-16] MEDS ORDERED: methylPREDNISolone ACETATE 40 MG/ML 1 ML VIAL ONE (10:29)
--- NOTE | 2024-10-16 10:57 | P.PCN ---
Description of Procedure: Preprocedure diagnosis. Sacroiliac joint arthropathy. Postprocedure diagnosis. As above. Procedure done. Injection of the radio contrast material into left sacroiliac joint, sacroiliac joint arthrogram, interpretation of arthrogram. left sacroiliac joint injection with local anesthetics and steroid under fluoroscopic guidance. Anesthesia. Local anesthetic infiltration. Continuous EKG, pulse ox, blood pressure, and verbal communication was maintained with the patient in OR. Blood loss. Minimal. Indication. Sacroiliac joint arthropathy. Discussed the procedure, alternatives, complications which may include infection,bleeding, nerve damage, aggravation of pain which could be permanent. Patient understands and questions were answered. Procedure note. After getting consent patient in OR in prone position. Back prepped with chlorhexidine and draped in sterile manner. After injecting 10 mL of 1% lidocaine subcutaneously, a 22-gauge spinal needle was introduced under tunnel vision of the fluoroscope in the lower and posterior one third of left sacroiliac joint. After needle position confirmation by AP and crosstable lateral view, 1 mL of Isovue 200 contrast was injected. Contrast was noted to be into the sacroiliac joint. After repeat negative aspiration, 2.5 mL solution was injected which consists of 1.5 ml of 0.5% Ropivacaine mixed with 1 mL of 40 mg Depo-Medrol. After the procedure needles were taken out. Bandage applied. Disposition. Patient tolerated the procedure well. No complication. Patient was discharged home in stable condition.
[2024-10-16 11:10] VITALS: BP 147/91; PULSE 62
--- NOTE | 2024-10-16 11:48 | FL ---
Fluoroscopy INDICATION: Pain FINDINGS: Fluoroscopy time: 36.6 seconds. Total dose area product (DAP) in uGy*m?, mGy*cm? (or similar): 0.51246 Images obtained: 3. Images document the procedure. IMPRESSION: 1. Documentation of fluoroscopy. [facility], , 10/16/2024 11:46 AM
== END 2024-10-16 11:27 | disposition home or self-care (01) ==
LOC: ORPAIN 08:26
PROVIDERS: ATTEND Pain Medicine Interventional Pain Medicine
DX: M46.1 Sacroiliitis, not elsewhere classified (principal)
CPT/HCPCS: Q9967; J1010; G0260; 27096

== ENCOUNTER → 2024-11-12 | Outpatient (CLI) | payer MEDICARE ==
[2024-11-12 16:14] LABS: INR 1.0 (<1.2); Partial Thromboplastin Time 23.9 sec (22.0-30.0); Prothrombin Time 11.5 sec (10.0-12.5)
[2024-11-12 20:01] LABS: ALT 17 U/L (10-49); AST 16 U/L (14-35); Albumin 4.5 g/dL (3.8-4.9); Albumin/Globulin Ratio 2.14 Ratio (1.60-3.17); Alkaline Phosphatase 88 U/L (41-126); Anion Gap 12.70 mmol/L (4.00-12.00); BUN/Creat Ratio 13.27 Ratio (12.00-20.00); Blood Urea Nitrogen 14.6 mg/dL (9.0-27.0); Calcium 9.7 mg/dL (8.7-10.3); Carbon Dioxide 25.3 mmol/L (21.6-31.8); Chloride 104 mmol/L (96-109); Globulin 2.1 g/dL (1.6-3.3); Glucose 170 mg/dL (70-110); Potassium 3.9 mmol/L (3.5-5.5); Sodium 142 mmol/L (135-145); Total Protein 6.6 g/dL (6.2-8.2)
[2024-11-12 20:04] LABS: Basophils # (A) 0.04 X 10*3/uL (0.00-0.10); Basophils % (A) 0.5 %; Eosinophils # (A) 0.16 X 10*3/uL (0.04-0.35); Eosinophils % (A) 2.1 %; HCT 43.0 % (39.6-50.0); HGB 13.7 g/dL (13.0-17.0); Immature Grans, Automated 0.40 %; Lymphocytes # (A) 1.50 X 10*3/uL (0.90-5.00); Lymphocytes % (A) 19.7 %; MCH 30.2 pg (27.0-32.0); MCHC 31.9 g/dL (32.0-37.0); MCV 94.7 FL (80.0-97.0); Monocytes # (A) 0.62 X 10*3/uL (0.20-1.00); Monocytes % (A) 8.2 %; NRBC Per 100 WBC 0 X 10*3/uL (0.00-0.01); Neutrophils # (A) 5.25 X 10*3/uL (1.80-7.70); Neutrophils % (A) 69.1 %; Platelet Count 396 X 10*3/uL (140-440); RBC 4.54 X 10*6/uL (4.40-5.60); RDW 13.6 % (11.5-14.5); WBC 7.60 X 10*3/uL (4.50-10.00)
== END | disposition home or self-care (01) ==
LOC: LABPAT 15:03
PROVIDERS: ATTEND Orthopaedic Surgery
DX: Z01.812 Encounter for preprocedural laboratory examination (principal); Z22.322 Carrier or suspected carrier of Methicillin resistant Staphylococcus aureus
CPT/HCPCS: 80053; 82306; 85025; 85610; 85730; 86850; 86900; 86901; 87070; 93005

== ENCOUNTER 2024-11-19 09:57 | Day surgery (SDC) | payer MEDICARE ==
[2024-11-16 13:13] VITALS: BMI 29.5
--- NOTE | 2024-11-19 06:36 | P.HPOR ---
History of Present Illness H&P Date: 11/02/24 .D:Date: 11/02/24 : 08:22am .T:Title: FOLLOW UP SIJ / S/P INJECTION Clinical Summary Jordi Adhikari presented today with ongoing left-sided lower back pain, primarily originating from the L5-S1 region and the SI joint, despite previous interventions including injections that provided only temporary relief. The pain is described as diffuse and radiating to the buttock region. A medial branch transection procedure was discussed as a potential next step to alleviate pain, with the expectation of significant relief. Jordi is considering this minimally invasive procedure, which involves cutting the nerve causing the pain, similar to a knee scope but on the back. The procedure is expected to provide 70-80% pain relief. Jordi is ambulatory and has had multiple surgeries in the past year, indicating a high tolerance for surgical interventions. SURGICAL PLAN: L5-S1 MEDIAL BRANCH TRANSECTION Chief Complaint Left-sided lower back pain History Jordi Adhikari presents today for follow up regarding his ongoing left-sided lower back pain. Patient denies any fever, chills, shortness of breath, chest pain, perineal numbness and tingling, bowel or bladder incontinence/retention. The patients' past social, medical, family, surgical history, as well as review of systems, have been reviewed. Please refer to the Neurosurgery History and Physical form that has been scanned into our electronic medical record system. 16 points review of systems completed and as stated in HPI, all other systems reviewed are negative. Physical Exam - On examination today, the patient is alert and oriented times three, in no acute distress, appearing well nourished and well hydrated with overall alignment well maintained. - Functionally, the patient demonstrates independent [id number] transition in less than 5 seconds and ambulates without assistive devices. - Surgical Incision: Incisions are well healed posteriorly. - TTP: Tenderness to palpation on the left lower aspect of the SI joint over PSIS, with pain radiating to the buttock region. - Musculoskeletal examination reveals full range of motion in all major joints without restriction or pain. - 5/5 strength in all major muscle groups of bilateral upper extremities. - 5/5 strength in all major muscle groups of the bilateral lower extremities. - Neurologically, sensation is intact to light touch throughout C3-T1 and L2-S1 dermatomes, with 2/4 reflexes in bilateral upper and lower extremities. - Noguera's, clonus, Babinski, and Castillo's signs are all negative, with no tensioning signs present. - Cranial nerves II-XII are grossly intact. - Vascular examination demonstrates 2/4 distal pulses in all four extremities without edema, and compartments are soft and compressible. - The abdomen is soft and non-tender to palpation, with normal, non-labored respirations noted. Imaging No new imaging today Assessment 1. L5-S1 spondylosis with radiculopathy ICD: M47.27 2. Lumbar radiculopathy ICD: M54.16 3. Lower extremity radiculopathy ICD: M54.30 4. Low back pain ICD: M54.5 Plan - Proceed with scheduling a medial branch transection procedure for pain relief at L5-S1. - Discuss potential risks and benefits of the procedure with Jordi Adhikari. - Ensure pre-surgical clearance regarding anesthesia tolerance. - Monitor pain levels and functional status post-procedure. Medical Necessity Note: Jordi Adhikari demonstrates clear medical necessity for the medial branch transection procedure based on persistent, functionally limiting left-sided lower back pain originating from the L5-S1 region and SI joint that has been refractory to conservative management. Clinical examination confirms tenderness over the PSIS with radiation to the buttock region, correlating with his subjective complaints. Previous interventional approaches, including injections, have provided only temporary and insufficient relief, indicating progression to more definitive treatment is appropriate. The patient's radiographic findings, clinical presentation, and failed response to less invasive therapies establish that this procedure represents the most appropriate next step in his care plan. Without this intervention, the patient faces continued pain, potential functional decline, and decreased quality of life, making the medial branch transection both reasonable and necessary for treating his documented pathology. Surgical Rationale Note: The decision to proceed with medial branch transection for Jordi Adhikari is supported by strong surgical rationale includin) Anatomically localized pain to the L5-S1 region with clinical correlation on physical examination, 2) Documented failure of conservative management including temporary relief with injections, suggesting neural mediation of pain that would respond to denervation, 3) The minimally invasive nature of the procedure offers a favorable risk-benefit profile given the patient's clinical presentation and surgical history, 4) Expected outcomes of 7080% pain reduction based on clinical studies for appropriately selected patients with similar presentations, and 5) The patient's demonstrated tolerance for surgical intervention and ambulatory status suggesting high likelihood of functional improvement following the procedure. The targeted approach of medial branch transection addresses the specific pain generator while minimizing collateral tissue disruption, making it the most appropriate and efficient surgical option for treating Jordi's persistent back pain at this stage of his care. Risks and Benefits Statement: The proposed medial branch transection offers potential benefits including significant pain relief and improved functional mobility. However, associated risks include anesthesia-related complications, bleeding, and potential for inadequate pain relief. Jordi's specific medical history will be thoroughly evaluated to ensure the safest possible surgical experience with optimal outcomes. Follow Up 2 weeks, PRN Plan at Next Visit Review post-procedure outcomes and pain relief Patient Education Medications Reviewed: YES In our visit today Jordi Adhikari and I have had a chance to go over my understanding of the patient's current condition, the natural course history without intervention and various interventional options. Questions were invited and answered, and the patient wishes to proceed as outlined above. I will be sure to keep you updated after Jordi Adhikari returns here for further follow-up. Thank you again for your referral. Please do not hesitate to contact me if you have any further questions. Signed and authenticated by: Marco Contreras DO [facility] [place] [address] This message is confidential, intended only for the named recipient(s) and may contain information that is privileged or exempt from disclosure under applicable law. If you are not the intended recipient(s), you are notified that the dissemination, distribution or copying of this information is strictly prohibited. If you received this message in error, please notify the sender then delete this message. # SIGNED BY Marco Contreras (GOO)11/02/2024 08:36AM Past Medical History Past Medical History: Chest Pain / Angina, Diabetes Mellitus, GERD/Reflux, Hyperlipidemia, Hypertension, Osteoarthritis (OA), Prostate Disorder, Sleep Apnea/CPAP/BIPAP Additional Past Medical History / Comment(s): COPD/Emphysema, O2 use 24/7 2L , bilateral hearing aid use, blood clot in splenic vein, hx pancreatitis, constipation, cyst on pancreas, no CPAP use. Adominal aortic aneursym. History of Any Multi-Drug Resistant Organisms: None Reported Past Surgical History: Back Surgery, Tonsillectomy Additional Past Surgical History / Comment(s): Back surgery X5(fusion, laminectomy, cage), Myelogram X4 presurgical, colonoscopy. Pain procedures Past Anesthesia/Blood Transfusion Reactions: No Reported Reaction Additional Past Anesthesia/Blood Transfusion Reaction / Comment(s): No hx of blood transfusion Smoking Status: Former smoker - Past Family History Mother Family Medical History: No Reported History Medications and Allergies Home Medications Medication Instructions Recorded Confirmed Type Apixaban [Eliquis] 5 mg PO BID 10/02/20 11/16/24 History Atorvastatin [Lipitor] 80 mg PO HS 10/02/20 11/16/24 History oxyCODONE-APAP 10-325MG [Percocet 1 tab PO Q4H PRN 10/02/20 11/16/24 History 10-325 mg] metFORMIN HCL [Glucophage] 1,000 mg PO BID 02/14/22 11/16/24 History Albuterol Inhaler [Ventolin Hfa 2 puff INHALATION RT-Q6H PRN 10/10/22 11/16/24 History Inhaler] Budesonide/Formoterol Fumarate 2 puff INHALATION RT-BID PRN 10/10/22 11/16/24 History [Symbicort 160-4.5 Mcg Inhaler] Cholecalciferol [Vitamin D3 (25 25 mcg PO DAILY 10/10/22 11/16/24 History Mcg = 1000 Iu)] Sertraline [Zoloft] 100 mg PO DAILY 10/10/22 11/16/24 History Tamsulosin [Flomax] 0.4 mg PO DAILY 10/10/22 11/16/24 History lisinopriL [Zestril] 5 mg PO DAILY 10/10/22 11/16/24 History traZODone HCL 300 mg PO HS 10/10/22 11/16/24 History Fluticasone Nasal [place] [Flonase 1 spray EA NOSTRIL DAILY 01/01/24 11/16/24 History Nasal [place]] Melatonin 10 mg PO HS 01/01/24 11/16/24 History Mirabegron [Myrbetriq] 50 mg PO DAILY 01/01/24 11/16/24 History busPIRone HCL 5 mg PO BID 01/01/24 11/16/24 History Dapagliflozin Propanediol [Farxiga] 10 mg PO DAILY 30 Days #30 tablet 01/02/24 11/16/24 Rx Insulin Aspart 8 units SQ TID 30 Days #10 ml 01/02/24 11/16/24 Rx Insulin Glargine (Lantus) [Lantus 12 unit SQ QAM 11/16/24 11/16/24 History Vial] Allergies Allergy/AdvReac Type Severity Reaction Status Date / Time No Known Allergies Allergy Verified 11/16/24 13:41 Physical Examination Osteopathic Statement: *. No significant issues noted on an osteopathic structu ral exam other than those noted in the History and Physical/Consult.
[~2024-11-19 09:57] MED LIST changes: -HYDROmorphone 0.5 MG/0.5 ML SYRINGE IVP PRN; -ONDANSETRON 4 MG/2 ML VIAL IVP ONE; +Pre Op ABX Message 1 EACH MISC MISCELLANE ONE; +TRANEXAMIC 1,000 MG/100ML-NACL 1,000 MG in SALINE 1 100ML.BAG IVPB PRN; -droPERidol 5 MG/2 ML VIAL IVP ONE
[2024-11-19] MEDS: ONDANSETRON 4 MG/2 ML VIAL IVP PRN (10:30)
[2024-11-19] MEDS: DEXAMETHASONE SOD PHOSPHATE 4 MG/ML 1 ML VIAL IVP STA (10:31)
[2024-11-19] MEDS: GABAPENTIN 300 MG CAP PO PRN (10:31)
[2024-11-19] MEDS: ACETAMINOPHEN TAB 500 MG TAB PO PRN (10:31)
[2024-11-19] MEDS: IV FLUID CONTINUATION 1,000 ML IV ONE ×3 (10:32→12:54)
[2024-11-19] MEDS: LACTATED RINGERS 1,000 ML IV SCH (10:32)
[2024-11-19 10:35] LABS: Glucose,Whole Blood 125 mg/dL (70-110)
[2024-11-19] MEDS ORDERED: TRANEXAMIC 1,000 MG/100ML-NACL PREMIX BAG ONE (10:39)
[2024-11-19] MEDS ORDERED: LIDOCAINE 1% INJ 10MG/ML (20 ML MDV) ONE (10:39)
[2024-11-19] MEDS ORDERED: PROPOFOL 10 MG/ML 20 ML VIAL IV ONE (10:39)
[2024-11-19] MEDS ORDERED: MIDAZOLAM 2 MG/2 ML VIAL ONE (10:39)
[2024-11-19] MEDS ORDERED: ALBUTEROL HFA INHALER INHALATION ONE (10:39)
[2024-11-19] MEDS ORDERED: fentaNYL (PF) 50 MCG/ML 2 ML AMP ONE (10:39)
[2024-11-19] MEDS ORDERED: SUCCINYLCHOLINE CHLORIDE 200 MG/10 ML VIAL IV ONE (10:39)
[2024-11-19] MEDS: BUPIVACAINE (PF) 0.5% 30 ML VIAL SQ ONE (10:50)
[2024-11-19] MEDS: LIDOCAINE 2%-EPI 1:100,000 20 ML VIAL SQ ONE (10:50)
--- NOTE | 2024-11-19 11:52 | P.OP ---
Date of Procedure: 11/19/24 Preoperative Diagnosis: 1. L5-S1 FACET ARTHROPATHY, SEVRE 2. LOW BACK PAIN 3. S/P L4-5 FUSION WITH ASD 4. COMPLEX MEDICAL PATIENT Postoperative Diagnosis: 1. L5-S1 FACET ARTHROPATHY, SEVRE 2. LOW BACK PAIN 3. S/P L4-5 FUSION WITH ASD 4. COMPLEX MEDICAL PATIENT Procedure(s) Performed: 1. BILATERAL L5-S1 MEDIAL BRANCH TRANSECTION UNDER DIRECT VISUALIZATION ENDO Implants: NONE Anesthesia: GETA Surgeon: Marco Contreras Brake Tester #1: Harish Resendiz (was present and assisted with all aspects of the case frm position to dressing placement) Estimated Blood Loss (ml): 5 IV fluids (ml): 500 Urine output (ml): 0 Pathology: none sent Condition: stable Disposition: PACU Indications for Procedure: Jordi Adhikari presented today with ongoing left-sided lower back pain, primarily originating from the L5-S1 region and the SI joint, despite previous interventions including injections that provided only temporary relief. The pain is described as diffuse and radiating to the buttock region. A medial branch transection procedure was discussed as a potential next step to alleviate pain, with the expectation of significant relief. Jordi is considering this minimally invasive procedure, which involves cutting the nerve causing the pain, similar to a knee scope but on the back. The procedure is expected to provide 70-80% pain relief. Jordi is ambulatory and has had multiple surgeries in the past year, indicating a high tolerance for surgical interventions. SURGICAL PLAN: L5-S1 MEDIAL BRANCH TRANSECTION Description of Procedure: L5-S1 BILATERAL ENDO MBT The patient was seen and examined in the preoperative area. All preoperative protocols were followed. Informed consent was obtained, risks and benefits of the procedure were discussed at length. Risks including bleeding infection damage to the surrounding tissue and risk of reoperation were discussed with the patient. Risk of anesthesia up to and including was discussed with the patient. These are outlined in the risk review. They were willing to accept these risks and all of the risks of surgery. The patient was given a weight- based dose of antibiotics in the form of 2 g Ancef. The patient was seen and evaluated by the anesthesia team who deemed them fit for surgery. The site was marked, the patient was willing to proceed with the procedure. The patient was transferred to the operative suite by the Department of anesthesia. They were then drifted off to sleep by the department anesthesia and GETA was performed. The patient tolerated this well. Once confirmation of lines and ventilation the patient was transferred to a [prone Osmar table very carefully]. All bony prominences including wrists, elbows, axilla, chest, hips, and thighs, and feet were padded very well. Special attention was paid to the genitalia and these were padded accordingly. SCDs were placed on bilateral lower extremities and were connected. Arms were well padded and placed [on arm boards up and out in the 90/90 position]. Once in position, again we confirmed good ventilation capabilities and that lines were running appropriately. The patient's lumbar spine was then exposed. 1010s were placed outlining the incision site. Standard alcohol was used to clean the incision site and allowed to dry. C-arm was used to biomark the patient and confirm level for incision which was marked with a skin marker. Operative briefing was performed with all teams and everyone in agreement to proceed. The patient was then prepped and draped in a normal sterile fashion. Timeout was then performed and all parties were in agreement with the procedure to be performed. 18-gauge needle and was then used to localize the left side L5-S1 facet joint. Lidocaine 2% with epi and Marcaine .25% w/o placed in this area. Skin max was then made and a trocar for the scope was entered. X-ray used to localize this area. Once this was confirmed an accessory portal was made and a trocar placed through here. We then used the ArthroCare wand to skeletonize the transverse process on the left-hand side at L5-S1 as well as sacral ala. This was then followed out medially until the L5-S1 facet joint medially and mamillary process was identified as well as the ligament in this area. Nerve was identified at L5-S1 level and visualized directly when it was transected. ArthroCare wand was then used to burn the area to retract the nerve ends. The scope was lavaged with pictures taken in this area and inspected there was no damage or issues and no bleeding. The scope was removed. This was then repeated on the contralateral side for L5-S1 MBT on the right side as well. Fluoroscopic localization was done, followed by local anesthetic. Skin nicks made, scope introduced and MBT done as described above. The scope was lavaged with pictures taken in this area and inspected there was no damage or issues and no bleeding. The scope was removed. The wounds were then cleaned and simple stitches were placed in the skin and they were glued. These were then dressed sterilely with Band-Aids. The patient was transferred back to their hospital bed atraumatically. Patient was then awakened and extubated by the department of anesthesia having tolerated the procedure very well with no complications. They were transferred to the postoperative care unit in stable condition.
[2024-11-19] MEDS: HYDROmorphone 0.5 MG/0.5 ML SYRINGE IVP PRN (12:06)
[2024-11-19 12:13] VITALS: TEMP 97.1
--- NOTE | 2024-11-19 12:18 | FL ---
EXAMINATION TYPE: FL guidance operating room, XR lumbar spine 2 or 3V DATE OF EXAM: 11/19/2024 11:46 AM COMPARISON: Pre Operative Images if available both CT/MRI or plain film CLINICAL INDICATION: Male, 74 years old with history of M12.9 LOW BACK PAIN; TECHNIQUE: FL guidance operating room, XR lumbar spine 2 or 3V, multiple fluoroscopic images provided for procedure. DAP: 0.60864 mGym2 Gycm2 uGym2 cGycm2 or equivalent. FINDINGS: Fluoroscopic images during internal fixation/arthroplasty demonstrate hardware in appropriate positio n. Hardware appears intact. No immediate complication identified. IMPRESSION: 1. No evidence for intraoperative complication. 2. Please see the operative/procedural note for further details. [facility], , 11/19/2024 12:15 PM
[2024-11-19 12:36] LABS: Glucose,Whole Blood 121 mg/dL (70-110)
[2024-11-19 13:09] VITALS: RESP 16
[2024-11-19] MEDS: HYDROcodone/APAP 10-325MG 1 EACH TAB PO ONE (13:14)
[2024-11-19 13:19] VITALS: PULSE 60
[2024-11-19 13:37] VITALS: BP 143/96
== END 2024-11-19 13:56 | disposition home or self-care (01) ==
LOC: OR 09:57
PROVIDERS: ATTEND Orthopaedic Surgery
DX: M47.817 Spondylosis without myelopathy or radiculopathy, lumbosacral region (principal); M54.16 Radiculopathy, lumbar region; J43.9 Emphysema, unspecified; J44.9 Chronic obstructive pulmonary disease, unspecified; I73.9 Peripheral vascular disease, unspecified; K21.9 Gastro-esophageal reflux disease without esophagitis; I10 Essential (primary) hypertension; E11.9 Type 2 diabetes mellitus without complications; E78.5 Hyperlipidemia, unspecified; G47.33 Obstructive sleep apnea (adult) (pediatric); Z90.89 Acquired absence of other organs; Z87.891 Personal history of nicotine dependence; Z79.4 Long term (current) use of insulin; Z79.01 Long term (current) use of anticoagulants; Z79.84 Long term (current) use of oral hypoglycemic drugs; Z79.51 Long term (current) use of inhaled steroids; Z79.899 Other long term (current) drug therapy
CPT/HCPCS: 72100; 64772; J2250; J0330; J1100; J0690; J2405; J2003; J3010; J2704; J1171; J0665